=== PATIENT | male | born 1985 | race Caucasian/White ===

== ENCOUNTER 2016-04-12 21:39 | Emergency (ER) | payer SELFPAY ==
[~2016-04-12] VITALS: Ht 175.3 cm; Wt 96.4 kg
[~2016-04-12 21:39] MED LIST: VIST50CA PO; Z.0.NO CURRENT MEDS
[2016-04-12 21:40] VITALS: BP 142/92; PULSE 95; RESP 16; TEMP 99.6; O2SAT 97
--- NOTE | 2016-04-12 22:05 | PD ---
HPI Chief Complaint: Cold / Flu Symptoms Time Seen by Provider: 22:05 Travel History International Travel<30 days: No Contact w/Intl Traveler<30days: No Traveled to known affect area: No History of Present Illness HPI 30-year-old male with no significant medical history presents to the emergency department for cough, chest congestion, fever, and chills for the last 3 days. Patient states he's been taking [id number] antitussive with no relief of his symptoms. Cough is intermittently productive. States he has been unable to smoke tobacco cigarettes since it began. Denies any pain. No nausea, vomiting, no diarrhea. No other symptoms to report. PFSH Past Medical History Medical History: Denies Significant Hx Social History Alcohol Use: No Tobacco Use: Yes Substance Use: No Allergies-Medications (Allergen,Severity, Reaction): Coded Allergies: Benadryl (Verified Allergy, Severe, CAN'T REMEMBER, 04/01/12) Reglan (Verified Allergy, Severe, CAN'T REMEMBER, 04/01/12) Reported Meds & Prescriptions Reported Meds & Active Scripts Active Prednisone 50 Mg Tab 50 Mg PO DAILY 5 Days Proair Hfa 8.5 GM Inh (Albuterol Sulfate) 90 Mcg/Act Aer 2 Puff INH Q4HR PRN 108 mcg/actuation Zithromax Z-Jose (Azithromycin) 250 Mg Dspk 250 Mg PO DIRECTED 500 MG (2 tabs) day 1, then 1 tab days 2-5. Vistaril 50 MG CAP (Hydroxyzine Pamoate) 50 Mg Cap 50 Mg PO Q6HPRN Reported No Current Meds (Miscellaneous Medication) [facility] Review of Systems Except as stated in HPI: all other systems reviewed are Neg Physical Exam Narrative GENERAL: Well-nourished male patient, in no acute distress SKIN: Warm and dry. HEAD: Atraumatic. Normocephalic. EYES: Pupils equal and round. No scleral icterus. No injection or drainage. ENT: No nasal bleeding or discharge. Mucous membranes pink and moist. NECK: Trachea midline. No JVD. CARDIOVASCULAR: Elevated rate and rhythm. No murmur appreciated. RESPIRATORY: No accessory muscle use. Coarse throughout with inspiratory and expiratory wheezes in the right upper lobe GASTROINTESTINAL: Abdomen soft, non-tender, nondistended. Hepatic and splenic margins not palpable. MUSCULOSKELETAL: No obvious deformities. No clubbing. No cyanosis. No edema. NEUROLOGICAL: Awake and alert. No obvious cranial nerve deficits. Motor grossly within normal limits. Normal speech. PSYCHIATRIC: Appropriate mood and affect; insight and judgment normal. Data Data Last Documented VS Vital Signs Date Time Temp Pulse Resp B/P Pulse Ox O2 Delivery O2 Flow Rate FiO2 04/12/16 21:59 Room Air 04/12/16 21:40 99.6 95 16 142/92 97 Orders Influenzae A/B Antigen (04/12/16 22:11) Chest, Single Ap (04/12/16 ) Group A Rapid Strep Screen (04/12/16 22:11) Ibuprofen (Motrin) (04/12/16 22:15) Albuterol-Ipratropium Neb (Duoneb Neb) (04/12/16 22:15) Strep Culture (Group A) (04/12/16 22:20) MDM Medical Decision Making Medical Screen Exam Complete: Yes Emergency Medical Condition: Yes Medical Record Reviewed: Yes Differential Diagnosis Influenza versus pneumonia versus bronchitis versus viral illness Narrative Course 30-year-old male presents to the emergency department for evaluation. Patient appears without distress. He does have coarse breath sounds throughout with inspiratory and expiratory wheeze in the right upper lobe. DuoNeb was provided. X-ray imaging shows Last Impressions Chest X-Ray 04/12/16 0000 Signed Impressions: Service Date/Time: Tuesday, April 12, 2016 22:50 - CONCLUSION: 1. Subsegmental basilar and perihilar airspace disease most characteristic of a mild bronchopneumonia. Anthony Robertson MD Patient has low-grade temperature here. He is counseled on smoking cessation. He'll be started on azithromycin, short course of oral steroids, and provided a pro-air inhaler prescription. He agrees to return immediately with any acute worsening of symptoms. Diagnosis Primary Impression: Bronchopneumonia Referrals: Primary Care Physician Patient Instructions: Community Acquired Pneumonia (ED), General Instructions Additional Instructions: Humidified air may help to alleviate symptoms Tylenol or ibuprofen as directed on the package as needed for pain and/or fever Return immediately to the emergency department with any acute worsening of symptoms Med/Other Pt SpecificInfo: Prescription(s) given Scripts Prednisone 50 Mg Tab50 Mg PO DAILY 5 Days Ref 0 Prov:Michell Shukla 04/12/16 Albuterol 8.5 GM Inh (Proair Hfa 8.5 GM Inh)90 Mcg/Act Aer2 Puff INH Q4HR PRN ( SHORTNESS OF BREATH) #1 INHALER Ref 0 108 mcg/actuation Prov:Michell Shukla 04/12/16 Azithromycin (Zithromax Z-Jose)250 Mg [id number] Mg PO DIRECTED #1 DSPK Ref 0 500 MG (2 tabs) day 1, then 1 tab days 2-5. Prov:Michell Shukla 04/12/16 Disposition: 01 DISCHARGE HOME Condition: Stable Michell Shukla Apr 12, 2016 22:05
[2016-04-12] MEDS ORDERED: IBUPROFEN 800 MG TAB PO ONE (22:15)
[2016-04-12] MEDS ORDERED: RESP: ALBUTEROL 2.5 MG/IPRATROPIUM 0.5 MG NEB (SCH) NEB ONE (22:15)
--- NOTE | 2016-04-12 22:58 | RADRPT ---
EXAM DATE/TIME: 04/12/2016 22:50 [facility] COMPARISON: No previous studies available for comparison. INDICATIONS : Flu like symptoms and cough for four days. MEDICAL HISTORY : None. SURGICAL HISTORY : None. ENCOUNTER: Initial ACUITY: 4 - 6 days PAIN SCORE: 9/10 LOCATION: Bilateral upper chest FINDINGS: There is subsegmental basilar airspace disease most characteristic of a mild bronchopneumonia. No eff usion. No pneumothorax. Heart size normal. CONCLUSION: 1. Subsegmental basilar and perihilar airspace disease most characteristic of a mild bronchopneumonia . Anthony Robertson MD on April 12, 2016 at 22:56 Board Certified Radiologist. This report was verified electronically.
[2016-04-12] MEDS ORDERED: ZITHTAB PO (23:06)
[2016-04-12] MEDS ORDERED: ALBUAER3 INH (23:07)
[2016-04-12] MEDS ORDERED: PRED50 PO (23:07)
== END 2016-04-12 23:12 | disposition home or self-care (01) ==
LOC: NEPB 21:39
DX: J18.0 Bronchopneumonia, unspecified organism (principal); Z72.0 Tobacco use
CPT/HCPCS: 71010; 87081; 87804; 87880; 94664; 99283

== ENCOUNTER 2016-05-25 15:49 | Emergency (ER) | payer SELFPAY ==
[~2016-05-25] VITALS: Ht 172.7 cm; Wt 97.5 kg
[~2016-05-25 15:49] MED LIST changes: +ALBUAER3 INH; +PRED50 PO; +ZITHTAB PO
[2016-05-25 15:50] VITALS: BP 146/79; PULSE 129; PULSE 229; RESP 20; TEMP 98.6; O2SAT 96
[2016-05-25 16:09] VITALS: PULSE 111
[2016-05-25] MEDS ORDERED: SODIUM CHLORIDE 0.9% FLUSH 10 ML FLUSH IVF PRN (21:30)
--- NOTE | 2016-05-25 21:30 | PD ---
HPI Chief Complaint: Medical Clearance Time Seen by Provider: 21:30 Travel History International Travel<30 days: No Contact w/Intl Traveler<30days: No Traveled to known affect area: No History of Present Illness HPI 30-year-old male presents to the emergency department for evaluation of chest pain and medical clearance. The patient states that he has a history of substance abuse and has been on a "gibson" over the past 5 days. States that he went to [facility] today to check himself into detox and they told him that his heart rate was too high and that he would have to come here for medical clearance before he could enter their program. Patient states that since leaving there he began to develop right chest wall pain. States that the pain is sharp and intermittent aggravated with movement and inspiration. He denies any shortness of breath, difficulty breathing, lightheadedness, dizziness , nausea, vomiting, abdominal pain, cough or cold symptoms. Denies any history of heart disease or OR. Denies any family history of sudden cardiac . States that he last used drugs yesterday, has not used any today. States that he uses IV methamphetamines, Dilaudid and crack, he also smokes the crack and meth. No other complaints. He is requesting something to eat and drink. PFSH Past Medical History Medical History: Denies Significant Hx Past Surgical History Surgical History: No Previous Surgery Social History Alcohol Use: Yes (OCC) Tobacco Use: Yes (1/2PPD) Substance Use: Yes (METH 05/24/16) Allergies-Medications (Allergen,Severity, Reaction): Coded Allergies: Benadryl (Verified Allergy, Severe, CAN'T REMEMBER, 05/25/16) Reglan (Verified Allergy, Severe, CAN'T REMEMBER, 05/25/16) Reported Meds & Prescriptions Reported Meds & Active Scripts Active No Active Prescriptions or Reported Medications Review of Systems Except as stated in HPI: all other systems reviewed are Neg Physical Exam Narrative GENERAL: Well-nourished and well-developed pleasant male patient in no acute distress who is nontoxic appearing. SKIN: Warm and dry. HEAD: Normocephalic and atraumatic. EYES: No injection, drainage, or hyphema noted. PERRLA. EOMI. ENT: No nasal drainage noted. Oropharynx is clear. NECK: Supple and the trachea is midline. CARDIOVASCULAR: Regular rate and rhythm. RESPIRATORY: Breath sounds are equal bilaterally with no accessory muscle use, wheezing, rhonchi, or crackles. GASTROINTESTINAL: Abdomen is soft, non-tender, and nondistended. MUSCULOSKELETAL: No obvious deformities, swelling, cyanosis, or ecchymosis is present throughout the upper and lower extremities. Patient has full range of motion without any signs of neurovascular compromise. NEUROLOGICAL: Awake, alert, and oriented. Normal speech and gait. Cranial nerves are grossly intact. Data Data Last Documented VS Vital Signs Date Time Temp Pulse Resp B/P Pulse Ox O2 Delivery O2 Flow Rate FiO2 05/25/16 22:27 98.0 104 20 122/75 96 Room Air Orders Electrocardiogram (05/25/16 ) Ckmb (Isoenzyme) Profile (05/25/16 21:25) Complete Blood Count With Diff (05/25/16 21:25) Comprehensive Metabolic Panel (05/25/16 21:25) Magnesium (Mg) (05/25/16 21:25) Prothrombin Time / Inr (Pt) (05/25/16 21:25) Act Partial Throm Time (Ptt) (05/25/16 21:25) Troponin I (05/25/16 21:25) Chest, Single Ap (05/25/16 21:25) Ecg Monitoring (05/25/16 21:25) Bilateral Bp Monitoring (05/25/16 21:25) Iv Access Insert/Monitor (05/25/16 21:25) Oximetry (05/25/16 21:25) Oxygen Administration (05/25/16 21:25) Sodium Chloride 0.9% Flush (Ns Flush) (05/25/16 21:30) D-Dimer (05/25/16 21:30) Sodium Chlor 0.9% 1000 Ml Inj (Ns 1000 M (05/25/16 22:19) Lorazepam Inj (Ativan Inj) (05/25/16 23:00) Labs Laboratory Tests Test 05/25/16 22:20 White Blood Count 15.1 TH/MM3 Red Blood Count 5.71 MIL/MM3 Hemoglobin 16.5 GM/DL Hematocrit 46.4 % Mean Corpuscular Volume 81.2 FL Mean Corpuscular Hemoglobin 28.9 PG Mean Corpuscular Hemoglobin 35.6 % Concent Red Cell Distribution Width 14.8 % Platelet Count 219 TH/MM3 Mean Platelet Volume 8.2 FL Neutrophils (%) (Auto) 73.5 % Lymphocytes (%) (Auto) 17.3 % Monocytes (%) (Auto) 8.3 % Eosinophils (%) (Auto) 0.5 % Basophils (%) (Auto) 0.4 % Neutrophils # (Auto) 11.1 TH/MM3 Lymphocytes # (Auto) 2.6 TH/MM3 Monocytes # (Auto) 1.3 TH/MM3 Eosinophils # (Auto) 0.1 TH/MM3 Basophils # (Auto) 0.1 TH/MM3 CBC Comment DIFF FINAL Differential Comment Prothrombin Time 11.2 SEC Prothromb Time International 1.0 RATIO Ratio Activated Partial 30.0 SEC Thromboplast Time Sodium Level 142 MEQ/L Potassium Level 3.6 MEQ/L Chloride Level 105 MEQ/L Carbon Dioxide Level 28.7 MEQ/L Anion Gap 8 MEQ/L Blood Urea Nitrogen 14 MG/DL Creatinine 1.21 MG/DL Estimat Glomerular Filtration 71 ML/MIN Rate Random Glucose 88 MG/DL Calcium Level 9.1 MG/DL Magnesium Level 2.3 MG/DL Aspartate Amino Transf 8 U/L (AST/SGOT) Alanine Aminotransferase 17 U/L (ALT/SGPT) Albumin 4.2 GM/DL MDM Medical Decision Making Medical Screen Exam Complete: Yes Emergency Medical Condition: Yes Differential Diagnosis Chest wall pain versus pleuritic pain versus musculoskeletal pain versus ACS versus substance abuse Narrative Course 30-year-old male with history of substance abuse presents to the emergency department requesting medical clearance and complaining of chest pain. Patient is initially tachycardic with a heart rate of 129 bpm. His heart rate is now normalized to 100 bpm. EKG shows sinus tachycardia with no acute ST elevations or depressions. Physical examination essentially unremarkable. IV access is obtained, labs are drawn and sent. Chest x-ray is negative for any acute abnormalities. Patient signed out to Dr. Trent who will assume care of the patient and disposition. Scripts No Active Prescriptions or Reported Meds Jeana Ashton May 25, 2016 21:30
[2016-05-25 22:01] VITALS: RESP 20
--- NOTE | 2016-05-25 22:03 | RADRPT ---
EXAM DATE/TIME: 05/25/2016 21:42 [facility] COMPARISON: CHEST SINGLE AP, April 12, 2016, 22:50. INDICATIONS : Chest pain. MEDICAL HISTORY : None. SURGICAL HISTORY : None. ENCOUNTER: Initial ACUITY: 1 day PAIN SCORE: 10/10 LOCATION: middle chest. FINDINGS: The lungs are clear without infiltrate, nodule, or mass. There is no appreciable pleural effusion fo r technique. Heart and mediastinum are unremarkable. CONCLUSION: No acute cardiopulmonary disease. Clover Banuelos MD on May 25, 2016 at 22:01 Board Certified Radiologist. This report was verified electronically.
[2016-05-25] MEDS ORDERED: SODIUM CHLOR 0.9% 1000 ML INJ 1,000 ML IV SCH (22:19)
[2016-05-25 22:27] VITALS: BP 122/75; PULSE 104; RESP 20; TEMP 98; O2SAT 96
[2016-05-25 22:42] LABS: AUTOMATED NEUTROPHIL # 11.1 TH/MM3 (1.8-7.7); BASOPHIL # 0.1 TH/MM3 (0-0.2); BASOPHIL % 0.4 % (0.0-2.0); EOSINOPHIL # 0.1 TH/MM3 (0-0.4); EOSINOPHIL % 0.5 % (0.0-4.0); HEMATOCRIT 46.4 % (39.0-51.0); HEMO FLAGS DIFF FINAL; LYMPH % 17.3 % (9.0-44.0); LYMPHOCYTE # 2.6 TH/MM3 (1.0-4.8); MEAN CELL VOLUME 81.2 FL (80.0-100.0); MEAN CORPUSCULAR HEMOGLOBIN 28.9 PG (27.0-34.0); MEAN CORPUSCULAR HGB CONC 35.6 % (32.0-36.0); MONO % 8.3 % (0.0-8.0); NEUT % 73.5 % (16.0-70.0); PLATELET COUNT 219 TH/MM3 (150-450); RED BLOOD COUNT 5.71 MIL/MM3 (4.50-5.90); RED CELL DISTRIBUTION WIDTH 14.8 % (11.6-17.2); WHITE BLOOD COUNT 15.1 TH/MM3 (4.0-11.0)
[2016-05-25 22:51] LABS: PROTHROMBIN TIME - PATIENT 11.2 SEC (9.8-11.6)
[2016-05-25 22:59] LABS: ALT (GPT) 17 U/L (12-78); ANION GAP 8 MEQ/L (5-15); AST (GOT) 8 U/L (15-37); BICARBONATE 28.7 MEQ/L (21.0-32.0); BLOOD UREA NITROGEN 14 MG/DL (7-18); CHLORIDE 105 MEQ/L (98-107); GLOMERULAR FILTRATION RATE 71 ML/MIN (>89); MAGNESIUM 2.3 MG/DL (1.5-2.5); POTASSIUM 3.6 MEQ/L (3.5-5.1); SODIUM (NA) 142 MEQ/L (136-145)
[2016-05-25] MEDS ORDERED: LORazepam 2 MG/ML VIAL IV PUSH ONE (23:00)
[2016-05-25 23:02] LABS: ALKALINE PHOSPHATASE 67 U/L (45-117); CREATINE KINASE 177 U/L (39-308); TOTAL BILIRUBIN ADULT 1.5 MG/DL (0.2-1.0)
[2016-05-25 23:15] LABS: CKMB 1.7 NG/ML (0.5-3.6)
[2016-05-25] MEDS ORDERED: IOHEXOL 350 MG/ML 10 ML VIAL (for RAD DIAG) IV ONE (23:52)
--- NOTE | 2016-05-26 00:05 | RADRPT ---
EXAM DATE/TIME: 05/25/2016 23:51 [facility] COMPARISON: CHEST SINGLE AP, May 25, 2016, 21:42. INDICATIONS : Chest pain. IV CONTRAST: 72 cc Omnipaque 350 (iohexol) IV RADIATION DOSE: 233.38 CTDIvol (mGy) MEDICAL HISTORY : None SURGICAL HISTORY : None. ENCOUNTER: Initial ACUITY: 1 day PAIN SCALE: 6/10 LOCATION: Bilateral chest TECHNIQUE: Volumetric scanning of the chest was performed using a pulmonary embolism protocol MIP images were re constructed. Using automated exposure control and adjustment of the mA and/or kV according to patien t size, radiation dose was kept as low as reasonably achievable to obtain optimal diagnostic quality images. FINDINGS: PULMONARY ARTERIES: No filling defects are seen in the pulmonary arteries through the segmental level. LUNGS: There is no consolidation or pneumothorax . No concerning pulmonary nodule is visualized. PLEURAE: There is no pleural thickening or pleural effusion. MEDIASTINUM: There is good visualization of the great vessels of the middle mediastinum. No evidence of mediastin al or hilar adenopathy/mass. MUSCULOSKELETAL: Within normal limits for patient age. MISCELLANEOUS: The visualized upper abdominal organs demonstrate no acute abnormality. CONCLUSION: Normal examination. Gino Barajas MD on May 26, 2016 at 0:02 Board Certified Radiologist. This report was verified electronically.
--- NOTE | 2016-05-26 00:45 | PD ---
Data Data Last Documented VS Vital Signs Date Time Temp Pulse Resp B/P Pulse Ox O2 Delivery O2 Flow Rate FiO2 05/25/16 22:27 98.0 104 20 122/75 96 Room Air Orders Electrocardiogram (05/25/16 ) Ckmb (Isoenzyme) Profile (05/25/16 21:25) Complete Blood Count With Diff (05/25/16 21:25) Comprehensive Metabolic Panel (05/25/16 21:25) Magnesium (Mg) (05/25/16 21:25) Prothrombin Time / Inr (Pt) (05/25/16 21:25) Act Partial Throm Time (Ptt) (05/25/16 21:25) Troponin I (05/25/16 21:25) Chest, Single Ap (05/25/16 21:25) Ecg Monitoring (05/25/16 21:25) Bilateral Bp Monitoring (05/25/16 21:25) Iv Access Insert/Monitor (05/25/16 21:25) Oximetry (05/25/16 21:25) Oxygen Administration (05/25/16 21:25) Sodium Chloride 0.9% Flush (Ns Flush) (05/25/16 21:30) D-Dimer (05/25/16 21:30) Sodium Chlor 0.9% 1000 Ml Inj (Ns 1000 M (05/25/16 22:19) Lorazepam Inj (Ativan Inj) (05/25/16 23:00) Ct Pulmonary Angiogram (05/25/16 23:02) CKMB (05/25/16 22:20) CKMB% (05/25/16 22:20) Iohexol 350 Inj (Omnipaque 350 Inj) (05/25/16 23:52) Labs Laboratory Tests Test 05/25/16 22:20 White Blood Count 15.1 TH/MM3 Red Blood Count 5.71 MIL/MM3 Hemoglobin 16.5 GM/DL Hematocrit 46.4 % Mean Corpuscular Volume 81.2 FL Mean Corpuscular Hemoglobin 28.9 PG Mean Corpuscular Hemoglobin 35.6 % Concent Red Cell Distribution Width 14.8 % Platelet Count 219 TH/MM3 Mean Platelet Volume 8.2 FL Neutrophils (%) (Auto) 73.5 % Lymphocytes (%) (Auto) 17.3 % Monocytes (%) (Auto) 8.3 % Eosinophils (%) (Auto) 0.5 % Basophils (%) (Auto) 0.4 % Neutrophils # (Auto) 11.1 TH/MM3 Lymphocytes # (Auto) 2.6 TH/MM3 Monocytes # (Auto) 1.3 TH/MM3 Eosinophils # (Auto) 0.1 TH/MM3 Basophils # (Auto) 0.1 TH/MM3 CBC Comment DIFF FINAL Differential Comment Prothrombin Time 11.2 SEC Prothromb Time International 1.0 RATIO Ratio Activated Partial 30.0 SEC Thromboplast Time D-Dimer Quantitative (PE/DVT) 0.27 MG/L FEU Sodium Level 142 MEQ/L Potassium Level 3.6 MEQ/L Chloride Level 105 MEQ/L Carbon Dioxide Level 28.7 MEQ/L Anion Gap 8 MEQ/L Blood Urea Nitrogen 14 MG/DL Creatinine 1.21 MG/DL Estimat Glomerular Filtration 71 ML/MIN Rate Random Glucose 88 MG/DL Calcium Level 9.1 MG/DL Magnesium Level 2.3 MG/DL Total Bilirubin 1.5 MG/DL Aspartate Amino Transf 8 U/L (AST/SGOT) Alanine Aminotransferase 17 U/L (ALT/SGPT) Alkaline Phosphatase 67 U/L Total Creatine Kinase 177 U/L Creatine Kinase MB 1.7 NG/ML Troponin I LESS THAN 0.02 NG/ML Total Protein 7.1 GM/DL Albumin 4.2 GM/DL [facility] Medical Record Reviewed: Yes Supervised Visit with TIMI: Yes Narrative Course I, Dr. Trent, have reviewed the advance practice practitioner's documentation and am in agreement, met with the patient face to face, made the diagnosis, and the medical decision making was done by me. *My assessment and Findings: Work up today reveals the following: CBC & BMP Diagram 05/25/16 22:20 LFTs normal Tn < 0.02 EKG: Sinus, rate 111, FL interval 112, normal axis Last [address] Angiography 05/25/162301 Signed Impressions: Service Date/Time: Wednesday, May 25, 2016 23:51 - CONCLUSION: Normal examination. Gino Barajas MD Chest X-Ray 05/25/162124 Signed Impressions: Service Date/Time: Wednesday, May 25, 2016 21:42 - CONCLUSION: No acute cardiopulmonary disease. Clover Banuelos MD Patient has been resting comfortably since he received Ativan. He was encountered talking with his friend on the phone upon reexamination prior to discharge. We discussed potential etiologies for the patient's tachycardia. Obviously in the setting of IV drug abuse there is concern for endocarditis. He is afebrile. There is no evidence of septic embolic processes and the CT chest. In this scenario endocarditis is considered quite a bit less likely. The patient is medically clear for discharge. Diagnosis Primary Impression: Tachycardia Additional Impression: Polysubstance abuse Referrals: [facility] 1 day Additional Instruction: You have a choice when it comes to health care, and we are glad that you chose [facility]. Hopefully, we have met your expectations on today's visit. You are welcome to return to [facility] at any time, as we are committed to meeting the health care needs of our community. Med/Other Pt SpecificInfo: No Change to Meds Scripts No Active Prescriptions or Reported Meds Disposition: DISCHARGE HOME Condition: Stable Scottie Trent MD May 26, 2016 00:45
--- NOTE | 2016-05-26 10:37 | EKG ---
Date Performed: 05/25/2016 Time Performed: 16:22:17 PTAGE: 30 years EKG: SINUS TACHYCARDIA WITH SHORT MN INTERVAL ABNORMAL RHYTHM ECG PREVIOUS TRACING : 04/01/2012 13.02 DOCTOR: Wayne Palencia Interpretating Date/Time 05/26/2016 10:36:13
== END 2016-05-26 02:23 | disposition home or self-care (01) ==
LOC: NEPC 15:49
DX: Z02.89 Encounter for other administrative examinations (principal); R00.0 Tachycardia, unspecified; F19.10 Other psychoactive substance abuse, uncomplicated; F17.210 Nicotine dependence, cigarettes, uncomplicated
CPT/HCPCS: 71010; 71275; 80053; 82550; 82552; 83735; 84484; 85025; 85379; 85610; 85730; 93005; 96374; 99285; J2060; J7030; Q9967

== ENCOUNTER 2016-06-25 23:54 | Emergency (ER) | payer SELFPAY ==
[2016-06-26 00:30] VITALS: BP 113/61; PULSE 75; RESP 18; TEMP 97.7; O2SAT 97
[2016-06-26] MEDS ORDERED: SODIUM CHLORIDE 0.9% FLUSH 10 ML FLUSH IVF PRN (01:15)
[2016-06-26] MEDS ORDERED: SODIUM CHLORID 0.9% 500 ML INJ 500 ML IV ONE (01:15)
--- NOTE | 2016-06-26 01:19 | PD ---
HPI Chief Complaint: Cardiac Complaint Time Seen by Provider: 01:13 Travel History International Travel<30 days: No Contact w/Intl Traveler<30days: No Traveled to known affect area: No History of Present Illness HPI The patient is a 30-year-old male who presents to the emergency department from [facility] for chest pain. 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 The patient was at [facility] earlier today where he received Ativan, Benadryl, and clonidine. The patient developed left-sided chest pain which she described as dull, achy, nonradiating, and associated with a cough. Patient does have a history tobacco use, denies any shortness of breath, nausea, vomiting, or diaphoresis. The patient states that chest pain was dull, and is currently resolved. The patient denies any known history of coronary artery disease, hypertension, hyperlipidemia, diabetes, or significant family medical history for early CAD. He does have a history tobacco use. Symptoms are moderate, no known alleviating or exacerbating factors. PFSH Past Medical History Medical History: Denies Significant Hx Diminished Hearing: No Past Surgical History Surgical History: No Previous Surgery Social History Alcohol Use: Yes (OCC) Tobacco Use: Yes (2PPD) Substance Use: Yes (METH 05/24/16) Allergies-Medications (Allergen,Severity, Reaction): Coded Allergies: Benadryl (Verified Allergy, Severe, CAN'T REMEMBER, 05/25/16) Reglan (Verified Allergy, Severe, CAN'T REMEMBER, 05/25/16) Reported Meds & Prescriptions Reported Meds & Active Scripts Active No Active Prescriptions or Reported Medications Review of Systems Except as stated in HPI: all other systems reviewed are Neg Cardiovascular: Positive: Chest Pain or Discomfort, No: Diaphoresis Respiratory: Positive: Cough, No: Shortness of Breath Gastrointestinal: No: Nausea, Vomiting, Abdominal Pain Neurologic: No: Weakness, Dizziness Psychiatric: Positive: Substance Abuse Physical Exam Narrative GENERAL: Awake, alert, nontoxic-appearing 30-year-old male who appears his stated age and is in no acute respiratory distress. SKIN: Focused skin assessment warm/dry. HEAD: Atraumatic. Normocephalic. EYES: Pupils equal and round. Mild injection bilaterally. ENT: No nasal bleeding or discharge. Mucous membranes pink and moist. NECK: Trachea midline. No JVD. CARDIOVASCULAR: Regular rate and rhythm. No murmur appreciated. Palpation the chest wall does not reproduce symptoms. RESPIRATORY: No accessory muscle use. Clear to auscultation. Breath sounds equal bilaterally. GASTROINTESTINAL: Abdomen soft, non-tender, nondistended. No rebound tenderness. MUSCULOSKELETAL: No obvious deformities. No clubbing. No cyanosis. No edema. NEUROLOGICAL: Awake and alert. No obvious cranial nerve deficits. Motor grossly within normal limits. Normal speech. Nonfocal. PSYCHIATRIC: Appropriate mood and affect; insight and judgment normal. Data Data Last Documented VS Vital Signs Date Time Temp Pulse Resp B/P Pulse Ox O2 Delivery O2 Flow Rate FiO2 06/26/16 01:29 100 Room Air 06/26/16 01:29 74 16 06/26/16 00:30 97.7 113/61 Orders Electrocardiogram (06/26/16 01:13) Ckmb (Isoenzyme) Profile (06/26/16 01:13) Complete Blood Count With Diff (06/26/16 01:13) Comprehensive Metabolic Panel (06/26/16 01:13) Magnesium (Mg) (06/26/16 01:13) Troponin I (06/26/16 01:13) Lipase (06/26/16 01:13) Chest, Single Ap (06/26/16 01:13) Ecg Monitoring (06/26/16 01:13) Bilateral Bp Monitoring (06/26/16 01:13) Iv Access Insert/Monitor (06/26/16 01:13) Oximetry (06/26/16 01:13) Oxygen Administration (06/26/16 01:13) Sodium Chloride 0.9% Flush (Ns Flush) (06/26/16 01:15) Sodium Chlorid 0.9% 500 Ml Inj (Ns 500 M (06/26/16 01:15) CKMB (06/26/16 01:20) CKMB% (06/26/16 01:20) Labs Laboratory Tests Test 06/26/16 01:20 White Blood Count 6.0 TH/MM3 Red Blood Count 5.44 MIL/MM3 Hemoglobin 15.5 GM/DL Hematocrit 44.5 % Mean Corpuscular Volume 81.8 FL Mean Corpuscular Hemoglobin 28.4 PG Mean Corpuscular Hemoglobin 34.8 % Concent Red Cell Distribution Width 14.4 % Platelet Count 171 TH/MM3 Mean Platelet Volume 7.8 FL Neutrophils (%) (Auto) 70.8 % Lymphocytes (%) (Auto) 16.6 % Monocytes (%) (Auto) 11.1 % Eosinophils (%) (Auto) 0.6 % Basophils (%) (Auto) 0.9 % Neutrophils # (Auto) 4.3 TH/MM3 Lymphocytes # (Auto) 1.0 TH/MM3 Monocytes # (Auto) 0.7 TH/MM3 Eosinophils # (Auto) 0.0 TH/MM3 Basophils # (Auto) 0.1 TH/MM3 CBC Comment DIFF FINAL Differential Comment Sodium Level 138 MEQ/L Potassium Level 3.6 MEQ/L Chloride Level 101 MEQ/L Carbon Dioxide Level 31.0 MEQ/L Anion Gap 6 MEQ/L Blood Urea Nitrogen 13 MG/DL Creatinine 1.06 MG/DL Estimat Glomerular Filtration 83 ML/MIN Rate Random Glucose 90 MG/DL Calcium Level 8.7 MG/DL Magnesium Level 2.2 MG/DL Total Bilirubin 1.5 MG/DL Aspartate Amino Transf 16 U/L (AST/SGOT) Alanine Aminotransferase 19 U/L (ALT/SGPT) Alkaline Phosphatase 65 U/L Total Creatine Kinase 155 U/L Creatine Kinase MB 0.7 NG/ML Troponin I LESS THAN 0.02 NG/ML Total Protein 7.4 GM/DL Albumin 4.0 GM/DL Lipase 211 U/L MDM Medical Decision Making Medical Screen Exam Complete: Yes Emergency Medical Condition: Yes Medical Record Reviewed: Yes Interpretation(s) EKG reveals normal sinus rhythm with a rate of 71. Inverted T waves noted in lead 3. No evidence of pericarditis. No ischemic changes noted. Laboratory Tests Test 06/26/16 01:20 White Blood Count 6.0 TH/MM3 Red Blood Count 5.44 MIL/MM3 Hemoglobin 15.5 GM/DL Hematocrit 44.5 % Mean Corpuscular Volume 81.8 FL Mean Corpuscular Hemoglobin 28.4 PG Mean Corpuscular Hemoglobin 34.8 % Concent Red Cell Distribution Width 14.4 % Platelet Count 171 TH/MM3 Mean Platelet Volume 7.8 FL Neutrophils (%) (Auto) 70.8 % Lymphocytes (%) (Auto) 16.6 % Monocytes (%) (Auto) 11.1 % Eosinophils (%) (Auto) 0.6 % Basophils (%) (Auto) 0.9 % Neutrophils # (Auto) 4.3 TH/MM3 Lymphocytes # (Auto) 1.0 TH/MM3 Monocytes # (Auto) 0.7 TH/MM3 Eosinophils # (Auto) 0.0 TH/MM3 Basophils # (Auto) 0.1 TH/MM3 CBC Comment DIFF FINAL Differential Comment Sodium Level 138 MEQ/L Potassium Level 3.6 MEQ/L Chloride Level 101 MEQ/L Carbon Dioxide Level 31.0 MEQ/L Anion Gap 6 MEQ/L Blood Urea Nitrogen 13 MG/DL Creatinine 1.06 MG/DL Estimat Glomerular Filtration 83 ML/MIN Rate Random Glucose 90 MG/DL Calcium Level 8.7 MG/DL Magnesium Level 2.2 MG/DL Total Bilirubin 1.5 MG/DL Aspartate Amino Transf 16 U/L (AST/SGOT) Alanine Aminotransferase 19 U/L (ALT/SGPT) Alkaline Phosphatase 65 U/L Total Creatine Kinase 155 U/L Creatine Kinase MB 0.7 NG/ML Troponin I LESS THAN 0.02 NG/ML Total Protein 7.4 GM/DL Albumin 4.0 GM/DL Lipase 211 U/L Chest x-ray reveals normal examination. Differential Diagnosis Differential diagnosis includes pericarditis, myocarditis, acute coronary syndrome, bronchitis, pneumonia, musculoskeletal pain, withdrawal. Narrative Course IV was established, labs are drawn and sent, and the patient was placed on cardiac telemetry monitoring and continuous pulse oximetry monitoring. EKG was ordered and interpreted. Chest x-ray was obtained. The patient is currently chest pain-free and has no significant risk factors except for smoking, therefore, aspirin was withheld. The patient's initial troponin was negative. The patient's pain was several hours prior to arrival and dissipated prior to arrival. Patient has very atypical symptoms, he is stable for outpatient follow -up. Chest x-rays unremarkable. The patient will be sent back to [facility]. Diagnosis Primary Impression: Atypical chest pain Patient Instructions: General Instructions Additional Instructions: Transfer back to [facility]. Stop using drugs. Follow-up with your primary physician. Return if symptoms worsen or progress. Med/Other Pt SpecificInfo: No Change to Meds Scripts No Active Prescriptions or Reported Meds Disposition: DISCHARGE HOME Condition: Stable Noah Tabares MD Jun 26, 2016 01:19
[2016-06-26 01:29] VITALS: PULSE 74; RESP 16; O2SAT 100
[2016-06-26 01:37] LABS: AUTOMATED NEUTROPHIL # 4.3 TH/MM3 (1.8-7.7); BASOPHIL # 0.1 TH/MM3 (0-0.2); BASOPHIL % 0.9 % (0.0-2.0); EOSINOPHIL % 0.6 % (0.0-4.0); HEMATOCRIT 44.5 % (39.0-51.0); HEMO FLAGS DIFF FINAL; LYMPH % 16.6 % (9.0-44.0); MEAN CELL VOLUME 81.8 FL (80.0-100.0); MEAN CORPUSCULAR HEMOGLOBIN 28.4 PG (27.0-34.0); MEAN CORPUSCULAR HGB CONC 34.8 % (32.0-36.0); MONO % 11.1 % (0.0-8.0); NEUT % 70.8 % (16.0-70.0); PLATELET COUNT 171 TH/MM3 (150-450); RED BLOOD COUNT 5.44 MIL/MM3 (4.50-5.90); RED CELL DISTRIBUTION WIDTH 14.4 % (11.6-17.2)
[2016-06-26 01:58] LABS: ALT (GPT) 19 U/L (12-78); ANION GAP 6 MEQ/L (5-15); AST (GOT) 16 U/L (15-37); BLOOD UREA NITROGEN 13 MG/DL (7-18); CHLORIDE 101 MEQ/L (98-107); GLOMERULAR FILTRATION RATE 83 ML/MIN (>89); MAGNESIUM 2.2 MG/DL (1.5-2.5); POTASSIUM 3.6 MEQ/L (3.5-5.1); SODIUM (NA) 138 MEQ/L (136-145)
[2016-06-26 02:02] LABS: ALKALINE PHOSPHATASE 65 U/L (45-117); CREATINE KINASE 155 U/L (39-308); TOTAL BILIRUBIN ADULT 1.5 MG/DL (0.2-1.0)
[2016-06-26 02:14] LABS: CKMB 0.7 NG/ML (0.5-3.6)
--- NOTE | 2016-06-26 02:18 | RADRPT ---
EXAM DATE/TIME: 06/26/2016 01:23 [facility] COMPARISON: CHEST SINGLE AP, May 25, 2016, 21:42. INDICATIONS : Chest pain. MEDICAL HISTORY : Smoker. SURGICAL HISTORY : None. ENCOUNTER: Initial ACUITY: 1 day PAIN SCORE: 6/10 LOCATION: Left chest FINDINGS: A single view of the chest demonstrates the lungs to be symmetrically aerated without evidence of mas s, infiltrate or effusion. The cardiomediastinal contours are unremarkable. Osseous structures are intact. CONCLUSION: Normal examination. Ralph Barton Jr., MD on June 26, 2016 at 2:17 Board Certified Radiologist. This report was verified electronically.
--- NOTE | 2016-06-26 13:40 | EKG ---
Date Performed: 06/26/2016 Time Performed: 01:25:46 PTAGE: 30 years EKG: Sinus rhythm NORMAL ECG Compared to prior tracing no significant change PREVIOUS TRACING : 05/25/2016 16.22 DOCTOR: Nadir Ballard Interpretating Date/Time 06/26/2016 13:36:13
== END 2016-06-26 04:09 | disposition home or self-care (01) ==
LOC: NEPC 23:54
DX: R07.89 Other chest pain (principal); R05 Cough; F17.210 Nicotine dependence, cigarettes, uncomplicated
CPT/HCPCS: 71010; 80053; 82550; 82552; 83690; 83735; 84484; 85025; 93005; 96360; 99285; J7040

== ENCOUNTER 2016-07-04 17:43 | Emergency (ER) | payer SELFPAY ==
[~2016-07-04] VITALS: Ht 172.7 cm; Wt 90.0 kg
[2016-07-04 17:55] VITALS: BP 133/72; PULSE 104; RESP 20; TEMP 98; O2SAT 99
[2016-07-04] MEDS ORDERED: SODIUM CHLORIDE 0.9% FLUSH 10 ML FLUSH IVF PRN (18:15)
--- NOTE | 2016-07-04 18:17 | PD ---
HPI Chief Complaint: Chest Pain Time Seen by Provider: 18:15 Travel History International Travel<30 days: No Contact w/Intl Traveler<30days: No Traveled to known affect area: No History of Present Illness HPI 30-year-old male presents to the emergency department from [facility] for evaluation of chest pain patient states he snorted a Wellbutrin at [facility] he states that then he was given a clonidine and states he started with left-sided chest pain at that time. He states it was a 10/10 and now is improved to a 7/10. He has no radiation of the pain. Patient had a full chest pain workup done in the emergency department on June 25, 2016 which was negative. He also had a full chest pain workup on May 25, 2016 which was also negative. He has no chronic medical problems. He is at [facility] for drug abuse. He states that he was injecting IV drugs, but states he has not injected for 10 days since being a [facility]. No fevers or chills. He has no significant family history of sudden cardiac before the age of 40. Patient denies any recent surgery or travel. No leg edema. No hemoptysis. No history of DVT/PE. PFSH Past Medical History Diminished Hearing: No Social History Alcohol Use: Yes (OCC) Tobacco Use: Yes (1/2PPD) Substance Use: Yes (METH 05/24/16) Allergies-Medications (Allergen,Severity, Reaction): Coded Allergies: Benadryl (Verified Allergy, Severe, CAN'T REMEMBER, 05/25/16) Reglan (Verified Allergy, Severe, CAN'T REMEMBER, 05/25/16) Reported Meds & Prescriptions Reported Meds & Active Scripts Active No Active Prescriptions or Reported Medications Review of Systems Except as stated in HPI: all other systems reviewed are Neg Physical Exam Narrative GENERAL: Well-nourished, well-developed male patient, ambulatory. Afebrile. SKIN: Focused skin assessment warm/dry. HEAD: Normocephalic. Atraumatic. EYES: No scleral icterus. No injection or drainage. NECK: Supple, trachea midline. No JVD or lymphadenopathy. CARDIOVASCULAR: Regular rate and rhythm without murmurs, gallops, or rubs. RESPIRATORY: Breath sounds equal bilaterally. No accessory muscle use. Lungs sounds are clear to auscultation. GASTROINTESTINAL: Abdomen soft, non-tender, nondistended. MUSCULOSKELETAL: No cyanosis, or edema. BACK: Nontender without obvious deformity. No CVA tenderness. Data Data Last Documented VS Vital Signs Date Time Temp Pulse Resp B/P Pulse Ox O2 Delivery O2 Flow Rate FiO2 07/04/16 17:55 98.0 104 20 133/72 99 Orders Electrocardiogram (07/04/16 ) Electrocardiogram (07/04/16 18:15) Sodium Chloride 0.9% Flush (Ns Flush) (07/04/16 18:15) MDM Medical Decision Making Medical Screen Exam Complete: Yes Emergency Medical Condition: Yes Medical Record Reviewed: Yes Differential Diagnosis Polysubstance abuse versus atypical chest pain versus chest wall pain Narrative Course 30-year-old male presents to the emergency department for evaluation of chest pain that started after snorting a Wellbutrin and receiving clonidine. EKG shows sinus rhythm, heart rate 92, no acute ST changes. His chest pain is atypical. He had a normal chest pain workup done in the emergency department on June 25, 2016. He has no risk factors. Patient appears well on exam. I discussed the case with my attending physician, Dr. Hare, who agrees labs and imaging are not indicated at this time. The patient is stable to be released back to [facility]. Diagnosis Primary Impression: Atypical chest pain Referrals: Primary Care Physician call for appointment Patient Instructions: Chest Pain (ED), General Instructions Additional Instructions: Follow-up with your primary care physician. Return to the emergency department for any acute worsening of symptoms. Med/Other Pt SpecificInfo: No Change to Meds Scripts No Active Prescriptions or Reported Meds Disposition: 01 DISCHARGE HOME Condition: Stable Rochelle Dia Jul 04, 2016 18:17
[2016-07-04 18:23] VITALS: O2SAT 99
[2016-07-04] MEDS ORDERED: LORA-474 PO (18:48)
--- NOTE | 2016-07-05 22:59 | EKG ---
Date Performed: 07/04/2016 Time Performed: 18:03:00 PTAGE: 30 years EKG: Sinus rhythm NORMAL ECG NO PREVIOUS TRACING DOCTOR: Jhony Lazo Interpretating Date/Time 07/05/2016 22:58:33
== END 2016-07-04 19:09 | disposition home or self-care (01) ==
LOC: NEPC 17:43
DX: R07.89 Other chest pain (principal); F17.210 Nicotine dependence, cigarettes, uncomplicated
CPT/HCPCS: 93005

== ENCOUNTER 2016-08-23 19:57 | Emergency (ER) | payer SELFPAY ==
[~2016-08-23] VITALS: Ht 172.7 cm; Wt 90.0 kg
[~2016-08-23 19:57] MED LIST changes: -ALBUAER3 INH; +LORA-474 PO; -PRED50 PO; -VIST50CA PO; -Z.0.NO CURRENT MEDS; -ZITHTAB PO
[2016-08-23 20:08] VITALS: BP 140/72; PULSE 95; RESP 21; TEMP 98.9; O2SAT 100
[2016-08-23] MEDS ORDERED: ASPIRIN 81 MG CHEW TAB CHEW ONE (20:15)
[2016-08-23] MEDS ORDERED: SODIUM CHLORIDE 0.9% FLUSH 10 ML FLUSH IVF PRN (20:15)
[2016-08-23 20:21] VITALS: RESP 21; O2SAT 100
--- NOTE | 2016-08-23 20:24 | PD ---
HPI Chief Complaint: Cardiac Complaint Time Seen by Provider: 20:17 Travel History International Travel<30 days: No Contact w/Intl Traveler<30days: No Traveled to known affect area: No History of Present Illness HPI 31-year-old male presents to the emergency department for evaluation of chest tightness, bilateral arm paresthesias that started after he had a gout drink called C4. He states symptoms started shortly after drinking it. He does report history of anxiety. Patient reports history of IVDU, but states he has not used in 46 days after going to rehabilitation. Patient denies any fevers. Patient denies any abdominal pain. No nausea or vomiting. Patient is burping an exam room. Patient denies any family history of sudden cardiac for the age of 40. He denies any history of SC or cardiac issues. Patient states he is not currently on any medications. Patient states the pain is intermittent , waxing and waning. PFSH Past Medical History Medical History: Denies Significant Hx Diminished Hearing: No Immunizations Current: Yes Past Surgical History Surgical History: No Previous Surgery Social History Alcohol Use: No Tobacco Use: Yes (1/2PPD) Substance Use: No Allergies-Medications (Allergen,Severity, Reaction): Coded Allergies: Benadryl (Verified Allergy, Severe, CAN'T REMEMBER, 05/25/16) Reglan (Verified Allergy, Severe, CAN'T REMEMBER, 05/25/16) Reported Meds & Prescriptions Reported Meds & Active Scripts Active No Active Prescriptions or Reported Medications Review of Systems Except as stated in HPI: all other systems reviewed are Neg Physical Exam Narrative GENERAL: Well-nourished, well-developed male patient, afebrile. SKIN: Focused skin assessment warm/dry. HEAD: Normocephalic. Atraumatic. EYES: No scleral icterus. No injection or drainage. NECK: Supple, trachea midline. No JVD or lymphadenopathy. CARDIOVASCULAR: Regular rate and rhythm without murmurs, gallops, or rubs. Bilateral radial and pedal pulses 2+. RESPIRATORY: Breath sounds equal bilaterally. No accessory muscle use. Lungs sounds are clear to auscultation. GASTROINTESTINAL: Abdomen soft, non-tender, nondistended. MUSCULOSKELETAL: No cyanosis, or edema. Chest pain is reproducible with palpation. BACK: Nontender without obvious deformity. No CVA tenderness. Data Data Last Documented VS Vital Signs Date Time Temp Pulse Resp B/P Pulse Ox O2 Delivery O2 Flow Rate FiO2 08/23/16 20:21 21 100 Room Air 08/23/16 20:21 2 08/23/16 20:10 95 08/23/16 20:08 98.9 140/72 Orders Electrocardiogram (08/23/16 20:15) Basic Metabolic Panel (Bmp) (08/23/16 20:15) Ckmb (Isoenzyme) Profile (08/23/16 20:15) Complete Blood Count With Diff (08/23/16 20:15) Magnesium (Mg) (08/23/16 20:15) Troponin I (08/23/16 20:15) Chest, Single Ap (08/23/16 20:15) Ecg Monitoring (08/23/16 20:15) Bilateral Bp Monitoring (08/23/16 20:15) Iv Access Insert/Monitor (08/23/16 20:15) Oximetry (08/23/16 20:15) Oxygen Administration (08/23/16 20:15) Sodium Chloride 0.9% Flush (Ns Flush) (08/23/16 20:15) Aspirin Chew (Aspirin Chew) (08/23/16 20:15) CKMB (08/23/16 20:15) CKMB% (08/23/16 20:15) Potassium Chloride (Kcl) (08/23/16 21:45) Labs Laboratory Tests Test 08/23/16 20:15 White Blood Count 6.7 TH/MM3 Red Blood Count 5.66 MIL/MM3 Hemoglobin 16.1 GM/DL Hematocrit 45.4 % Mean Corpuscular Volume 80.2 FL Mean Corpuscular Hemoglobin 28.5 PG Mean Corpuscular Hemoglobin 35.5 % Concent Red Cell Distribution Width 14.0 % Platelet Count 225 TH/MM3 Mean Platelet Volume 8.2 FL Neutrophils (%) (Auto) 58.0 % Lymphocytes (%) (Auto) 27.5 % Monocytes (%) (Auto) 11.5 % Eosinophils (%) (Auto) 2.5 % Basophils (%) (Auto) 0.5 % Neutrophils # (Auto) 3.9 TH/MM3 Lymphocytes # (Auto) 1.8 TH/MM3 Monocytes # (Auto) 0.8 TH/MM3 Eosinophils # (Auto) 0.2 TH/MM3 Basophils # (Auto) 0.0 TH/MM3 CBC Comment DIFF FINAL Differential Comment Sodium Level 140 MEQ/L Potassium Level 3.2 MEQ/L Chloride Level 105 MEQ/L Carbon Dioxide Level 22.5 MEQ/L Anion Gap 13 MEQ/L Blood Urea Nitrogen 11 MG/DL Creatinine 0.98 MG/DL Estimat Glomerular Filtration 90 ML/MIN Rate Random Glucose 106 MG/DL Calcium Level 9.2 MG/DL Magnesium Level 1.9 MG/DL Total Creatine Kinase 242 U/L Creatine Kinase MB 2.6 NG/ML Troponin I LESS THAN 0.02 NG/ML MDM Medical Decision Making Medical Screen Exam Complete: Yes Emergency Medical Condition: Yes Medical Record Reviewed: Yes Interpretation(s) chest x-ray - CONCLUSION: No acute cardiopulmonary abnormality is identified. Differential Diagnosis Anxiety versus chest wall pain versus ACS Narrative Course 31-year-old male presents to the emergency department for evaluation of chest tightness/pain that started after drinking a workout drink called C4. EKG shows sinus rhythm, heart rate 97, no acute ST changes. CBC, BMP, CK, troponin , magnesium, chest x-ray are ordered and pending. CBC is unremarkable. BMP shows hypokalemia at 3.2, otherwise unremarkable. CK is 242. Troponin is less than 0.02. Magnesium is 1.9. Chest x-ray shows no acute cardiopulmonary abnormality. Upon reexamination, patient states all symptoms have resolved and he feels well. He would like to be discharged home. Patient is instructed to follow-up with primary care physician. He verbalizes agreement. He is instructed to quit using his pre-workout drinks. He verbalizes agreement to this. Patient is to return for any acute worsening of symptoms. Patient verbalizes agreement and understanding. Diagnosis Primary Impression: Atypical chest pain Additional Impression: Anxiety Referrals: Primary Care Physician call for appointment Patient Instructions: Chest Pain (ED), General Instructions Additional Instructions: Follow-up with your primary care physician. Return to the emergency department for any acute worsening of symptoms. Med/Other Pt SpecificInfo: No Change to Meds Scripts No Active Prescriptions or Reported Meds Disposition: 01 DISCHARGE HOME Condition: Stable Rochelle Dia [place] Aug 23, 2016 20:23
--- NOTE | 2016-08-23 20:33 | RADRPT ---
EXAM DATE/TIME: 08/23/2016 20:28 [facility] COMPARISON: CHEST SINGLE AP, June 26, 2016, 1:23. INDICATIONS : Chest pain. MEDICAL HISTORY : None. SURGICAL HISTORY : None. ENCOUNTER: Initial ACUITY: 1 day PAIN SCORE: 8/10 LOCATION: Bilateral chest FINDINGS: Portable AP view of the chest demonstrates a normal-sized cardiac silhouette. No effusion, consolidat ion, or pneumothorax is visualized. The bones and soft tissues demonstrate no acute abnormality. CONCLUSION: No acute cardiopulmonary abnormality is identified. Kana Miranda MD on August 23, 2016 at 20:31 Board Certified Radiologist. This report was verified electronically.
[2016-08-23 20:56] LABS: AUTOMATED NEUTROPHIL # 3.9 TH/MM3 (1.8-7.7); BASOPHIL % 0.5 % (0.0-2.0); EOSINOPHIL # 0.2 TH/MM3 (0-0.4); EOSINOPHIL % 2.5 % (0.0-4.0); HEMATOCRIT 45.4 % (39.0-51.0); HEMO FLAGS DIFF FINAL; LYMPH % 27.5 % (9.0-44.0); LYMPHOCYTE # 1.8 TH/MM3 (1.0-4.8); MEAN CELL VOLUME 80.2 FL (80.0-100.0); MEAN CORPUSCULAR HEMOGLOBIN 28.5 PG (27.0-34.0); MEAN CORPUSCULAR HGB CONC 35.5 % (32.0-36.0); MONO % 11.5 % (0.0-8.0); PLATELET COUNT 225 TH/MM3 (150-450); RED BLOOD COUNT 5.66 MIL/MM3 (4.50-5.90); WHITE BLOOD COUNT 6.7 TH/MM3 (4.0-11.0)
[2016-08-23 21:11] LABS: CREATINE KINASE 242 U/L (39-308)
[2016-08-23 21:21] LABS: ANION GAP 13 MEQ/L (5-15); BICARBONATE 22.5 MEQ/L (21.0-32.0); BLOOD UREA NITROGEN 11 MG/DL (7-18); CHLORIDE 105 MEQ/L (98-107); GLOMERULAR FILTRATION RATE 90 ML/MIN (>89); MAGNESIUM 1.9 MG/DL (1.5-2.5); POTASSIUM 3.2 MEQ/L (3.5-5.1); SODIUM (NA) 140 MEQ/L (136-145)
[2016-08-23 21:24] LABS: CKMB 2.6 NG/ML (0.5-3.6)
[2016-08-23] MEDS ORDERED: POTASSIUM CHLORIDE 20 MEQ CONTROLLED RELEASE TAB PO ONE (21:45)
--- NOTE | 2016-08-24 16:49 | EKG ---
Date Performed: 08/23/2016 Time Performed: 20:11:07 PTAGE: 31 years EKG: Sinus rhythm Since previous tracing, no significant change noted NORMAL ECG PREVIOUS TRACING : 07/04/2016 18.03 DOCTOR: Nivia Govea Interpretating Date/Time 08/24/2016 17:25:53
== END 2016-08-23 22:33 | disposition home or self-care (01) ==
LOC: NEPE 19:57
DX: R07.89 Other chest pain (principal); F41.9 Anxiety disorder, unspecified; R20.9 Unspecified disturbances of skin sensation; F17.210 Nicotine dependence, cigarettes, uncomplicated; E87.6 Hypokalemia
CPT/HCPCS: 71010; 80048; 82550; 82552; 83735; 84484; 85025; 93005; 99285

== ENCOUNTER 2017-08-10 01:33 | Emergency (ER) | payer SELFPAY ==
[~2017-08-10] VITALS: Ht 172.7 cm; Wt 90.0 kg
[2017-08-10 01:57] VITALS: BP 147/77; PULSE 84; RESP 18; TEMP 97.7; O2SAT 99
[2017-08-10] MEDS ORDERED: NITROGLYCERIN 2% OINT 1 GM PACKET TOP ONE (02:30)
[2017-08-10] MEDS ORDERED: ALUMINUM/MAGNESIUM/SIMETH 30 ML CUP PO ONE (02:30)
[2017-08-10] MEDS ORDERED: ASPIRIN 81 MG CHEW TAB PO ONE (02:30)
[2017-08-10] MEDS ORDERED: SODIUM CHLORID 0.9% 500 ML INJ 500 ML IV ONE (02:30)
[2017-08-10] MEDS ORDERED: SODIUM CHLORIDE 0.9% FLUSH 10 ML FLUSH IVF PRN (02:30)
[2017-08-10] MEDS ORDERED: LIDOCAINE VISCOUS 2% SOLN 15 ML UDC PO ONE (02:30)
--- NOTE | 2017-08-10 02:32 | PD ---
HPI Chief Complaint: Chest Pain Time Seen by Provider: 01:52 Travel History International Travel<30 days: No Contact w/Intl Traveler<30days: No Traveled to known affect area: No History of Present Illness HPI The patient is a 31-year-old male who presents to the emergency department for chest pain. The patient states he developed chest pain approximately 2-3 hours prior to arrival. The chest pain initially was left- sided, states the pain is resolved, however, he continues to have pressure on the affected side. He denies any shortness of breath, nausea, vomiting, or diaphoresis. However, he does note he has been "belching "a lot lately and occasionally has discomfort in the epigastric area. He denies any known history of a hiatal hernia. He denies any known history of coronary artery disease. He does have a history of tobacco use and a significant family medical history for heart disease with his mother and father in their 50s and 60s respectively from heart related problems. He denies any known history of hyperlipidemia, diabetes, or current drug use. 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 Patient states he was lying down earlier tonight when the pain started, he denies any recent exertional symptoms. There is no radiation of the pain. Symptoms are moderate. The patient denies any history of pulmonary embolism or DVT. He denies any recent hospitalizations or surgery. 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 PFSH Past Medical History Medical History: Denies Significant Hx Diminished Hearing: No Immunizations Current: Yes Tetanus Vaccination: Unknown Influenza Vaccination: No Past Surgical History Surgical History: No Previous Surgery Social History Alcohol Use: No Tobacco Use: Yes (1/2PPD) Substance Use: No Allergies-Medications (Allergen,Severity, Reaction): Coded Allergies: diphenhydramine (Unverified Allergy, Severe, CAN'T REMEMBER, 08/10/17) metoclopramide (Unverified Allergy, Severe, CAN'T REMEMBER, 08/10/17) Reported Meds & Prescriptions Reported Meds & Active Scripts Active No Active Prescriptions or Reported Medications Review of Systems Except as stated in HPI: all other systems reviewed are Neg General / Constitutional: No: Fever HENT: No: Lightheadedness Cardiovascular: Positive: Chest Pain or Discomfort Respiratory: No: Shortness of Breath Gastrointestinal: Positive: Other (Belching), No: Nausea, Vomiting, Abdominal Pain Musculoskeletal: No: Edema Physical Exam Narrative GENERAL: Awake, alert, slightly anxious 31-year-old male who appears his stated age and is in no acute respiratory distress. SKIN: Focused skin assessment warm/dry. HEAD: Atraumatic. Normocephalic. EYES: Pupils equal and round. No scleral icterus. No injection or drainage. ENT: No nasal bleeding or discharge. Mucous membranes pink and moist. NECK: Trachea midline. No JVD. CARDIOVASCULAR: Regular rate and rhythm. No murmur appreciated. Palpation of the left lateral chest wall produces pain, but does not reproduce the patient's pain. RESPIRATORY: No accessory muscle use. Clear to auscultation. Breath sounds equal bilaterally. GASTROINTESTINAL: Abdomen soft, non-tender, nondistended. No epigastric tenderness. MUSCULOSKELETAL: No obvious deformities. No clubbing. No cyanosis. No edema. NEUROLOGICAL: Awake and alert. No obvious cranial nerve deficits. Motor grossly within normal limits. Normal speech. PSYCHIATRIC: Appropriate mood and affect; insight and judgment normal. Data Data Last Documented VS Vital Signs Date Time Temp Pulse Resp B/P (MAP) Pulse Ox O2 Delivery O2 Flow Rate FiO2 08/10/17 06:19 81 16 124/76 (92) 100 Room Air 08/10/17 01:57 97.7 Orders Orders Ckmb (Isoenzyme) Profile (08/10/17 02:26) Complete Blood Count With Diff (08/10/17 02:26) Comprehensive Metabolic Panel (08/10/17 02:26) Magnesium (Mg) (08/10/17 02:26) Prothrombin Time / Inr (Pt) (08/10/17 02:26) Act Partial Throm Time (Ptt) (08/10/17 02:26) Troponin I (08/10/17 02:26) Lipase (08/10/17 02:26) Ecg Monitoring (08/10/17 02:26) Bilateral Bp Monitoring (08/10/17 02:26) Iv Access Insert/Monitor (08/10/17 02:26) Oximetry (08/10/17 02:26) Oxygen Administration (08/10/17 02:26) Aspirin Chew (Aspirin Chew) (08/10/17 02:30) Nitroglycerin 2% Oint (Nitroglycerin 2% (08/10/17 02:30) Sodium Chloride 0.9% Flush (Ns Flush) (08/10/17 02:30) Sodium Chlorid 0.9% 500 Ml Inj (Ns 500 M (08/10/17 02:30) Chest, Pa & Lat (08/10/17 02:26) Al-Mag Hy-Si 40-40-4 Mg/Ml Liq (Mag-Al P (08/10/17 02:30) Lidocaine 2% Viscous (Xylocaine 2% Visco (08/10/17 02:30) CKMB (08/10/17 02:35) CKMB% (08/10/17 02:35) Troponin I (08/10/17 05:30) Labs Laboratory Tests Test 08/10/17 02:35 08/10/17 05:30 White Blood Count 8.0 TH/MM3 Red Blood Count 5.49 MIL/MM3 Hemoglobin 16.2 GM/DL Hematocrit 46.7 % Mean Corpuscular Volume 85.1 FL Mean Corpuscular Hemoglobin 29.4 PG Mean Corpuscular Hemoglobin Concent 34.6 % Red Cell Distribution Width 13.1 % Platelet Count 217 TH/MM3 Mean Platelet Volume 8.0 FL Neutrophils (%) (Auto) 39.4 % Lymphocytes (%) (Auto) 48.5 % Monocytes (%) (Auto) 9.5 % Eosinophils (%) (Auto) 2.1 % Basophils (%) (Auto) 0.5 % Neutrophils # (Auto) 3.2 TH/MM3 Lymphocytes # (Auto) 3.9 TH/MM3 Monocytes # (Auto) 0.8 TH/MM3 Eosinophils # (Auto) 0.2 TH/MM3 Basophils # (Auto) 0.0 TH/MM3 CBC Comment DIFF FINAL Differential Comment Prothrombin Time 10.1 SEC Prothromb Time International Ratio 1.0 RATIO Activated Partial Thromboplast Time 26.0 SEC Blood Urea Nitrogen 17 MG/DL Creatinine 1.18 MG/DL Random Glucose 77 MG/DL Total Protein 7.2 GM/DL Albumin 4.0 GM/DL Calcium Level 8.7 MG/DL Magnesium Level 2.3 MG/DL Alkaline Phosphatase 58 U/L Aspartate Amino Transf (AST/SGOT) 17 U/L Alanine Aminotransferase (ALT/SGPT) 23 U/L Total Bilirubin 0.9 MG/DL Sodium Level 141 MEQ/L Potassium Level 3.6 MEQ/L Chloride Level 105 MEQ/L Carbon Dioxide Level 27.8 MEQ/L Anion Gap 8 MEQ/L Estimat Glomerular Filtration Rate 72 ML/MIN Total Creatine Kinase 205 U/L Creatine Kinase MB 1.8 NG/ML Troponin I LESS THAN 0.02 NG/ML LESS THAN 0.02 NG/ML Lipase 367 U/L MDM Medical Decision Making Medical Screen Exam Complete: Yes Emergency Medical Condition: Yes Medical Record Reviewed: Yes Interpretation(s) EKG reveals normal sinus rhythm with a rate 84. No ischemic changes or ectopy noted. Last Impressions Chest X-Ray 08/10/176 Signed Impressions: CONCLUSION: No acute intrathoracic disease. Stable examination. Laboratory Tests Test 08/10/17 02:35 08/10/17 05:30 White Blood Count 8.0 TH/MM3 Red Blood Count 5.49 MIL/MM3 Hemoglobin 16.2 GM/DL Hematocrit 46.7 % Mean Corpuscular Volume 85.1 FL Mean Corpuscular Hemoglobin 29.4 PG Mean Corpuscular Hemoglobin Concent 34.6 % Red Cell Distribution Width 13.1 % Platelet Count 217 TH/MM3 Mean Platelet Volume 8.0 FL Neutrophils (%) (Auto) 39.4 % Lymphocytes (%) (Auto) 48.5 % Monocytes (%) (Auto) 9.5 % Eosinophils (%) (Auto) 2.1 % Basophils (%) (Auto) 0.5 % Neutrophils # (Auto) 3.2 TH/MM3 Lymphocytes # (Auto) 3.9 TH/MM3 Monocytes # (Auto) 0.8 TH/MM3 Eosinophils # (Auto) 0.2 TH/MM3 Basophils # (Auto) 0.0 TH/MM3 CBC Comment DIFF FINAL Differential Comment Prothrombin Time 10.1 SEC Prothromb Time International Ratio 1.0 RATIO Activated Partial Thromboplast Time 26.0 SEC Blood Urea Nitrogen 17 MG/DL Creatinine 1.18 MG/DL Random Glucose 77 MG/DL Total Protein 7.2 GM/DL Albumin 4.0 GM/DL Calcium Level 8.7 MG/DL Magnesium Level 2.3 MG/DL Alkaline Phosphatase 58 U/L Aspartate Amino Transf (AST/SGOT) 17 U/L Alanine Aminotransferase (ALT/SGPT) 23 U/L Total Bilirubin 0.9 MG/DL Sodium Level 141 MEQ/L Potassium Level 3.6 MEQ/L Chloride Level 105 MEQ/L Carbon Dioxide Level 27.8 MEQ/L Anion Gap 8 MEQ/L Estimat Glomerular Filtration Rate 72 ML/MIN Total Creatine Kinase 205 U/L Creatine Kinase MB 1.8 NG/ML Troponin I LESS THAN 0.02 NG/ML LESS THAN 0.02 NG/ML Lipase 367 U/L Differential Diagnosis Differential diagnosis includes pericarditis, myocarditis, ACS, STEMI, GERD, esophageal spasm, hiatal hernia, pancreatitis, pleural effusion, pneumonia, pulmonary embolism, musculoskeletal pain. Narrative Course IV was established, labs are drawn and sent, and the patient was placed on cardiac telemetry monitoring and continuous pulse oximetry monitoring. EKG was ordered and interpreted. Chest x-ray was obtained. The patient was administered aspirin 162 mg orally with a GI cocktail. Chest x-ray was unremarkable. The patient's initial troponin was less than 0.02. The patient was reevaluated at 3:30 AM, his pain has significantly improved after GI cocktail. The patient may have GERD/esophagitis, however, does have risk factors with smoking and family history with atypical symptoms, therefore, second troponin was ordered for 5:30 AM. Diagnosis Primary Impression: Atypical chest pain Patient Instructions: General Instructions Additional Instructions: Zantac as directed twice a day. Follow-up with a primary physician. Work excuse for today. Return if symptoms worsen or progress. Med/Other Pt SpecificInfo: Prescription(s) given Scripts Ranitidine (Zantac 150 Maximum Strength) 150 Mg Tab 150 MG PO BID, #60 TAB Prov: Noah Tabares MD 08/10/17 Disposition: 01 DISCHARGE HOME Condition: Stable Noah Tabares MD Aug 10, 2017 02:32
[2017-08-10 02:50] LABS: AUTOMATED NEUTROPHIL # 3.2 TH/MM3 (1.8-7.7); BASOPHIL % 0.5 % (0.0-2.0); EOSINOPHIL # 0.2 TH/MM3 (0-0.4); EOSINOPHIL % 2.1 % (0.0-4.0); HEMATOCRIT 46.7 % (39.0-51.0); HEMOGLOBIN 16.2 GM/DL (13.0-17.0); LYMPH % 48.5 % (9.0-44.0); LYMPHOCYTE # 3.9 TH/MM3 (1.0-4.8); MEAN CELL VOLUME 85.1 FL (80.0-100.0); MEAN CORPUSCULAR HEMOGLOBIN 29.4 PG (27.0-34.0); MEAN CORPUSCULAR HGB CONC 34.6 % (32.0-36.0); MONO % 9.5 % (0.0-8.0); MONOCYTE # 0.8 TH/MM3 (0-0.9); NEUT % 39.4 % (16.0-70.0); PLATELET COUNT 217 TH/MM3 (150-450); RED BLOOD COUNT 5.49 MIL/MM3 (4.50-5.90); RED CELL DISTRIBUTION WIDTH 13.1 % (11.6-17.2)
--- NOTE | 2017-08-10 02:53 | RADRPT ---
EXAM DATE: 08/10/2017 2:48 AM EDT AGE/SEX: 31 years / Male INDICATIONS: Chest pain. Anterior chest wall trouble breathing. CLINICAL DATA: This is the patient's initial encounter. Patient reports that signs and symptoms have been present for 1 day and indicates a pain score of 3/10. MEDICAL/SURGICAL HISTORY: None. None. COMPARISON: [facility] [place] & [place], 04/01/2012. . FINDINGS: PA and lateral views of the chest demonstrate the lungs to be symmetrically aerated without evidence of mass, infiltrate or effusion. The cardiomediastinal contours are unremarkable. Osseous structures are intact. CONCLUSION: No acute intrathoracic disease. Stable examination. Electronically signed by: Raul Manzanares MD 08/10/2017 2:52 AM EDT
[2017-08-10 03:09] LABS: PROTHROMBIN TIME - PATIENT 10.1 SEC (9.8-11.6)
[2017-08-10 03:10] LABS: ALKALINE PHOSPHATASE 58 U/L (45-117); TOTAL BILIRUBIN ADULT 0.9 MG/DL (0.2-1.0); TOTAL PROTEIN 7.2 GM/DL (6.4-8.2); TROPONIN I LESS THAN 0.02 NG/ML (0.02-0.05)
[2017-08-10 03:26] LABS: ALT (GPT) 23 U/L (12-78); AST (GOT) 17 U/L (15-37); BICARBONATE 27.8 MEQ/L (21.0-32.0); BLOOD UREA NITROGEN 17 MG/DL (7-18); CALCIUM 8.7 MG/DL (8.5-10.1); CHLORIDE 105 MEQ/L (98-107); CREATININE 1.18 MG/DL (0.60-1.30); GLOMERULAR FILTRATION RATE 72 ML/MIN (>89); GLUCOSE,RANDOM 77 MG/DL (74-106); MAGNESIUM 2.3 MG/DL (1.5-2.5); SODIUM (NA) 141 MEQ/L (136-145)
[2017-08-10 06:19] VITALS: BP 124/76; PULSE 81; RESP 16; O2SAT 100
[2017-08-10] MEDS ORDERED: ZANTTAB PO (06:30)
--- NOTE | 2017-08-10 19:01 | EKG ---
Date Performed: 08/10/2017 Time Performed: 00:50:39 PTAGE: 31 years EKG: Sinus rhythm NORMAL ECG PREVIOUS TRACING : 08/23/2016 20.11 Since the previous tracing, no significant change noted DOCTOR: Pat Mendez Interpretating Date/Time 08/10/2017 19:00:02
== END 2017-08-10 06:53 | disposition home or self-care (01) ==
LOC: NEPE 01:33
DX: R07.89 Other chest pain (principal); F17.200 Nicotine dependence, unspecified, uncomplicated
CPT/HCPCS: 71046; 80053; 82550; 82552; 83690; 83735; 84484; 85025; 85610; 85730; 93005; 96360; 99285; J7040

== ENCOUNTER 2017-12-02 21:29 | Inpatient (IN) ==
[2017-12-02] MEDS ORDERED: Succinylcholine Inj 100 MG/5 ML Syringe IV.PUSH ONE (21:53)
[2017-12-02] MEDS ORDERED: Etomidate Inj 20 MG/10 ML Ampul IV.PUSH ONE (21:53)
--- NOTE | 2017-12-02 21:53 | ED ---
HPI General Chief Complaint: Overdose Stated Complaint: Possible OD Time Seen by Provider: 12/02/17 21:36 Source: patient and EMS Mode of arrival: EMS Limitations: no limitations History of Present Illness 32-year-old male complains of chest pain shortness of breath. Patient states that he has productive cough for the past 2 weeks. Patient was seen in emergency room 10 days ago and given prescription for Z-Jose. Patient states that he took a Z-Jose as directed. Patient states that he has persistent cough despite Z-Jose.-year-old male patient denies any fever chills. Patient states that he shot up either heroin or Dilaudid this afternoon. Patient was found unresponsive. EMS was called. Patient was given Narcan 0.4 mg IV. Patient woke up. Patient still complaining of severe shortness of breath. Patient states that he has fever this evening. Patient denies any headache. Patient denies any neck pain. Patient complains of heaviness anterior chest wall. Patient denies abdominal pain. Patient denies nausea vomiting diarrhea. Patient denies any focal weakness or numbness of the extremity. Patient was given nonrebreathing mask on the way to the ED. Complaint: shortness of breath, cough and chest pain Onset (ago): hour(s) Context: recent illness Severity: severe Consistency/Duration: constant Relieving factors: nothing Exacerbating factors: nothing Associated symptoms: chest pain Treatment prior to arrival: oxygen Related Data Previous Rx's Medication Instructions Recorded albuterol sulfate 1 inh INHALATION Q6H PRN #6.7 g 09/11/17 Allergies Allergy/AdvReac Type Severity Reaction Status Date / Time diphenhydramine Allergy Severe Anxiety Verified 11/22/17 21:48 metoclopramide Allergy Severe Anxiety Verified 11/22/17 21:48 Review of Systems ROS: all other systems reviewed are negative [facility] Medical History Medical History GERD (gastroesophageal reflux disease) (Acute) Surgical History Surgical History No history of previous surgery (Acute) Social History Social History Substance History: Past History Second Hand Smoke Exposure: Yes Smoking Status: Current every day smoker Tobacco Type: Cigarettes How Often Do You Have a Drink Containing Alcohol: Unable to Obtain Recent Travel in [facility] within the Last 8 Weeks: No Immunization History Tetanus Immunization: Unsure Exam Narrative Exam Narrative: GENERAL: Well-nourished, well-developed patient. SKIN: Focused skin assessment warm/dry. HEAD: Normocephalic. EYES: No scleral icterus. No injection or drainage. NECK: Supple, trachea midline. No JVD or lymphadenopathy. CARDIOVASCULAR: Tachycardia rate and rhythm without murmurs, gallops, or rubs. RESPIRATORY: Breath sounds equal bilaterally. No accessory muscle use. Diffuse rhonchi bibasilar. GASTROINTESTINAL: Abdomen soft, non-tender, nondistended. MUSCULOSKELETAL: No cyanosis, or edema. BACK: Nontender without obvious deformity. No CVA tenderness. Neurologic exam: Patient is anxious. Patient moves all extremity well. No obvious focal neurologic deficit. Procedures Intubation Time Out Performed: Yes Sedative: etomidate Mg Given: 20 Paralytic: succinylcholine Mg Given: 100 Laryngoscope: fiber optic video scope Assist Device Used: fiber optic device ET Tube Size: 7.5 ET Tube Uncuffed: Yes Tube Secured Depth (cm): 23 Tube Secured Location: lips Tube Placement Confirmation: visualized tube passing through cords, equal breath sounds bilaterally, no breath sounds over epigastrium and confirmation by capnometry Patient Tolerated Procedure: well Intubation Complications: none Course Initial Documented Vital Signs Temperature 100.3 F H 12/02/17 21:31 Pulse Rate 151 H 12/02/17 21:31 Respiratory Rate 26 H 12/02/17 21:31 Blood Pressure 158/74 H 12/02/17 21:31 Pulse Oximetry 98 12/02/17 21:31 Last Documented Vital Signs Temperature 100.5 F H 12/03/17 06:00 Pulse Rate 105 H 12/03/17 11:46 Respiratory Rate 15 12/03/17 11:46 Blood Pressure 102/73 12/03/17 06:00 Pulse Oximetry 95 12/03/17 07:27 Critical Care Time Critical Care Time: Yes Total Critical Care Time: 60 Attestation: Aggregate critical care time was 60 minutes. Time to perform other separately billable procedures was not included in the critical care time. My time did not include minutes spent treating any other patients simultaneously or on activities that did not directly contribute to the patient's treatment. The services I provided to this patient were to treat and/or prevent clinically significant deterioration that could result in: I provided critical care services requiring my management, as noted below: Chart data review, documentation time, medication orders and management, vital sign assessments/reviewing monitor data, ordering and reviewing lab tests, ordering and interpreting/reviewing x-rays and diagnostic studies, care of the patient and discussion of the patient with the admitting physicians. Medical Decision Making MDM Narrative Medical Screen Exam Complete: Yes Emergency Medical Condition: Yes Lab Data Lab results reviewed: Yes I reviewed the patient's lab results. Result diagrams: 12/02/17 21:40 12/02/17 21:40 Lab Results 12/02/17 12/02/17 12/02/17 Range/Units 21:40 21:40 21:40 WBC 14.5 H (4.0-11.0) th/mm3 RBC 5.79 (4.50-5.90) mil/mm3 Hgb 16.8 (13.0-17.0) gm/dL Hct 49.6 (39.0-51.0) % MCV 85.7 (80.0-100.0) fL MCH 29.0 (27.0-34.0) pg MCHC 33.9 (32.0-36.0) % RDW 13.3 (11.6-17.2) % Plt Count 302 (150-450) th/mm3 MPV 7.8 (7.0-11.0) fL Neut % (Auto) 71.2 H (16.0-70.0) % Lymph % (Auto) 17.9 (9.0-44.0) % [place] % (Auto) 8.9 H (0.0-8.0) % Eos % (Auto) 1.4 (0.0-4.0) % Baso % (Auto) 0.6 (0.0-2.0) % Neut # (Auto) 10.3 H (1.8-7.7) th/mm3 Lymph # (Auto) 2.6 (1.0-4.8) th/mm3 [place] # (Auto) 1.3 H (0.0-0.9) th/mm3 Eos # (Auto) 0.2 (0.0-0.4) th/mm3 Baso # (Auto) 0.1 (0.0-0.2) th/mm3 WBC Differential . Differential Comment Auto diff final PT 11.1 (9.8-11.6) sec INR 1.1 Ratio APTT 23.5 L (24.3-30.1) sec D-Dimer Quant (PE/DVT) 4.14 H (0.00-0.50) mg/L FEU Puncture Site Patient Temperature O2 Saturation (90-100) % ABG pH (7.380-7.420) ABG pCO2 (38-42) mmHg ABG pO2 (61-120) mmHg ABG HCO3 (22-26) mmol/L ABG O2 Content (12.0-20.0) Vol % ABG Base Excess (-2-2) mmol/L ABG Methemoglobin (0-2) % Nish Test Hemoglobin (12.0-16.0) G/DL Carboxyhemoglobin (0-4) % O2 Delivery Device Vent Setting Inspired O2 % Critical Value Sodium 141 (136-145) meq/L Potassium 3.4 L (3.5-5.1) meq/L Chloride 102 (98-107) meq/L Carbon Dioxide 27.9 (21.0-32.0) meq/L Anion Gap 11 (5-15) meq/L BUN 18 (7-18) mg/dL Creatinine 1.40 H (0.60-1.30) mg/dL Estimated GFR 59 L (>89) mL/min POC Glucose (68-110) mg/dl Random Glucose 217 H (74-106) mg/dL Lactic Acid (0.4-2.0) mmol/L Calcium 8.2 L (8.5-10.1) mg/dL Total Bilirubin 1.6 H (0.2-1.0) mg/dL AST 15 (15-37) U/L ALT 20 (12-78) U/L Alkaline Phosphatase 60 (45-117) U/L Total Creatine Kinase 190 (39-308) U/L CK-MB (CK-2) 1.4 (0.5-3.6) ng/mL Troponin I Less than 0.02 L (0.02-0.05) ng/mL Total Protein 7.0 (6.4-8.2) g/dL Albumin 3.7 (3.4-5.0) g/dL Urine Color (Yellw/Straw) Urine Clarity (Clear) Urine pH (5.0-8.5) Ur Specific [place] (1.002-1.035) Urine Protein (Neg-Trace) mg/dL Urine Glucose (UA) (Negative) mg/dL Urine Ketones (Negative) mg/dL Urine Occult Blood (Negative) Urine Nitrate (Negative) Urine Bilirubin (Negative) Urine Urobilinogen (Less than 2) mg/dL Ur Leukocyte Esterase (Negative) Urine RBC (0-3) /hpf Urine WBC (0-5) /hpf Calcium Oxalate Crystal (None) /hpf Hyaline Casts (0-3) /lpf Granular Casts (None) /lpf Urine Mucus (Occasional) /lpf Micro UA Comment Ur Microscopic Review Urine Culture Comments Nasal Screen MRSA (PCR) (Negative) Urine Opiates Screen (Neg) Ur Barbiturates Screen (Neg) Ur Amphetamines Screen (Neg) U Benzodiazepines Scrn (Neg) Urine Cocaine Screen (Neg) U Cannabinoids Screen (Neg) 12/02/17 12/02/17 12/02/17 Range/Units 21:40 22:45 22:50 WBC (4.0-11.0) th/mm3 RBC (4.50-5.90) mil/mm3 Hgb (13.0-17.0) gm/dL Hct (39.0-51.0) % MCV (80.0-100.0) fL MCH (27.0-34.0) pg MCHC (32.0-36.0) % RDW (11.6-17.2) % Plt Count (150-450) th/mm3 MPV (7.0-11.0) fL Neut % (Auto) (16.0-70.0) % Lymph % (Auto) (9.0-44.0) % [place] % (Auto) (0.0-8.0) % Eos % (Auto) (0.0-4.0) % Baso % (Auto) (0.0-2.0) % Neut # (Auto) (1.8-7.7) th/mm3 Lymph # (Auto) (1.0-4.8) th/mm3 [place] # (Auto) (0.0-0.9) th/mm3 Eos # (Auto) (0.0-0.4) th/mm3 Baso # (Auto) (0.0-0.2) th/mm3 WBC Differential Differential Comment PT (9.8-11.6) sec INR Ratio APTT (24.3-30.1) sec D-Dimer Quant (PE/DVT) (0.00-0.50) mg/L FEU Puncture Site Right radial Patient Temperature 98.6 O2 Saturation 96 (90-100) % ABG pH 7.33 L (7.380-7.420) ABG pCO2 46 H (38-42) mmHg ABG pO2 115 (61-120) mmHg ABG HCO3 24 (22-26) mmol/L ABG O2 Content 20.8 H (12.0-20.0) Vol % ABG Base Excess -1.4 (-2-2) mmol/L ABG Methemoglobin 0.7 (0-2) % Nish Test Present Hemoglobin 15.3 (12.0-16.0) G/DL Carboxyhemoglobin 1.5 (0-4) % O2 Delivery Device Ventilator Vent Setting Vac/16/600/peep 5 Inspired O2 100 % Critical Value No Sodium (136-145) meq/L Potassium (3.5-5.1) meq/L Chloride (98-107) meq/L Carbon Dioxide (21.0-32.0) meq/L Anion Gap (5-15) meq/L BUN (7-18) mg/dL Creatinine (0.60-1.30) mg/dL Estimated GFR (>89) mL/min POC Glucose (68-110) mg/dl Random Glucose (74-106) mg/dL Lactic Acid 1.6 (0.4-2.0) mmol/L Calcium (8.5-10.1) mg/dL Total Bilirubin (0.2-1.0) mg/dL AST (15-37) U/L ALT (12-78) U/L Alkaline Phosphatase (45-117) U/L Total Creatine Kinase (39-308) U/L CK-MB (CK-2) (0.5-3.6) ng/mL Troponin I (0.02-0.05) ng/mL Total Protein (6.4-8.2) g/dL Albumin (3.4-5.0) g/dL Urine Color (Yellw/Straw) Urine Clarity (Clear) Urine pH (5.0-8.5) Ur Specific [place] (1.002-1.035) Urine Protein (Neg-Trace) mg/dL Urine Glucose (UA) (Negative) mg/dL Urine Ketones (Negative) mg/dL Urine Occult Blood (Negative) Urine Nitrate (Negative) Urine Bilirubin (Negative) Urine Urobilinogen (Less than 2) mg/dL Ur Leukocyte Esterase (Negative) Urine RBC (0-3) /hpf Urine WBC (0-5) /hpf Calcium Oxalate Crystal (None) /hpf Hyaline Casts (0-3) /lpf Granular Casts (None) /lpf Urine Mucus (Occasional) /lpf Micro UA Comment Ur Microscopic Review Urine Culture Comments Nasal Screen MRSA (PCR) (Negative) Urine Opiates Screen Pos H (Neg) Ur Barbiturates Screen Neg (Neg) Ur Amphetamines Screen Neg (Neg) U Benzodiazepines Scrn Neg (Neg) Urine Cocaine Screen Neg (Neg) U Cannabinoids Screen Neg (Neg) 12/02/17 12/03/17 12/03/17 Range/Units 22:50 04:00 04:11 WBC (4.0-11.0) th/mm3 RBC (4.50-5.90) mil/mm3 Hgb (13.0-17.0) gm/dL Hct (39.0-51.0) % MCV (80.0-100.0) fL MCH (27.0-34.0) pg MCHC (32.0-36.0) % RDW (11.6-17.2) % Plt Count (150-450) th/mm3 MPV (7.0-11.0) fL Neut % (Auto) (16.0-70.0) % Lymph % (Auto) (9.0-44.0) % [place] % (Auto) (0.0-8.0) % Eos % (Auto) (0.0-4.0) % Baso % (Auto) (0.0-2.0) % Neut # (Auto) (1.8-7.7) th/mm3 Lymph # (Auto) (1.0-4.8) th/mm3 [place] # (Auto) (0.0-0.9) th/mm3 Eos # (Auto) (0.0-0.4) th/mm3 Baso # (Auto) (0.0-0.2) th/mm3 WBC Differential Differential Comment PT (9.8-11.6) sec INR Ratio APTT (24.3-30.1) sec D-Dimer Quant (PE/DVT) (0.00-0.50) mg/L FEU Puncture Site Patient Temperature O2 Saturation (90-100) % ABG pH (7.380-7.420) ABG pCO2 (38-42) mmHg ABG pO2 (61-120) mmHg ABG HCO3 (22-26) mmol/L ABG O2 Content (12.0-20.0) Vol % ABG Base Excess (-2-2) mmol/L ABG Methemoglobin (0-2) % Nish Test Hemoglobin (12.0-16.0) G/DL Carboxyhemoglobin (0-4) % O2 Delivery Device Vent Setting Inspired O2 % Critical Value Sodium (136-145) meq/L Potassium (3.5-5.1) meq/L Chloride (98-107) meq/L Carbon Dioxide (21.0-32.0) meq/L Anion Gap (5-15) meq/L BUN (7-18) mg/dL Creatinine (0.60-1.30) mg/dL Estimated GFR (>89) mL/min POC Glucose 100 (68-110) mg/dl Random Glucose (74-106) mg/dL Lactic Acid (0.4-2.0) mmol/L Calcium (8.5-10.1) mg/dL Total Bilirubin (0.2-1.0) mg/dL AST (15-37) U/L ALT (12-78) U/L Alkaline Phosphatase (45-117) U/L Total Creatine Kinase (39-308) U/L CK-MB (CK-2) (0.5-3.6) ng/mL Troponin I 0.09 H (0.02-0.05) ng/mL Total Protein (6.4-8.2) g/dL Albumin (3.4-5.0) g/dL Urine Color [place] (Yellw/Straw) Urine Clarity Hazy H (Clear) Urine pH 5.0 (5.0-8.5) Ur Specific [place] 1.029 (1.002-1.035) Urine Protein 30 H (Neg-Trace) mg/dL Urine Glucose (UA) Negative (Negative) mg/dL Urine Ketones Negative (Negative) mg/dL Urine Occult Blood Negative (Negative) Urine Nitrate Negative (Negative) Urine Bilirubin Negative (Negative) Urine Urobilinogen 2.0 H (Less than 2) mg/dL Ur Leukocyte Esterase Negative (Negative) Urine RBC 1 (0-3) /hpf Urine WBC 2 (0-5) /hpf Calcium Oxalate Crystal Rare H (None) /hpf Hyaline Casts 23 (0-3) /lpf Granular Casts 4 (None) /lpf Urine Mucus Moderate H (Occasional) /lpf Micro UA Comment Culture not ind Ur Microscopic Review Not Reportable Urine Culture Comments Culture not ind Nasal Screen MRSA (PCR) (Negative) Urine Opiates Screen (Neg) Ur Barbiturates Screen (Neg) Ur Amphetamines Screen (Neg) U Benzodiazepines Scrn (Neg) Urine Cocaine Screen (Neg) U Cannabinoids Screen (Neg) 12/03/17 12/03/17 12/03/17 Range/Units 05:00 09:52 12:56 WBC (4.0-11.0) th/mm3 RBC (4.50-5.90) mil/mm3 Hgb (13.0-17.0) gm/dL Hct (39.0-51.0) % MCV (80.0-100.0) fL MCH (27.0-34.0) pg MCHC (32.0-36.0) % RDW (11.6-17.2) % Plt Count (150-450) th/mm3 MPV (7.0-11.0) fL Neut % (Auto) (16.0-70.0) % Lymph % (Auto) (9.0-44.0) % [place] % (Auto) (0.0-8.0) % Eos % (Auto) (0.0-4.0) % Baso % (Auto) (0.0-2.0) % Neut # (Auto) (1.8-7.7) th/mm3 Lymph # (Auto) (1.0-4.8) th/mm3 [place] # (Auto) (0.0-0.9) th/mm3 Eos # (Auto) (0.0-0.4) th/mm3 Baso # (Auto) (0.0-0.2) th/mm3 WBC Differential Differential Comment PT (9.8-11.6) sec INR Ratio APTT (24.3-30.1) sec D-Dimer Quant (PE/DVT) (0.00-0.50) mg/L FEU Puncture Site Patient Temperature O2 Saturation (90-100) % ABG pH (7.380-7.420) ABG pCO2 (38-42) mmHg ABG pO2 (61-120) mmHg ABG HCO3 (22-26) mmol/L ABG O2 Content (12.0-20.0) Vol % ABG Base Excess (-2-2) mmol/L ABG Methemoglobin (0-2) % Nish Test Hemoglobin (12.0-16.0) G/DL Carboxyhemoglobin (0-4) % O2 Delivery Device Vent Setting Inspired O2 % Critical Value Sodium (136-145) meq/L Potassium (3.5-5.1) meq/L Chloride (98-107) meq/L Carbon Dioxide (21.0-32.0) meq/L Anion Gap (5-15) meq/L BUN (7-18) mg/dL Creatinine (0.60-1.30) mg/dL Estimated GFR (>89) mL/min POC Glucose 90 (68-110) mg/dl Random Glucose (74-106) mg/dL Lactic Acid (0.4-2.0) mmol/L Calcium (8.5-10.1) mg/dL Total Bilirubin (0.2-1.0) mg/dL AST (15-37) U/L ALT (12-78) U/L Alkaline Phosphatase (45-117) U/L Total Creatine Kinase (39-308) U/L CK-MB (CK-2) (0.5-3.6) ng/mL Troponin I 0.05 (0.02-0.05) ng/mL Total Protein (6.4-8.2) g/dL Albumin (3.4-5.0) g/dL Urine Color (Yellw/Straw) Urine Clarity (Clear) Urine pH (5.0-8.5) Ur Specific [place] (1.002-1.035) Urine Protein (Neg-Trace) mg/dL Urine Glucose (UA) (Negative) mg/dL Urine Ketones (Negative) mg/dL Urine Occult Blood (Negative) Urine Nitrate (Negative) Urine Bilirubin (Negative) Urine Urobilinogen (Less than 2) mg/dL Ur Leukocyte Esterase (Negative) Urine RBC (0-3) /hpf Urine WBC (0-5) /hpf Calcium Oxalate Crystal (None) /hpf Hyaline Casts (0-3) /lpf Granular Casts (None) /lpf Urine Mucus (Occasional) /lpf Micro UA Comment Ur Microscopic Review Urine Culture Comments Nasal Screen MRSA (PCR) Not detected (Negative) Urine Opiates Screen (Neg) Ur Barbiturates Screen (Neg) Ur Amphetamines Screen (Neg) U Benzodiazepines Scrn (Neg) Urine Cocaine Screen (Neg) U Cannabinoids Screen (Neg) Imaging Data Radiologist's impression: Chest X-Ray 12/02/17 21:41 CONCLUSION: Right basilar airspace consolidation most characteristic of pneumonia. Chest CTA 12/02/17 21:44 CONCLUSION: 1. No pulmonary embolus. 2. Dense areas of consolidation or atelectasis involving the posterior lower lobes. Aspiration could be considered. 3. More diffuse patchy areas of consolidation which may relate to underlying processes edema. Chest X-Ray 12/02/17 22:05 CONCLUSION: Airspace consolidation right lung base. Endotracheal tube and nasogastric tube in good position. Discharge Plan Discharge Disposition Patient Disposition: 30 Still Patient Discharge Details Diagnosis: Respiratory failure, Pneumonia, Substance abuse Physicians Team ED Provider: Bryan Dykes Primary Care Provider: Primary Care Ekaterina Anderson Attending Provider: Mary Ellen Griffin Status ED Status: Left Department Discharge Information Discharge Date/Time: 12/03/17 05:04
[2017-12-02 22:02] LABS: Baso # (Auto) 0.1 th/mm3 (0.0-0.2); Baso % (Auto) 0.6 % (0.0-2.0); Eos # (Auto) 0.2 th/mm3 (0.0-0.4); Eos % (Auto) 1.4 % (0.0-4.0); Hematocrit 49.6 % (39.0-51.0); Hemoglobin 16.8 gm/dL (13.0-17.0); Lymph # (Auto) 2.6 th/mm3 (1.0-4.8); Lymph % (Auto) 17.9 % (9.0-44.0); Mean Corpuscular HGB Conc 33.9 % (32.0-36.0); Mean Corpuscular Volume 85.7 fL (80.0-100.0); Mean Platelet Volume 7.8 fL (7.0-11.0); Mono # (Auto) 1.3 th/mm3 (0.0-0.9); Mono % (Auto) 8.9 % (0.0-8.0); Neut # (Auto) 10.3 th/mm3 (1.8-7.7); Neut % (Auto) 71.2 % (16.0-70.0); Platelet Count 302 th/mm3 (150-450); Red Blood Count 5.79 mil/mm3 (4.50-5.90); Red Cell Distribution Width 13.3 % (11.6-17.2); White Blood Count 14.5 th/mm3 (4.0-11.0)
[2017-12-02 22:17] LABS: Activated Partial Thrombo Time 23.5 sec (24.3-30.1); D-Dimer 4.14 mg/L FEU (0.00-0.50); INR 1.1 Ratio; Prothrombin Time 11.1 sec (9.8-11.6)
[2017-12-02 22:18] LABS: Alanine Aminotransferase 20 U/L (12-78); Albumin 3.7 g/dL (3.4-5.0); Anion Gap 11 meq/L (5-15); Aspartate Aminotransferase 15 U/L (15-37); Blood Urea Nitrogen 18 mg/dL (7-18); Calcium 8.2 mg/dL (8.5-10.1); Carbon Dioxide 27.9 meq/L (21.0-32.0); Chloride 102 meq/L (98-107); Glomerular Filtration Rate 59 mL/min (>89); Glucose,Random 217 mg/dL (74-106); Potassium 3.4 meq/L (3.5-5.1); Sodium 141 meq/L (136-145)
[2017-12-02] MEDS: Sod Chloride 0.9% Inj 1,000 ML IV.CONT SCH (22:18)
[2017-12-02] MEDS: Propofol 1000 mg/100 ml Inj 1,000 MG/100 ML BOTTLE IV.CONT PRN (22:18)
--- NOTE | 2017-12-02 22:18 | XR ---
EXAM DATE: 12/02/2017 9:41 PM EDT AGE/SEX: 32 years / Male INDICATIONS: Short of breath. CLINICAL DATA: This is the patient's initial encounter. Patient reports that signs and symptoms have been present for 1 day and indicates a pain score of 0/10. MEDICAL/SURGICAL HISTORY: None. None. COMPARISON: [facility] [place], CHEST 2V PA&LAT, 09/11/2017. . FINDINGS: Patchy consolidation right lung base most characteristic of bronchopneumonia. No effusion. Left lung clear. Heart size normal. CONCLUSION: Right basilar airspace consolidation most characteristic of pneumonia. Electronically signed by: Anthony Robertson MD 12/02/2017 10:17 PM EDT
[2017-12-02 22:22] LABS: Alkaline Phosphatase 60 U/L (45-117); Creatine Kinase 190 U/L (39-308)
[2017-12-02] MEDS ORDERED: Midazolam 50 MG/50 ML Inj 50 MG/50 ML BAG IV.CONT ONE (22:22)
[2017-12-02] MEDS ORDERED: fentaNYL 10 mcg/mL Premix Drip 2,500 MCG/250 ML BAG ONE (22:22)
[2017-12-02] MEDS: Midazolam 50 MG/50 ML Inj 50 MG/50 ML BAG IV.CONT PRN (22:26)
[2017-12-02] MEDS: fentaNYL 10 mcg/mL Premix Drip 2,500 MCG/250 ML BAG IV.SIG PRN (22:29)
[2017-12-02 22:34] LABS: Creatine Kinase MB 1.4 ng/mL (0.5-3.6)
--- NOTE | 2017-12-02 22:38 | XR ---
EXAM DATE: 12/02/2017 10:05 PM EDT AGE/SEX: 32 years / Male INDICATIONS: S/P intubation and OG tube. CLINICAL DATA: This is the patient's initial encounter. Patient reports that signs and symptoms have been present for 1 day and indicates a pain score of Nonresponsive. MEDICAL/SURGICAL HISTORY: None. None. COMPARISON: [facility], CHEST 1V SINGLE AP, 12/02/2017. . FINDINGS: Endotracheal tube in good position. NG enters stomach. Airspace consolidation right lung base. No eff usion or pneumothorax. CONCLUSION: Airspace consolidation right lung base. Endotracheal tube and nasogastric tube in good position. Electronically signed by: Anthony Robertson MD 12/02/2017 10:36 PM EDT
[2017-12-02 23:16] LABS: ABG Base Excess -1.4 mmol/L (-2-2); ABG PCO2 46 mmHg (38-42); ABG PO2 115 mmHg (61-120)
[2017-12-02 23:26] LABS: Amphetamine Screen,Urine Neg (Neg); Barbiturate Screen,Urine Neg (Neg); Cannabinoid Screen,Urine Neg (Neg); Cocaine Screen,Urine Neg (Neg)
[2017-12-02 23:27] LABS: Bilirubin,Urine Negative (Negative); Calcium Oxalate Crystals,Urine Rare /hpf; Clarity,Urine Hazy (Clear); Color,Urine Amber (Yellw/Straw); Glucose,Urine (UA) Negative (Negative); Hyaline Casts,Urine 23 /lpf (0-3); Leukocyte Esterase,Urine Negative (Negative); Mucus,Urine Moderate /lpf (Occasional); Nitrite,Urine Negative (Negative); Opiate Screen,Urine Pos (Neg); Specific Gravity,Urine 1.029 (1.002-1.035)
[2017-12-02] MEDS ORDERED: Vancomycin Inj 1 GM/200 ML PIGGYBACK IV.SIG ONE (23:35)
[2017-12-02] MEDS ORDERED: Azithromycin Inj 500 MG in Sodium Chlor 0.9% Inj 250 ML IV.SIG ONE (23:35)
--- NOTE | 2017-12-02 23:59 | CT ---
EXAM DATE: 12/02/2017 10:37 PM EDT AGE/SEX: 32 years / Male INDICATIONS: Unresponsive; possible overdose. Rule out pulmonary embolus. CLINICAL DATA: This is the patient's initial encounter. Patient reports that signs and symptoms have been present for 1 day and indicates a pain score of Nonresponsive. MEDICAL/SURGICAL HISTORY: Non-responsive. Non-responsive. RADIATION DOSE: 10.62 CTDI (mGy) COMPARISON: No prior exams available for comparison. TECHNIQUE: Volumetric scanning was performed using a multi-row detector CT scanner during bolus infu ramon of 75 ml Omnipaque 350 (iohexol) nonionic water-soluble contrast as a single exam dose. The frandy a was post processed with a variety of visualization algorithms including full volume maximum intensi ty projection and sliding thin slab reformation. Using automated exposure control and adjustment of t he mA and/or kV according to patient size, radiation dose was kept as low as reasonably achievable to obtain optimal diagnostic quality images. DICOM format image data is available electronically for r eview and comparison. FINDINGS: Pulmonary Arteries: No filling defects are seen in the pulmonary arteries out to the subsegmental ve ssels. The left and right pulmonary arteries are normal in diameter. Lung: There is a dense consolidation and/or atelectasis involving the posterior aspects of the lower lobes bilaterally. There is more patchy consolidation seen throughout the lungs being more prominent on the right. Effusion: None. Mediastinum: No evidence of mediastinal or hilar adenopathy. Other: The axilla is unremarkable. The NG tube tip is directed into the stomach. The ET tube is well placed. CONCLUSION: 1. No pulmonary embolus. 2. Dense areas of consolidation or atelectasis involving the posterior lower lobes. Aspiration could be considered. 3. More diffuse patchy areas of consolidation which may relate to underlying processes edema. Electronically signed by: Kana Baldwin MD 12/02/2017 11:58 PM EDT
[2017-12-03] MEDS ORDERED: Vancomycin Inj 1,000 MG in Sodium Chlor 0.9% Inj 250 ML IV.SIG ONE ×2 (00:15→04:00)
[2017-12-03] MEDS ORDERED: Magnesium Oxide 400 MG Tablet PO PRN (03:36)
[2017-12-03] MEDS ORDERED: Potassium Phosphate Inj 30 MMOL in Sodium Chlor 0.9% Inj 250 ML IV.SIG PRN (03:36)
[2017-12-03] MEDS ORDERED: Potassium Chlor 40 mEq Premix 40 MEQ/100 ML PIGGYBACK IV.SIG PRN ×2 (03:36)
[2017-12-03] MEDS ORDERED: Sodium Phosphate Inj 30 MMOL in Sodium Chlor 0.9% Inj 250 ML IV.SIG PRN (03:36)
[2017-12-03] MEDS ORDERED: Magnesium Sulfate Inj 2 GM in Sodium Chlor 0.9% Inj 96 ML IV.SIG PRN (03:36)
[2017-12-03] MEDS ORDERED: Magnesium Sulfate Inj 4 GM in Sodium Chlor 0.9% Inj 92 ML IV.SIG PRN (03:36)
[2017-12-03] MEDS ORDERED: Potassium Phosphate 500 MG Soluble Tablet PO PRN ×2 (03:36)
[2017-12-03] MEDS ORDERED: Potassium Chlor 20 mEq Premix 20 MEQ/100 ML PIGGYBACK IV.SIG PRN (03:36)
[2017-12-03] MEDS ORDERED: Vancomycin Consult Pharmacy OTHER PRN (03:39)
[2017-12-03] MEDS ORDERED: Sodium Chlor 0.9% Inj 500 ML IV.SIG ONE (03:57)
[2017-12-03] MEDS ORDERED: Dextrose 50% in Water 50 ML Vial IV.PUSH PRN (03:57)
[2017-12-03] MEDS ORDERED: Bisacodyl 10 MG Supp RECTAL PRN (03:58)
[2017-12-03] MEDS ORDERED: Chlorhexidine Gluconate 2% 1 Pack (2 Cloths) TOPICAL PRN (04:00)
--- NOTE | 2017-12-03 04:10 | P.HPCC ---
History of Present Illness Service: Critical care medicine Primary Care Physician: No Primary Care Physician Chief Complaint: SOB History of Present Illness: 32-year-old male with past medical history of heroin and Dilaudid abuse. . At some point this evening he injected Dilaudid or heroin. He was found unresponsive. [facility] was called and he was administered Narcan. He then became responsive and was brought into the emergency department. He indicated that he has had a 2-week history of cough and congestion and has been on azithromycin for the last 10 days. He had ongoing productive cough and shortness of breath. He was placed on nonrebreather. His sats were than 89-90 % on nonrebreather and he ultimately required intubation for hypoxemia. CT chest was obtained which demonstrated dense bilateral posterior consolidations. There is also component of pulmonary edema. Scan is negative for pulmonary embolism. He has received vancomycin, cefepime, azithromycin in the emergency department. Unable to obtain further history from patient because he is intubated. - Diagnosis (1) Respiratory failure (2) Pneumonia (3) ANTHONY (acute kidney injury) (4) Polysubstance abuse (5) Acute hyperglycemia (6) IV drug abuse (7) Hypokalemia Inpatient Certification: I certify that the inpatient services were ordered in accordance with Medicare regulations governing the order. This includes certification that hospital inpatient services are reasonable and necessary and in the case of services not specified as inpatient-only under 42 CFR 419.22(n), that they are appropriately provided as inpatient services in accordance to with the 2-midnight benchmark under 43 CFR 412.3(e) Estimated Total Length of Stay (Days): 6 Plans for Post Hospital Care: Not yet determined Review of Systems unobtainable due to endotracheal tube PMFSH - History History Provided By: Patient, Director Of Social Work / EMT - Medical History Medical History: Medical History (Last Reviewed 12/03/17 @ 04:15 by Mary Ellen Griffin MD) GERD (gastroesophageal reflux disease) (Acute) - Surgical History Surgical History: Surgical History (Last Reviewed 12/03/17 @ 04:15 by Mary Ellen Griffin MD) No history of previous surgery (Acute) - Social History I have reviewed the patient's Social History: Yes - Tobacco History Second Hand Smoke Exposure: No Tobacco Use In Past 30 Days: Yes Smoking Status: Current every day smoker Tobacco Type: Cigarettes - Alcohol History How Often Do You Have a Drink Containing Alcohol: Monthly or less - Substance Use History Substance History: Past History - Travel History Recent Travel in the [place] Within the Last 8 Weeks: No - Immunization History Tetanus Immunization: Unsure Medications and Allergies Active Medications: Active Medications Acetaminophen (Tylenol) 650 mg PO Q6H PRN PRN Reason: PAIN 1-10 AND/OR FEVER >101F Al Hydroxide/Mg Hydroxide (Milk Of Magnesia Liq) 30 ml PO Q12H PRN PRN Reason: Mild Constipation Albuterol (Albuterol Neb (Lynnette)) 2.5 mg NEB Q2HR NEB PRN PRN Reason: SHORTNESS OF BREATH/WHEEZING Albuterol (Duoneb Neb (Prn)) 1 ampul NEB Q4HR NEB [place] Bisacodyl (Dulcolax Supp) 10 mg RECTAL DAILY PRN PRN Reason: SEVERE CONSITIPATION Chlorhexidine Gluconate (Peridex 0.12% Oral Kit) 15 ml OROPHARYNG BID@0800, 2000 [facility] Chlorhexidine Gluconate (Chlorhexidine 2% Cloth) 3 pack TOPICAL DAILY@0400 [place] Stop: 12/08/17 03:59 Chlorhexidine Gluconate (Chlorhexidine 2% Cloth) 3 pack TOPICAL DAILY@0400 PRN PRN Reason: Extra cloth needed Stop: 12/08/17 03:59 Dextrose (D50w Vial) 50 ml IV.PUSH UNSCH PRN PRN Reason: PER HYPOGLYCEMIA PROTOCOL Enoxaparin Sodium (Lovenox Inj) 40 mg SQ Q24H [place] Glucagon (Glucagon Inj) 1 mg OTHER PRN PRN PRN Reason: for Hypoglycemia Protocol Sodium Chloride (Ns Inj) 1,000 mls @ 125 mls/hr IV.CONT .Q8H [facility] Last Admin: 12/02/17 22:18 Dose: 125 mls/hr Fentanyl (Fentanyl 10 Mcg/Ml Premix Drip) 2,500 mcg in 250 mls @ 5 mls/hr IV.SIG TITRATE PRN; Protocol PRN Reason: Per Protocol Last Titration: 12/03/17 03:57 Dose: 200 mcg/hr, 20 mls/hr Midazolam HCl (Versed Inj) 50 mg in 50 mls @ 2 mls/hr IV.CONT TITRATE PRN; Protocol PRN Reason: Per Protocol Last Titration: 12/03/17 01:29 Dose: 8 mg/hr, 8 mls/hr Propofol (Diprivan 1000 Mg/100 Ml Inj) 1,000 mg in 100 mls @ 3.402 mls/hr IV.CONT TITRATE PRN; Protocol PRN Reason: Per Protocol Last Titration: 12/02/17 22:25 Dose: 0 mcg/kg/min, 0 mls/hr Magnesium Sulfate 4 gm/ Sodium (Chloride) 100 mls @ 50 mls/hr IV.SIG UNSCH PRN PRN Reason: For Magnesium 0.9 - 1.1 mg/dL Magnesium Sulfate 2 gm/ Sodium (Chloride) 100 mls @ 50 mls/hr IV.SIG UNSCH PRN PRN Reason: For Magnesium 1.2 - 1.6 mg/dL Potassium Chloride (Kcl 40 Meq Premix Inj) 40 meq in 100 mls @ 25 mls/hr IV.SIG Q2H PRN PRN Reason: For Potassium 2.8 - 3.2 mEq/L Potassium Chloride (Kcl 20 Meq Premix Inj) 20 meq in 100 mls @ 50 mls/hr IV.SIG Q2H PRN PRN Reason: For Potassium 3.3 - 3.5 mEq/L Potassium Chloride (Kcl 40 Meq Premix Inj) 40 meq in 100 mls @ 25 mls/hr IV.SIG UNSCH PRN PRN Reason: For Potassium 3.3 - 3.5 mEq/L Potassium Chloride (Kcl 20 Meq Premix Inj) 20 meq in 100 mls @ 50 mls/hr IV.SIG Q2H PRN PRN Reason: For Potassium 2.8 - 3.2 mEq/L Sodium Phosphate 30 mmol/ (Sodium Chloride) 260 mls @ 42 mls/hr IV.SIG UNSCH PRN PRN Reason: For Phosphorus < 2.5 mg/dL Potassium Phosphate 30 mmol/ (Sodium Chloride) 260 mls @ 42 mls/hr IV.SIG UNSCH PRN PRN Reason: SEE LABEL COMMENTS Azithromycin 500 mg/ Sodium (Chloride) 250 mls @ 250 mls/hr IV.SIG Q24H [place] Vancomycin HCl 1,000 mg/ (Sodium Chloride) 250 mls @ 250 mls/hr IV.SIG ONCE ONE Stop: 12/03/17 04:59 Piperacillin/Tazobactam/Dextrose (Zosyn 3.375 Gm Premix) 50 mls @ 100 mls/hr IV.SIG Q6H [place] Insulin Aspart (Novolog Insulin Correctional Sugar Inj) 0 unit SQ Q4HR [place]; Protocol Lactulose (Lactulose Liq) 30 ml PO DAILY PRN PRN Reason: SEVERE CONSITIPATION Magnesium Oxide (Mag-Ox) 800 mg PO UNSCH PRN PRN Reason: For Magnesium 1.2 - 1.6 mg/dL Miscellaneous Medication () 1 each OROPHARYNG 0000,0400,1200,1600 [place] Pantoprazole Sodium (Protonix Inj) 40 mg IV.PUSH DAILY [facility] Pharmacy Profile Note (Vancomycin Consult Pharmacy) 1 each OTHER UNSCH PRN PRN Reason: Pharmacy to dose Potassium Bicarb/Potassium Chloride (K-Lyte Cl Eff) 50 meq PO UNSCH PRN PRN Reason: For Potassium 3.3 - 3.5 mEq/L Potassium Phosphate (K-Phos Original) 2,000 mg PO Q4H PRN PRN Reason: Phosphorus Less Than 2.5 mg/dL Potassium Phosphate (K-Phos Original) 2,000 mg PO UNSCH PRN PRN Reason: SEE LABEL COMMENTS Senna/Docusate Sodium (Marva-Colace) 1 tab PO BID [place] Sennosides (Senokot) 17.2 mg PO Q12H PRN PRN Reason: Moderate Constipation Sodium Chloride (Ns Flush) 2 ml IV.FLUSH BID [place] Sodium Chloride (Ns Flush) 2 ml IV.FLUSH PRN PRN PRN Reason: FLUSH AFTER USING IV ACCESS Allergies Allergy/AdvReac Type Severity Reaction Status Date / Time diphenhydramine Allergy Severe Anxiety Verified 12/16/17 13:55 metoclopramide Allergy Severe Anxiety Verified 12/16/17 13:55 Home Medications Medication Instructions Recorded Confirmed Type No Known Home Medications 12/16/17 12/16/17 History Results - Labs CBC & Chem 7: 12/12/17 04:43 12/14/17 04:32 Labs: Short CBC 12/02/17 Range/Units 21:40 WBC 14.5 H (4.0-11.0) th/mm3 Hgb 16.8 (13.0-17.0) gm/dL Hct 49.6 (39.0-51.0) % Plt Count 302 (150-450) th/mm3 BMP 12/02/17 21:40 Sodium 141 Potassium 3.4 L Chloride 102 Carbon Dioxide 27.9 BUN 18 Creatinine 1.40 H Calcium 8.2 L Cardiac Enzymes 12/02/17 Range/Units 21:40 Total Creatine Kinase 190 (39-308) U/L CK-MB (CK-2) 1.4 (0.5-3.6) ng/mL Troponin I Less than 0.02 L (0.02-0.05) ng/mL Liver Function 12/02/17 Range/Units 21:40 Total Bilirubin 1.6 H (0.2-1.0) mg/dL AST 15 (15-37) U/L ALT 20 (12-78) U/L Alkaline Phosphatase 60 (45-117) U/L Albumin 3.7 (3.4-5.0) g/dL Urine 12/02/17 Range/Units 22:50 Urine Color [facility] (Yellw/Straw) Urine Clarity Hazy H (Clear) Urine pH 5.0 (5.0-8.5) Ur Specific [place] 1.029 (1.002-1.035) Urine Protein 30 H (Neg-Trace) mg/dL Urine Glucose (UA) Negative (Negative) mg/dL - Imaging Impressions Chest X-Ray 12/02/17 21:41 CONCLUSION: Right basilar airspace consolidation most characteristic of pneumonia. Chest CTA 12/02/17 21:44 CONCLUSION: 1. No pulmonary embolus. 2. Dense areas of consolidation or atelectasis involving the posterior lower lobes. Aspiration could be considered. 3. More diffuse patchy areas of consolidation which may relate to underlying processes edema. Chest X-Ray 12/02/17 22:05 CONCLUSION: Airspace consolidation right lung base. Endotracheal tube and nasogastric tube in good position. Exam Vital signs: Vital Signs 12/02/17 21:31 12/02/17 22:08 12/02/17 22:12 Temperature 100.3 F H Pulse Rate 151 H 150 H Respiratory Rate 26 H 26 H 16 Blood Pressure 158/74 H 166/90 H Pulse Oximetry 98 91 L 97 12/02/17 22:15 12/02/17 22:19 12/02/17 22:30 Temperature Pulse Rate 113 H 105 H Respiratory Rate 16 16 Blood Pressure 92/53 L 108/61 Pulse Oximetry 96 91 L 96 12/02/17 22:48 12/02/17 23:13 12/02/17 23:15 Temperature Pulse Rate 106 H 118 H Respiratory Rate 16 16 Blood Pressure 105/56 L 168/82 H Pulse Oximetry 100 95 98 12/02/17 23:33 12/03/17 00:38 12/03/17 01:29 Temperature Pulse Rate 120 H 122 H 122 H Respiratory Rate 16 16 16 Blood Pressure 134/60 122/66 94/54 L Pulse Oximetry 97 99 100 12/03/17 02:08 12/03/17 02:21 12/03/17 03:10 Temperature Pulse Rate 122 H Respiratory Rate 16 Blood Pressure 98/54 L Pulse Oximetry 97 96 91 L 12/03/17 03:27 Temperature Pulse Rate 128 H Respiratory Rate 16 Blood Pressure 102/51 L Pulse Oximetry 97 Intake & Output 12/02/17 12/02/17 12/03/17 06:59 18:59 06:59 Intake Total 600 / 600 Output Total 400 / 400 Balance 200 / 200 Weight 100 kg Intake: IV 600 / 600 Azithromycin Inj 500 MG In NS 250 / 250 Inj 250 ML @ 250 mls/hr IV.SIG ONCE ONE Rx#:[id number] Maxipime Inj 1,000 MG In NS Inj 100 / 100 100 ML @ 200 mls/hr IV.SIG ONCE ONE Rx#:[id number] Vancomycin Inj 1,000 MG In NS 250 / 250 Inj 250 ML @ 250 mls/hr IV.SIG ONCE ONE Rx#:[id number] Output: Urine Amount (Catheter) 400 / 400 Indwelling Urethral Catheter 400 / 400 Narrative: GENERAL: Well-nourished, well-developed patient who is orotracheally intubated and sedated. SKIN: Warm and dry. HEAD: Atraumatic. Normocephalic. EYES: Pupils equal and round, 2 mm and reactive bilaterally.. No scleral icterus. There is conjunctival injection. ENT: No nasal bleeding or discharge. Mucous membranes pink and moist. NECK: Trachea midline. No JVD. CARDIOVASCULAR: Tachycardic, regular, sinus tach on monitor. No murmurs rubs or gallops. RESPIRATORY: Orotracheally intubated, spontaneous respiratory rate 17.. Rhonchorous breath sounds bilaterally with bilateral wheeze. No rales. GASTROINTESTINAL: Abdomen soft, non-tender, nondistended. Bowel sounds present. MUSCULOSKELETAL: Extremities without clubbing, cyanosis, or edema. No obvious deformities. NEUROLOGICAL: Sedated for ventilator synchrony with severe pneumonia. Positive facial grimace with deep noxious stimuli. Moves all extremities. No apparent focal deficit. Does not follow commands. Septic Shock Reassessment Septic shock perfusion: reassessment completed Caprini VTE Risk Assessment Caprini VTE Risk Assessment: Moderate/High Risk (score >= 2) Caprini Risk Assessment Model: Point Value = 1 Point Value = 2 Point Value = 3 Point Value = 5 Age 41-60 Minor surgery BMI > 25 kg/m2 Swollen legs Varicose veins or History of unexplained or recurrent spontaneous Oral contraceptives or hormone replacement Sepsis (< 1 month) Serious lung disease, including pneumonia (< 1 month) Abnormal pulmonary function Acute myocardial infarction Congestive heart failure (< 1 month) History of inflammatory bowel disease Medical patient at bed rest Age 61-74 Arthroscopic surgery Major open surgery (> 45 min) Laparoscopic surgery (> 45 min) Malignancy Confined to bed (> 72 hours) Immobilizing plaster cast Central venous access Age >= 75 History of VTE Family history of VTE Factor V Leiden Prothrombin [id number] Lupus anticoagulant Anticardiolipin antibodies Elevated serum homocysteine Heparin-induced thrombocytopenia Other congenital or acquired thrombophilia Stroke (< 1 month) Elective arthroplasty Hip, pelvis, or leg fracture Acute spinal cord injury (< 1 month) Prophylaxis Regimen: Total Risk Factor Score Risk Level Prophylaxis Regimen 0-1 Low Early ambulation 2 Moderate Order ONE of the following: *Sequential Compression Device (SCD) *Heparin 5000 units SQ BID 3-4 Higher Order ONE of the following medications: *Heparin 5000 units SQ TID *Enoxaparin/Lovenox 40 mg SQ daily (WT < 150 kg, CrCl > 30 mL/min) *Enoxaparin/Lovenox 30 mg SQ daily (WT < 150 kg, CrCl > 10-29 mL/min) *Enoxaparin/Lovenox 30 mg SQ BID (WT < 150 kg, CrCl > 30 mL/min) AND/OR *Sequential Compression Device (SCD) 5 or more Highest Order ONE of the following medications: *Heparin 5000 units SQ TID (Preferred with Epidurals) *Enoxaparin/Lovenox 40 mg SQ daily (WT < 150 kg, CrCl > 30 mL/min) *Enoxaparin/Lovenox 30 mg SQ daily (WT < 150 kg, CrCl > 10-29 mL/min) *Enoxaparin/Lovenox 30 mg SQ BID (WT < 150 kg, CrCl > 30 mL/min) AND *Sequential Compression Device (SCD) Assessment and Plan - Problem List (1) Respiratory failure Code(s): J96.90 - Respiratory failure, unspecified, unspecified whether with hypoxia or hypercapnia Status: Acute (2) Pneumonia Code(s): J18.9 - Pneumonia, unspecified organism Status: Acute (3) ANTHONY (acute kidney injury) Code(s): N17.9 - Acute kidney failure, unspecified Status: Acute (4) Polysubstance abuse Code(s): F19.10 - Other psychoactive substance abuse, uncomplicated Status: Acute (5) Acute hyperglycemia Code(s): R73.9 - Hyperglycemia, unspecified Status: Acute (6) IV drug abuse Code(s): F19.10 - Other psychoactive substance abuse, uncomplicated Status: Chronic (7) Hypokalemia Code(s): E87.6 - Hypokalemia Status: Acute - Assessment and Plan Plan: NEURO: IV drug use (opioid) Was responsive following Narcan Currently on fentanyl and Versed for sedation. Would prefer to use propofol over Versed if blood pressure will tolerate. Target RASS -2/maintenance of ventilator synchrony. RESP: Acute hypoxemic respiratory failure CT pulmonary angiogram negative for PE. There is bilateral lower lobe consolidation. There is pulmonary edema which may be secondary to opioid overdose. ACV TV 575/rate 16/PEEP 8/FiO2 100%. Wean FiO2 as tolerated. Ventilator bundle DuoNeb every 4 hours Albuterol every 2 hours as needed CV: Monitor hemodynamics Initial troponin is negative. Will trend. Obtain 2D echo in view of pulmonary edema though suspect this is noncardiogenic. GI: OG tube to low intermittent wall suction. Initiate tube feeds when stabilized. FEN/RENAL: Acute kidney injury Acute hypokalemia Duong was inserted in the ED. Monitor intake and output. Monitor electrolytes. Replace electrolytes as indicated per ICU electrolyte replacement protocol. ID: Leukocytosis Acute community-acquired pneumonia. This may be related to aspiration. However he has been having respiratory symptoms for a couple of weeks now despite azithromycin so do consider the possibility of post viral pneumonia. He has been screened for influenza which is negative. Will cover with Zosyn 3.375 g IV every 6 hours, vancomycin, Levaquin. Obtain urine Legionella and pneumococcal antigens. Follow-up UA and culture. Follow-up blood culture. HEME: No acute hematologic issues. ENDO: Acute hyperglycemia Monitor bedside glucose every 4 hours and administer low-dose insulin sliding scale as indicated. PROPH: SCDs/Lovenox 40 mg subcu daily for DVT prophylaxis. Protonix 40 mg IV daily for stress ulcer prophylaxis. ACCESS: Peripheral IV providing adequate access at this time. Will place central venous line if needed. Full code Patient is critically ill with opioid overdose resulting in aspiration pneumonia and severe hypoxemic respiratory failure. She had he is at risk for further deterioration, worsening hypoxemia, shock. Discussed with Dr. Dykes. Critical care time 60 minutes exclusive of separately billable procedures. (1) Respiratory failure Qualifiers: Chronicity: acute Respiratory failure complication: hypoxia and hypercapnia Qualified Code(s): J96.01 - Acute respiratory failure with hypoxia; J96.02 - Acute respiratory failure with hypercapnia (2) Pneumonia Qualifiers: Pneumonia type: due to unspecified organism Laterality: right Lung location : lower lobe of lung Qualified Code(s): J18.1 - Lobar pneumonia, unspecified organism
[2017-12-03] MEDS: Enoxaparin Inj 40 MG/0.4 ML Syringe SQ SCH (04:15)
[2017-12-03] MEDS: Insulin NovoLOG Aspart Correctional Sugar Inj SQ SCH ×6 (04:16→23:56)
[2017-12-03] MEDS ORDERED: Midazolam Inj 5 MG/ML 1 ML Vial ONE (04:44)
[2017-12-03] MEDS: Chlorhexidine Gluconate 2% 1 Pack (2 Cloths) TOPICAL SCH (05:53)
[2017-12-03] MEDS: Oral Hygiene Kit OROPHARYNG SCH ×4 (06:24→23:59)
[2017-12-03] MEDS: Sod Chloride 0.9% Inj 1,000 ML IV.CONT SCH ×3 (06:33→22:15)
[2017-12-03] MEDS: Levofloxacin 500 mg Premix Inj 500 MG/100 ML PIGGYBACK IV.SIG SCH (06:33)
[2017-12-03] MEDS: Midazolam 50 MG/50 ML Inj 50 MG/50 ML BAG IV.CONT PRN ×3 (06:34→20:43)
[2017-12-03] MEDS: Piperacil/Tazo 3.375 GM Premix 50 ML IV.SIG SCH ×4 (06:34→23:58)
[2017-12-03] MEDS: Acetaminophen 325 MG Tablet PO PRN (07:46)
[2017-12-03] MEDS: Propofol 1000 mg/100 ml Inj 1,000 MG/100 ML BOTTLE IV.CONT PRN ×2 (07:46→14:48)
--- NOTE | 2017-12-03 09:37 | ECG ---
Date Performed: 12/02/2017 Time Performed: 21:36:54 PTAGE: 32 years EKG: PROBABLE SINUS TACHYCARDIA WITH SHORT AL INTERVAL ABNORMAL RHYTHM ECG Compared to prior leon ctrocardiogram, rate has increased . PREVIOUS TRACING : 11/22/2017 21.22 DOCTOR: Jose Antonio Graff Interpretating Date/Time 12/03/2017 09:37:11
[2017-12-03] MEDS: Senna/Docusate Sodium 8.6/50 MG Tablet PO SCH ×2 (10:45→20:33)
[2017-12-03] MEDS: Chlorhexidine 0.12% Oral Kit 15 ML UDC OROPHARYNG SCH ×2 (10:45→20:33)
[2017-12-03] MEDS: Pantoprazole Inj 40 MG Vial IV.PUSH SCH (10:45)
[2017-12-03] MEDS: fentaNYL 10 mcg/mL Premix Drip 2,500 MCG/250 ML BAG IV.SIG PRN ×2 (10:46→20:43)
[2017-12-03] MEDS: Potassium Chloride 25 MEQ Effervescent Tablet PO PRN (13:03)
[2017-12-03] MEDS: Vancomycin Inj 1,500 MG in Sodium Chlor 0.9% Inj 500 ML IV.SIG SCH (16:20)
[2017-12-04] MEDS ORDERED: Azithromycin Inj 500 MG in Sodium Chlor 0.9% Inj 250 ML IV.SIG SCH (00:05)
[2017-12-04] MEDS: Midazolam 50 MG/50 ML Inj 50 MG/50 ML BAG IV.CONT PRN ×4 (01:49→18:17)
[2017-12-04] MEDS: Chlorhexidine Gluconate 2% 1 Pack (2 Cloths) TOPICAL SCH (03:49)
[2017-12-04] MEDS: Insulin NovoLOG Aspart Correctional Sugar Inj SQ SCH ×5 (03:49→20:57)
[2017-12-04] MEDS: Enoxaparin Inj 40 MG/0.4 ML Syringe SQ SCH (03:49)
[2017-12-04] MEDS: Vancomycin Inj 1,500 MG in Sodium Chlor 0.9% Inj 500 ML IV.SIG SCH ×2 (03:50→16:14)
[2017-12-04] MEDS: Oral Hygiene Kit OROPHARYNG SCH ×3 (03:50→15:44)
--- NOTE | 2017-12-04 04:00 | XR ---
EXAM DATE: 12/04/2017 4:01 AM EDT AGE/SEX: 32 years / Male INDICATIONS: Shortness of breath, possible pulmonary disease. CLINICAL DATA: This is the patient's subsequent encounter. Patient reports that signs and symptoms h ave been present for 2 days and indicates a pain score of Nonresponsive. MEDICAL/SURGICAL HISTORY: None. None. COMPARISON: C, CHEST 1V SINGLE AP, 12/02/2017. . FINDINGS: The ET tube and NG tube are well placed. The heart size is normal. There areas of increased density s een in the lower lungs and perihilar regions. CONCLUSION: Perihilar and lower lobe areas of consolidation or atelectasis which appear to progress since the caren or exam. Electronically signed by: Kana Baldwin MD 12/04/2017 3:58 AM EDT
[2017-12-04] MEDS: Levofloxacin 500 mg Premix Inj 500 MG/100 ML PIGGYBACK IV.SIG SCH (04:35)
[2017-12-04 04:45] LABS: Baso % (Auto) 0.2 % (0.0-2.0); Eos # (Auto) 0.3 th/mm3 (0.0-0.4); Eos % (Auto) 1.7 % (0.0-4.0); Hematocrit 38.3 % (39.0-51.0); Lymph # (Auto) 2.8 th/mm3 (1.0-4.8); Mean Corpuscular HGB Conc 34.1 % (32.0-36.0); Mean Corpuscular Hemoglobin 29.5 pg (27.0-34.0); Mean Corpuscular Volume 86.6 fL (80.0-100.0); Mean Platelet Volume 8.2 fL (7.0-11.0); Mono # (Auto) 1.2 th/mm3 (0.0-0.9); Mono % (Auto) 7.8 % (0.0-8.0); Neut # (Auto) 11.4 th/mm3 (1.8-7.7); Neut % (Auto) 72.3 % (16.0-70.0); Platelet Count 176 th/mm3 (150-450); Red Blood Count 4.42 mil/mm3 (4.50-5.90); Red Cell Distribution Width 13.7 % (11.6-17.2); White Blood Count 15.7 th/mm3 (4.0-11.0)
[2017-12-04 05:13] LABS: Alanine Aminotransferase 16 U/L (12-78); Albumin 2.3 g/dL (3.4-5.0); Alkaline Phosphatase 45 U/L (45-117); Anion Gap 11 meq/L (5-15); Aspartate Aminotransferase 60 U/L (15-37); Blood Urea Nitrogen 13 mg/dL (7-18); Calcium 7.7 mg/dL (8.5-10.1); Carbon Dioxide 22.9 meq/L (21.0-32.0); Chloride 109 meq/L (98-107); Glomerular Filtration Rate 82 mL/min (>89); Glucose,Random 79 mg/dL (74-106); Potassium 4.2 meq/L (3.5-5.1); Sodium 143 meq/L (136-145); Total Protein 5.5 g/dL (6.4-8.2)
[2017-12-04] MEDS: Piperacil/Tazo 3.375 GM Premix 50 ML IV.SIG SCH ×4 (05:29→23:53)
[2017-12-04] MEDS: Sod Chloride 0.9% Inj 1,000 ML IV.CONT SCH ×2 (05:29→13:21)
[2017-12-04] MEDS: fentaNYL 10 mcg/mL Premix Drip 2,500 MCG/250 ML BAG IV.SIG PRN ×2 (06:38→17:02)
[2017-12-04] MEDS: Chlorhexidine 0.12% Oral Kit 15 ML UDC OROPHARYNG SCH ×2 (08:40→21:02)
[2017-12-04] MEDS: Senna/Docusate Sodium 8.6/50 MG Tablet PO SCH ×2 (08:40→21:01)
[2017-12-04] MEDS: Pantoprazole Inj 40 MG Vial IV.PUSH SCH (08:41)
--- NOTE | 2017-12-04 12:48 | P.PNCC ---
Subjective Subjective Remarks/Hospital Course: 32-year-old male complains of chest pain shortness of breath. Patient states that he has productive cough for the past 2 weeks. Patient was seen in emergency room 10 days ago and given prescription for Z-Jose. Patient states that he took a Z-Jose as directed. Patient states that he has persistent cough despite Z-Jose. denies any fever chills. Patient states that he shot up either heroin or Dilaudid this afternoon. Patient was found unresponsive. EMS was called. Patient was given Narcan 0.4 mg IV. Patient woke up. Patient still complaining of severe shortness of breath. Patient states that he has fever this evening. Patient denies any headache. Patient denies any neck pain. Patient complains of heaviness anterior chest wall. Patient denies abdominal pain. Patient denies nausea vomiting diarrhea. Patient denies any focal weakness or numbness of the extremity. Patient was given nonrebreathing mask on the way to the ED. 12/04: Remains intubated, heavily sedated for severe pneumonia and sepsis. Chest x-ray shows worsening infiltrates, WBC count 17 K. GPC in blood culture currently receiving antibiotics including vancomycin. 2D echo is pending at this time Objective Vital Signs / I&O: Vital Signs 12/03/17 13:00 12/03/17 14:00 12/03/17 15:00 Temperature Pulse Rate 107 H 105 H 103 H Respiratory Rate 15 15 14 Blood Pressure 94/59 L 92/55 L 89/53 L Pulse Oximetry 91 L 92 L 94 L 12/03/17 15:13 12/03/17 16:00 12/03/17 17:00 Temperature 99.7 F H Pulse Rate 107 H 106 H Respiratory Rate 15 15 Blood Pressure 89/55 L 91/57 L Pulse Oximetry 94 L 91 L 94 L 12/03/17 18:00 12/03/17 19:00 12/03/17 20:00 Temperature 100.8 F H Pulse Rate 107 H 108 H 108 H Respiratory Rate 14 14 14 Blood Pressure 88/52 L 94/57 L 95/60 L Pulse Oximetry 94 L 97 97 12/03/17 20:25 12/03/17 20:26 12/03/17 21:00 Temperature Pulse Rate 109 H 115 H Respiratory Rate 14 14 16 Blood Pressure 103/65 Pulse Oximetry 100 97 12/03/17 22:00 12/03/17 23:00 12/03/17 23:22 Temperature Pulse Rate 109 H 109 H 112 H Respiratory Rate 16 16 16 Blood Pressure 96/56 L 95/58 L Pulse Oximetry 99 100 12/03/17 23:23 12/04/17 00:00 12/04/17 01:00 Temperature 99.9 F H Pulse Rate 111 H 106 H Respiratory Rate 17 19 17 Blood Pressure 97/60 L 97/60 L Pulse Oximetry 99 96 100 12/04/17 02:00 12/04/17 03:00 12/04/17 04:00 Temperature 99.7 F H Pulse Rate 105 H 123 H 111 H Respiratory Rate 16 21 14 Blood Pressure 96/57 L 117/67 106/59 L Pulse Oximetry 99 96 98 12/04/17 04:03 12/04/17 05:00 12/04/17 06:00 Temperature Pulse Rate 110 H 101 H 116 H Respiratory Rate 14 15 28 H Blood Pressure 98/56 L 102/70 Pulse Oximetry 98 100 100 12/04/17 07:00 12/04/17 07:53 12/04/17 08:00 Temperature 101.8 F H Pulse Rate 97 H 104 H 101 H Respiratory Rate 15 18 17 Blood Pressure 100/59 L 102/58 L Pulse Oximetry 100 98 12/04/17 09:00 12/04/17 10:00 12/04/17 11:00 Temperature Pulse Rate 98 H 91 H 87 Respiratory Rate 16 15 15 Blood Pressure 98/54 L 93/50 L 93/52 L Pulse Oximetry 95 97 98 12/04/17 11:06 12/04/17 11:15 12/04/17 11:30 Temperature Pulse Rate 105 H 88 Respiratory Rate 14 20 15 Blood Pressure 97/57 L 85/50 L Pulse Oximetry 98 98 96 12/04/17 11:45 12/04/17 12:00 Temperature 98.8 F Pulse Rate 89 86 Respiratory Rate 21 16 Blood Pressure 90/50 L 85/52 L Pulse Oximetry 98 96 Intake & Output 12/03/17 12/04/17 12/04/17 18:59 06:59 18:59 Intake Total 2315 / 2315 3315 / 3315 50 / 50 Output Total 1800 / 1800 Balance 2315 / 2315 1515 / 1515 50 / 50 Weight 100.2 kg Intake: IV 2315 / 2315 3315 / 3315 50 / 50 Versed Inj 50 mg In 50 ml @ 2 100 / 100 100 / 100 50 / 50 MG/HR 2 mls/hr IV.CONT TITRATE PRN Rx#:[id number] Diprivan 1000 mg/100 ml Inj 1, 200 / 200 000 mg In 100 ml @ 5 MCG/KG/MIN 3.402 mls/hr IV.CONT TITRATE PRN Rx#:[id number] NS Inj 1,000 ML @ 125 mls/hr IV 1000 / 1000 2000 / 1999 .CONT .Q8H ALEXANDER Rx#:[id number] Levaquin 500 mg Premix Inj 500 100 / 100 100 / 100 mg In 100 ml @ 100 mls/hr IV. SIG Q24H ALEXANDER Rx#:[id number] Zosyn 3.375 GM Premix 50 ML @ 150 / 150 100 / 100 100 mls/hr IV.SIG Q6H ALEXANDER Rx#: [id number] Vancomycin Inj 1,500 MG In NS 515 / 515 515 / 515 Inj 500 ML @ 250 mls/hr IV.SIG Q12H ALEXANDER Rx#:[id number] fentaNYL 10 mcg/mL Premix Drip 250 / 250 500 / 500 2,500 mcg In 250 ml @ 50 MCG/HR 5 mls/hr IV.SIG TITRATE PRN Rx #:[id number] Oral 0 / 0 Oral Supplement 0 / 0 Tube Feeding 0 / 0 Tube Irrigant 0 / 0 Water Bolus Amount 0 / 0 Output: Urine Amount (Catheter) 1400 / 1400 Straight 1400 / 1400 Gastric Drainage 400 / 400 Oral Orogastric Tube 400 / 400 Other: # Bowel Movements 0 Result Diagrams: 12/04/17 03:40 12/04/17 03:40 Imaging: GENERAL: Well-nourished, well-developed patient who is orotracheally intubated and sedated. SKIN: Warm and dry. HEAD: Atraumatic. Normocephalic. EYES: Pupils equal and round, 2 mm and reactive bilaterally. No scleral icterus. There is conjunctival injection. ENT: No nasal bleeding or discharge. Mucous membranes pink and moist. NECK: Trachea midline. No JVD. CARDIOVASCULAR: Tachycardic, regular, sinus tach on monitor. No murmurs rubs or gallops. RESPIRATORY: Orotracheally intubated, Rhonchorous breath sounds bilaterally with bilateral wheeze. No rales. GASTROINTESTINAL: Abdomen soft, non-tender, nondistended. Bowel sounds present. MUSCULOSKELETAL: Extremities without clubbing, cyanosis, or edema. No obvious deformities. NEUROLOGICAL: Sedated for ventilator synchrony with severe pneumonia. Moves all extremities. No apparent focal deficit. Does not follow commands. Objective Remarks: GENERAL: Well-nourished, well-developed patient who is orotracheally intubated and sedated. SKIN: Warm and dry. HEAD: Atraumatic. Normocephalic. EYES: Pupils equal and round, 2 mm and reactive bilaterally.. No scleral icterus. There is conjunctival injection. ENT: No nasal bleeding or discharge. Mucous membranes pink and moist. NECK: Trachea midline. No JVD. CARDIOVASCULAR: Tachycardic, regular, sinus tach on monitor. No murmurs rubs or gallops. RESPIRATORY: Orotracheally intubated, spontaneous respiratory rate 17.. Rhonchorous breath sounds bilaterally with bilateral wheeze. No rales. GASTROINTESTINAL: Abdomen soft, non-tender, nondistended. Bowel sounds present. MUSCULOSKELETAL: Extremities without clubbing, cyanosis, or edema. No obvious deformities. NEUROLOGICAL: Sedated for ventilator synchrony with severe pneumonia. Positive facial grimace with deep noxious stimuli. Moves all extremities. No apparent focal deficit. Does not follow commands. Assessment and Plan - Assessment and Plan Plan: NEURO: IV drug use (opioid) Currently on propofol, fentanyl and Versed for sedation. Target RASS -2/maintenance of ventilator synchrony. Was responsive following Narcan prior to intubation according to the notes RESP: Acute hypoxemic respiratory failure Bilateral pneumonia CT pulmonary angiogram negative for PE. There is bilateral lower lobe consolidation. There is pulmonary edema which may be secondary to opioid overdose. ACV TV 575/rate 16/PEEP 8/FiO2 40%. Wean FiO2 as tolerated. Ventilator bundle DuoNeb every 4 hours Albuterol every 2 hours as needed Patient continues to have severe pneumonia not clinically stable for CPAP Check CT of the chest to rule out septic emboli CV: Monitor hemodynamics Initial troponin is negative. Will trend. Obtain 2D echo in view of pulmonary edema though suspect this is noncardiogenic. Rule out infective endocarditis GI: OG tube to low intermittent wall suction. Initiate tube feeds when stabilized. FEN/RENAL: Acute kidney injury Acute hypokalemia Duong was inserted in the ED. Monitor intake and output. Monitor electrolytes. Replace electrolytes as indicated per ICU electrolyte replacement protocol. ID: Leukocytosis Acute community-acquired pneumonia. Severe sepsis this may be related to aspiration. However he has been having respiratory symptoms for a couple of weeks now despite azithromycin so do consider the possibility of post viral pneumonia. He has been screened for influenza which is negative. Continue with Zosyn 4.5 g IV every 6 hours, vancomycin, Levaquin. Obtain urine Legionella and pneumococcal antigens. Follow-up UA and culture. Follow-up blood culture. HEME: No acute hematologic issues. ENDO: Acute hyperglycemia Monitor bedside glucose every 4 hours and administer low-dose insulin sliding scale as indicated. PROPH: SCDs/Lovenox 40 mg subcu daily for DVT prophylaxis. Protonix 40 mg IV daily for stress ulcer prophylaxis. ACCESS: Peripheral IV providing adequate access at this time. Will place central venous line if needed. Full code Patient is critically ill with opioid overdose resulting in pneumonia and severe hypoxemic respiratory failure. She had he is at risk for further deterioration, worsening hypoxemia, shock. Critical care time 40 minutes exclusive of separately billable procedures.
[2017-12-04] MEDS: Propofol 1000 mg/100 ml Inj 1,000 MG/100 ML BOTTLE IV.CONT PRN ×2 (13:20→22:34)
--- NOTE | 2017-12-04 17:10 | ECHRPT ---
Indication: SHORTNESS OF BREATH CONCLUSIONS The left ventricular systolic function is normal with an estimated ejection fraction in the range of 60-65%. Normal left ventricular size. Wall thickness is normal. No regional wall motion abnormalities are present. There is trace tricuspid valve regurgitation. The estimated pulmonary arterial pressure is 25.1 mmHg. BP: / HR: Rhythm: Atrial fibrillation MEASUREMENTS (Male / Female) Normal Values Technical Quality:Good 2D ECHO LV Diastolic Diameter PLAX 4.6 cm 4.2 - 5.9 / 3.9 - 5.3 cm LV Systolic Diameter PLAX 3.4 cm IVS Diastolic Thickness 1.0 cm 0.6 - 1.0 / 0.6 - 0.9 cm LVPW Diastolic Thickness 1.0 cm 0.6 - 1.0 / 0.6 - 0.9 cm LV Relative Wall Thickness 0.4 RV Internal Dim ED PLAX 2.8 cm LVOT Diameter 1.8 cm LA Systolic Diameter LX 3.4 cm 3.0 - 4.0 / 2.7 - 3.8 cm M-MODE Aortic Root Diameter MM 2.0 cm LA Systolic Diameter MM 2.8 cm LA Ao Ratio MM 1.4 AV Cusp Separation MM 2.0 cm DOPPLER MV Area PHT 4.6 cm Mitral E Point Velocity 71.1 cm/s Mitral A Point Velocity 61.2 cm/s Mitral E to A Ratio 1.2 LV E' Lateral Velocity 10.0 cm/s Mitral E to LV E' Lateral Ratio 7.1 LV E' Septal Velocity 7.8 cm/s Mitral E to LV E' Septal Ratio 9.1 TR Peak Velocity 194.0 cm/s TR Peak Gradient 15.1 mmHg Right Atrial Pressure 10.0 mmHg Pulmonary Artery Systolic Pressu 25.1 mmHg Right Ventricular Systolic Press 25.1 mmHg PV Peak Velocity 88.2 cm/s PV Peak Gradient 3.1 mmHg FINDINGS LEFT VENTRICLE The left ventricular systolic function is normal with an estimated ejection fraction in the range of 60-65%. Normal left ventricular size. Wall thickness is normal. No regional wall motion abnormalities are present. RIGHT VENTRICLE Normal right ventricular size and systolic function. LEFT ATRIUM The left atrial size is normal. RIGHT ATRIUM The right atrial size is normal. ATRIAL SEPTUM Normal atrial septal thickness without atrial level shunting by limited color doppler interrogation. AORTA The aortic root and proximal ascending aorta are normal in size on limited imaging. MITRAL VALVE Structurally normal mitral valve. No mitral valve stenosis or regurgitation. AORTIC VALVE Trileaflet aortic valve. No aortic valve stenosis or regurgitation. TRICUSPID VALVE Structurally normal tricuspid valve. There is trace tricuspid valve regurgitation. The estimated pulmonary arterial pressure is 25.1 mmHg. PULMONARY VALVE No pulmonary valve regurgitation or stenosis. VESSELS The inferior vena cava is normal in size. PERICARDIUM No pericardial effusion. Mikel Mendiola MD (Electronically Signed) Final Date:04 December 2017 17:09
--- NOTE | 2017-12-04 19:30 | US ---
EXAM DATE: 12/04/2017 12:00 AM EDT AGE/SEX: 32 years / Male INDICATIONS: Evaluate common bile duct. CLINICAL DATA: This is the patient's initial encounter. Patient reports that signs and symptoms have been present for 1 day and indicates a pain score of Nonresponsive. MEDICAL/SURGICAL HISTORY: . GERD. IV drug use. Sepsis. Pneumonia. None. COMPARISON: . MEASUREMENTS: Liver:__ 19.9 cm. Common Bile Duct:__ 2mm. FINDINGS: Liver: Increased echotexture without focal lesion or ductal dilation. Portal Vein: Hepatopedal flow seen in portal vein. Common Duct: No intraluminal mass or stone visualized. Gallbladder: Demonstrates no wall thickening or pericholecystic fluid. No stones visualized. Pancreas: The visualized portions are within normal limits Right Kidney: Normal echotexture and cortical thickness. No mass or hydronephrosis. Other: None. CONCLUSION: 1. The common bile duct is within normal limits. 2. The liver is prominent in size with mild hepatic steatosis. Electronically signed by: Garrison De Paz MD 12/04/2017 7:29 PM EDT
--- NOTE | 2017-12-04 20:26 | CT ---
EXAM DATE: 12/04/2017 7:54 PM EDT AGE/SEX: 32 years / Male INDICATIONS: Respiratory failure; rule out septic emboli. Follow-up dense consolidation seen on CT a ngiogram. CLINICAL DATA: This is the patient's subsequent encounter. Patient reports that signs and symptoms h ave been present for 2 days and indicates a pain score of Nonresponsive. MEDICAL/SURGICAL HISTORY: Gastroesophageal reflux disease. Substance abuse, bronchitis, pneumonia None. RADIATION DOSE: 18.71 CTDI (mGy) COMPARISON: [facility], [facility]A PULMONARY W CONTRAST W 3D, 12/02/2017. . TECHNIQUE: Multiple contiguous axial images were obtained through the chest without contrast. Image s were obtained in suspended respiration using multiple row detector helical technique. Using automa yaneth exposure control and adjustment of the mA and/or kV according to patient size, radiation dose was kept as low as reasonably achievable to obtain optimal diagnostic quality images. DICOM format imag e data is available electronically for review and comparison. FINDINGS: Lungs: The lungs are symmetrically aerated. There are large areas of dense consolidation again noted in both lower lobes with air bronchograms. There is more patchy infiltrate in the posterior upper lo bes which appears mildly improved. There are multiple small scattered areas of consolidation in the u pper lobes and right middle lobe which are new. Several of these are nodular in appearance. Mediastinum: There is good visualization of the great vessels of the middle mediastinum. No evidenc e of mediastinal or hilar adenopathy/mass. The endotracheal tube and nasogastric tube remain in place . Mild cardiomegaly is again noted. Pleurae: No evidence of focal thickening or pleural effusion. Axillae: Unremarkable. Bony Structures: Unremarkable. Miscellaneous: The examination was extended to include the upper abdomen, and both adrenal glands ar e normal in size and configuration. CONCLUSION: 1. Dense consolidation remains in both lower lobes with air bronchograms. There is mild consolidatio n in the posterior upper lobes which appears mildly improved. 2. Multiple new small nodular areas of consolidative opacity in both lungs which are nonspecific. 3. Mild cardiomegaly. Electronically signed by: Garrison De Paz MD 12/04/2017 8:25 PM EDT
[2017-12-05] MEDS: Insulin NovoLOG Aspart Correctional Sugar Inj SQ SCH ×6 (00:36→20:49)
[2017-12-05] MEDS: Oral Hygiene Kit OROPHARYNG SCH ×4 (00:37→16:51)
[2017-12-05] MEDS: Sod Chloride 0.9% Inj 1,000 ML IV.CONT SCH ×2 (02:13→10:15)
[2017-12-05] MEDS: fentaNYL 10 mcg/mL Premix Drip 2,500 MCG/250 ML BAG IV.SIG PRN ×3 (03:03→22:54)
[2017-12-05] MEDS ORDERED: Pharmacy Ordered Lab Info OTHER ONE (03:45)
[2017-12-05] MEDS: Enoxaparin Inj 40 MG/0.4 ML Syringe SQ SCH (04:15)
[2017-12-05] MEDS: Vancomycin Inj 1,500 MG in Sodium Chlor 0.9% Inj 500 ML IV.SIG SCH ×2 (04:19→16:52)
[2017-12-05] MEDS: Chlorhexidine Gluconate 2% 1 Pack (2 Cloths) TOPICAL SCH (04:24)
--- NOTE | 2017-12-05 04:25 | XR ---
EXAM DATE: 12/05/2017 6:00 AM EDT AGE/SEX: 32 years / Male INDICATIONS: Shortness of breath, possible pulmonary disease. CLINICAL DATA: This is the patient's subsequent encounter. Patient reports that signs and symptoms h ave been present for 3 days and indicates a pain score of Nonresponsive. MEDICAL/SURGICAL HISTORY: Gastroesophageal reflux disease. Sepsis. None. COMPARISON: C, CHEST 1V SINGLE AP, 12/04/2017. . FINDINGS: Stable ETT and NGT. Lungs are hypoaerated with perihilar and mid to lower lung zone airspace disease, slightly progressed from prior exam. Cardiomegaly saw contours are within normal limits. Bony thorax is intact. CONCLUSION: 1. Stable ETT and NGT. 2. Worsening patchy perihilar and mid to lower lung zone bilateral airspace disease. Electronically signed by: Flavio Taylor MD 12/05/2017 4:24 AM EDT
[2017-12-05 04:57] LABS: Hematocrit 36.8 % (39.0-51.0); Hemoglobin 12.8 gm/dL (13.0-17.0); Mean Corpuscular Hemoglobin 29.8 pg (27.0-34.0); Mean Corpuscular Volume 85.3 fL (80.0-100.0); Platelet Count 151 th/mm3 (150-450); Red Blood Count 4.31 mil/mm3 (4.50-5.90); Red Cell Distribution Width 13.7 % (11.6-17.2); White Blood Count 8.5 th/mm3 (4.0-11.0)
[2017-12-05 05:18] LABS: Alanine Aminotransferase 22 U/L (12-78); Albumin 2.4 g/dL (3.4-5.0); Anion Gap 9 meq/L (5-15); Aspartate Aminotransferase 94 U/L (15-37); Blood Urea Nitrogen 11 mg/dL (7-18); Calcium 8.3 mg/dL (8.5-10.1); Chloride 111 meq/L (98-107); Glomerular Filtration Rate 89 mL/min (>89); Glucose,Random 80 mg/dL (74-106); Magnesium 2.1 mg/dL (1.5-2.5); Potassium 3.5 meq/L (3.5-5.1); Sodium 145 meq/L (136-145)
[2017-12-05] MEDS: Levofloxacin 500 mg Premix Inj 500 MG/100 ML PIGGYBACK IV.SIG SCH (05:25)
[2017-12-05 05:32] LABS: Alkaline Phosphatase 49 U/L (45-117); Total Protein 5.6 g/dL (6.4-8.2)
[2017-12-05] MEDS: Potassium Chloride 25 MEQ Effervescent Tablet PO PRN (05:48)
[2017-12-05] MEDS: Piperacil/Tazo 3.375 GM Premix 50 ML IV.SIG SCH ×3 (06:37→20:27)
--- NOTE | 2017-12-05 07:19 | P.PNCC ---
Subjective Subjective Remarks/Hospital Course: 32-year-old male complains of chest pain shortness of breath. Patient states that he has productive cough for the past 2 weeks. Patient was seen in emergency room 10 days ago and given prescription for Z-Jose. Patient states that he took a Z-Jose as directed. Patient states that he has persistent cough despite Z-Jose. denies any fever chills. Patient states that he shot up either heroin or Dilaudid this afternoon. Patient was found unresponsive. EMS was called. Patient was given Narcan 0.4 mg IV. Patient woke up. Patient still complaining of severe shortness of breath. Patient states that he has fever this evening. Patient denies any headache. Patient denies any neck pain. Patient complains of heaviness anterior chest wall. Patient denies abdominal pain. Patient denies nausea vomiting diarrhea. Patient denies any focal weakness or numbness of the extremity. Patient was given nonrebreathing mask on the way to the ED. 12/04: Remains intubated, heavily sedated for severe pneumonia and sepsis. Chest x-ray shows worsening infiltrates, WBC count 17 K. GPC in blood culture currently receiving antibiotics including vancomycin. 2D echo is pending at this time 12/05: Patient remains intubated heavily sedated for ventilator synchrony. WBC count is improved, however severe bilateral infiltrates persist on chest x-ray and CT of the chest. Sputum culture remains negative to date. I will proceed with bronchoscopy/BAL Objective Vital Signs / I&O: Vital Signs 12/04/17 07:53 12/04/17 08:00 12/04/17 09:00 Temperature 101.8 F H Pulse Rate 104 H 101 H 98 H Respiratory Rate 18 17 16 Blood Pressure 102/58 L 98/54 L Pulse Oximetry 98 95 12/04/17 10:00 12/04/17 11:00 12/04/17 11:06 Temperature Pulse Rate 91 H 87 Respiratory Rate 15 15 14 Blood Pressure 93/50 L 93/52 L Pulse Oximetry 97 98 98 12/04/17 11:15 12/04/17 11:30 12/04/17 11:45 Temperature Pulse Rate 105 H 88 89 Respiratory Rate 20 15 21 Blood Pressure 97/57 L 85/50 L 90/50 L Pulse Oximetry 98 96 98 12/04/17 12:00 12/04/17 12:15 12/04/17 12:30 Temperature 98.8 F Pulse Rate 86 82 84 Respiratory Rate 16 15 15 Blood Pressure 85/52 L 79/48 L 86/52 L Pulse Oximetry 96 94 L 93 L 12/04/17 12:45 12/04/17 13:00 12/04/17 13:15 Temperature Pulse Rate 83 89 84 Respiratory Rate 16 16 16 Blood Pressure 88/54 L 95/55 L 93/54 L Pulse Oximetry 94 L 94 L 94 L 12/04/17 13:30 12/04/17 13:45 12/04/17 14:00 Temperature Pulse Rate 83 80 80 Respiratory Rate 17 18 20 Blood Pressure 86/54 L 90/52 L 90/52 L Pulse Oximetry 95 96 96 12/04/17 14:15 12/04/17 14:30 12/04/17 14:41 Temperature Pulse Rate 83 84 83 Respiratory Rate 20 20 16 Blood Pressure 96/55 L 93/53 L Pulse Oximetry 96 96 12/04/17 14:45 12/04/17 14:58 12/04/17 15:00 Temperature Pulse Rate 81 83 Respiratory Rate 17 16 17 Blood Pressure 95/55 L 93/53 L Pulse Oximetry 97 97 97 12/04/17 15:15 12/04/17 15:30 12/04/17 15:45 Temperature Pulse Rate 84 86 84 Respiratory Rate 17 18 17 Blood Pressure 90/52 L 100/56 L 93/55 L Pulse Oximetry 97 98 99 12/04/17 16:00 12/04/17 16:15 12/04/17 16:30 Temperature 98.7 F Pulse Rate 84 82 82 Respiratory Rate 17 17 17 Blood Pressure 91/51 L 92/54 L 93/52 L Pulse Oximetry 100 94 L 93 L 12/04/17 16:45 12/04/17 17:00 12/04/17 17:15 Temperature Pulse Rate 82 81 81 Respiratory Rate 17 17 16 Blood Pressure 89/55 L 90/52 L 90/55 L Pulse Oximetry 94 L 93 L 93 L 12/04/17 17:30 12/04/17 17:45 12/04/17 18:00 Temperature Pulse Rate 81 81 81 Respiratory Rate 16 16 17 Blood Pressure 90/52 L 88/53 L 88/53 L Pulse Oximetry 93 L 93 L 92 L 12/04/17 18:30 12/04/17 19:00 12/04/17 19:30 Temperature Pulse Rate 82 81 81 Respiratory Rate 17 16 17 Blood Pressure 87/53 L 90/50 L 91/52 L Pulse Oximetry 92 L 93 L 99 12/04/17 20:00 12/04/17 20:04 12/04/17 20:15 Temperature 99.4 F Pulse Rate 82 92 H 92 H Respiratory Rate 17 12 16 Blood Pressure 92/52 L 95/55 L Pulse Oximetry 100 100 100 12/04/17 20:27 12/04/17 20:30 12/04/17 20:45 Temperature Pulse Rate 100 H 98 H 89 Respiratory Rate 17 15 15 Blood Pressure 103/58 L 102/59 L 97/56 L Pulse Oximetry 96 95 95 12/04/17 20:52 12/04/17 21:00 12/04/17 21:15 Temperature Pulse Rate 87 88 88 Respiratory Rate 16 16 15 Blood Pressure 96/54 L 93/53 L Pulse Oximetry 96 96 96 12/04/17 21:30 12/04/17 21:45 12/04/17 22:00 Temperature 99.0 F Pulse Rate 86 84 85 Respiratory Rate 16 15 14 Blood Pressure 94/52 L 93/54 L 92/53 L Pulse Oximetry 97 97 98 12/04/17 22:15 12/04/17 22:30 12/04/17 22:45 Temperature Pulse Rate 84 85 84 Respiratory Rate 14 14 14 Blood Pressure 96/55 L 93/53 L 95/54 L Pulse Oximetry 99 99 99 12/04/17 23:00 12/04/17 23:15 12/04/17 23:30 Temperature Pulse Rate 82 84 83 Respiratory Rate 14 14 14 Blood Pressure 98/55 L 94/52 L 95/52 L Pulse Oximetry 99 99 99 12/04/17 23:44 12/04/17 23:45 12/05/17 00:00 Temperature 99.1 F Pulse Rate 83 84 86 Respiratory Rate 14 14 15 Blood Pressure 94/53 L 95/53 L Pulse Oximetry 99 99 12/05/17 00:15 12/05/17 00:30 12/05/17 00:45 Temperature Pulse Rate 87 87 86 Respiratory Rate 17 16 15 Blood Pressure 103/58 L 101/55 L 99/58 L Pulse Oximetry 98 97 97 12/05/17 01:00 12/05/17 01:15 12/05/17 01:30 Temperature 98.8 F Pulse Rate 86 86 85 Respiratory Rate 15 15 14 Blood Pressure 96/54 L 94/55 L 91/54 L Pulse Oximetry 98 98 99 12/05/17 01:45 12/05/17 02:00 12/05/17 02:15 Temperature Pulse Rate 83 84 83 Respiratory Rate 14 14 14 Blood Pressure 90/54 L 91/52 L 91/50 L Pulse Oximetry 98 99 98 12/05/17 02:30 12/05/17 02:45 12/05/17 03:00 Temperature Pulse Rate 82 82 82 Respiratory Rate 14 14 14 Blood Pressure 90/51 L 88/54 L 89/55 L Pulse Oximetry 99 99 99 12/05/17 03:15 12/05/17 03:30 12/05/17 03:39 Temperature Pulse Rate 81 88 85 Respiratory Rate 14 15 14 Blood Pressure 88/50 L 93/53 L Pulse Oximetry 99 97 12/05/17 03:45 12/05/17 04:00 12/05/17 04:01 Temperature 99.0 F Pulse Rate 96 H 101 H 99 H Respiratory Rate 15 16 17 Blood Pressure 89/53 L 99/62 L Pulse Oximetry 98 98 99 12/05/17 04:10 12/05/17 04:16 12/05/17 04:18 Temperature Pulse Rate 100 H Respiratory Rate 17 18 17 Blood Pressure 103/55 L Pulse Oximetry 98 98 12/05/17 05:00 12/05/17 05:37 12/05/17 05:38 Temperature Pulse Rate 91 H 86 86 Respiratory Rate 16 14 17 Blood Pressure 94/52 L 88/51 L Pulse Oximetry 94 L 99 98 12/05/17 05:45 12/05/17 06:00 12/05/17 06:15 Temperature 99.0 F Pulse Rate 84 84 82 Respiratory Rate 17 16 16 Blood Pressure 92/55 L 95/52 L 95/53 L Pulse Oximetry 99 99 99 12/05/17 06:30 Temperature Pulse Rate 81 Respiratory Rate 16 Blood Pressure 95/54 L Pulse Oximetry 100 Intake & Output 12/04/17 12/05/17 12/05/17 18:59 06:59 18:59 Intake Total 1510 / 1510 2430 / 2430 Output Total 650 / 650 950 / 950 Balance 860 / 860 1480 / 1480 Weight 105 kg Intake: IV 1450 / 1450 2330 / 2330 Versed Inj 50 mg In 50 ml @ 2 100 / 100 MG/HR 2 mls/hr IV.CONT TITRATE PRN Rx#:[id number] Diprivan 1000 mg/100 ml Inj 1, 50 / 50 100 / 100 000 mg In 100 ml @ 5 MCG/KG/MIN 3.402 mls/hr IV.CONT TITRATE PRN Rx#:[id number] NS Inj 1,000 ML @ 125 mls/hr IV 1000 / 1000 1000 / 1000 .CONT .Q8H ALEXANDER Rx#:[id number] Levaquin 500 mg Premix Inj 500 100 / 100 mg In 100 ml @ 100 mls/hr IV. SIG Q24H ALEXANDER Rx#:[id number] Zosyn 3.375 GM Premix 50 ML @ 50 / 50 100 / 100 100 mls/hr IV.SIG Q6H ALEXANDER Rx#: [id number] Vancomycin Inj 1,500 MG In NS 1030 / 1030 Inj 500 ML @ 250 mls/hr IV.SIG Q12H ALEXANDER Rx#:[id number] fentaNYL 10 mcg/mL Premix Drip 250 / 250 0 / 0 2,500 mcg In 250 ml @ 50 MCG/HR 5 mls/hr IV.SIG TITRATE PRN Rx #:[id number] Water Bolus Amount 60 / 60 100 / 100 Output: Urine Amount (Catheter) 650 / 650 700 / 700 Straight 650 / 650 700 / 700 Gastric Drainage 250 / 250 Oral Orogastric Tube 250 / 250 Result Diagrams: 12/05/17 04:22 12/05/17 04:22 Objective Remarks: GENERAL: Well-nourished, well-developed patient who is orotracheally intubated and sedated. SKIN: Warm and dry. HEAD: Atraumatic. Normocephalic. EYES: Pupils equal and round, 2 mm and reactive bilaterally.. No scleral icterus. There is conjunctival injection. ENT: No nasal bleeding or discharge. Mucous membranes pink and moist. NECK: Trachea midline. No JVD. CARDIOVASCULAR: Tachycardic, regular, sinus tach on monitor. No murmurs rubs or gallops. RESPIRATORY: Orotracheally intubated, Rhonchorous breath sounds bilaterally with bilateral wheeze. Few rales. GASTROINTESTINAL: Abdomen soft, non-tender, nondistended. Bowel sounds present. MUSCULOSKELETAL: Extremities without clubbing, cyanosis, or edema. No obvious deformities. NEUROLOGICAL: Sedated for ventilator synchrony with severe pneumonia. Positive facial grimace with deep noxious stimuli. Moves all extremities. No apparent focal deficit. Does not follow commands. Assessment and Plan - Assessment and Plan Plan: NEURO: IV drug use (opioid) Currently on propofol, fentanyl and Versed for sedation. DC Versed Target RASS -2/maintenance of ventilator synchrony. Was responsive following Narcan prior to intubation according to the notes Start daily sedation location after bronchoscopy RESP: Acute hypoxemic respiratory failure Bilateral pneumonia ARDS/noncardiogenic pulmonary edema CT pulmonary angiogram negative for PE. There is bilateral lower lobe consolidation. There is pulmonary edema which may be secondary to opioid overdose. Repeat CT of the chest 12/04 shows predominantly consolidative changes indicating pneumonia ACV TV 575/rate 16/PEEP 8/FiO2 40%. Wean FiO2 as tolerated. Ventilator bundle, DuoNeb every 4 hours, Albuterol every 2 hours as needed Patient continues to have severe pneumonia not clinically stable for CPAP Sputum culture remains negative, check bronchoscopy and BAL CV: Monitor hemodynamics Initial troponin is negative. Obtain 2D echo in view of pulmonary edema though suspect this is noncardiogenic- EF 60-65% No evidence of endocarditis Diuresis to dry weight with Lasix 20 mg IV every 12 GI: OG tube to low intermittent wall suction. Initiate tube feeds with Jevity, bowel regimen FEN/RENAL: Acute kidney injury Acute hypokalemia Duong was inserted in the ED. Monitor intake and output. Monitor electrolytes. Replace electrolytes as indicated per ICU electrolyte replacement protocol. ID: Acute community-acquired pneumonia, bilateral. Severe sepsis Leukocytosis Most likely aspiration pneumonia, however he has been having respiratory symptoms for a couple of weeks now despite azithromycin so do consider the possibility of post viral pneumonia. He has been screened for influenza which is negative. Bronchoscopy with BAL today Continue with Zosyn 4.5 g IV every 6 hours, vancomycin, Levaquin. Negative urine Legionella and pneumococcal antigens. Follow-up UA and culture. Follow-up blood culture-GPC is coag negative staph which is probably contaminant. HEME: No acute hematologic issues. ENDO: Acute hyperglycemia Now hypoglycemic Monitor bedside glucose every 4 hours and administer low-dose insulin sliding scale as indicated. Start tube feeds with Jevity today PROPH: SCDs/Lovenox 40 mg subcu daily for DVT prophylaxis. Protonix 40 mg IV daily for stress ulcer prophylaxis. ACCESS: Peripheral IV providing adequate access at this time. Will place central venous line if needed. Full code Patient is critically ill with opioid overdose resulting in pneumonia and severe hypoxemic respiratory failure. He is at risk for further deterioration, worsening hypoxemia, shock. Critical care time 35 minutes exclusive of separately billable procedures. Code Status: Full
[2017-12-05] MEDS: Propofol 1000 mg/100 ml Inj 1,000 MG/100 ML BOTTLE IV.CONT PRN ×3 (08:11→20:55)
[2017-12-05] MEDS: Pantoprazole Inj 40 MG Vial IV.PUSH SCH (08:12)
[2017-12-05] MEDS: Senna/Docusate Sodium 8.6/50 MG Tablet PO SCH ×2 (08:13→20:56)
--- NOTE | 2017-12-05 11:20 | P.DIET ---
Nutritional Evaluation Type of nutrition evaluation: initial Nutrition consult regarding: Tube Feeding Objective - Diagnosis Respiratory Failure, Pneumonia, Substance Abuse - Objective Body Mass Index: 32.3 % IBW: 134 (IBW - 172#) Body Weight Used for Calculations: Upper end of IBW (86 kg) Energy Needs - Lower Range (kCal/kg): 25 Energy Needs - Upper Range (kCal/kg): 30 Lower Limit kCal/kg (kCals): 2,150 Upper Limit kCal/kg (kCals): 2,580 Lower Limit Protein Factor (Grams per Kg): 1.0 Upper Limit Protein Factor (Grams per Kg): 1.5 Lower Protein Needs (Protein): 86 Upper Protein Needs (Protein): 129 Dietitian Reviewed in Medical Record: Curent medications, Labs, Medical history , Tube feeding Diet Order: NPO Assessment Assessment: Pt is at high nutrition risk 2' to dx and the need for TFing. He is currently intubated and sedated and has a TF order for Jevity 1.5 goal rate of 50 mls/hr. To meet needs with Jevity 1.5, recommend goal rate of 65 mls/hr to provide 2340 kcals, 99.5 gms protein and 1186 mls of free water. Some additional kcals will be provided by propofol (1.1 kcal/ml). Recommendations: Jevity 1.5 @ 65 mls/hr goal Dietitian to Monitor: Lab values, Intake & Output, Tube feeding tolerance, Weight change, Medical course
--- NOTE | 2017-12-05 14:30 | P.PCN ---
Date of procedure: 12/05/17 Pre-op diagnosis: Bilateral pneumonia/ARDS Post-op diagnosis: same Procedure: Procedure: Diagnostic and therapeutic flexible bronchoscopy Narrative: Timeout performed, patient suitably identified. Patient already intubated in the orotracheal route and on mechanical ventilation. Usual ICU monitoring devices are in place. Currently on continuous propofol and fentanyl infusions, 50 mg rocuronium administered intravenously. Through the ventilator circuit with an elbow placed for sealed sidehole access the bronchoscope was delivered into the main trachea. The trachea and major stem bronchi were clean and without irritation. Left side was inspected first, the segmental and subsegmental bronchi in the left lower and left upper lobes contained thick yellow secretions which were lavaged and suctioned out. BAL performed and specimen collected from the left lower lobe. Mild inflammation in left lower and upper airway. Bronchoscope was then introduced into the right side right upper lobe was occluded with thick yellow secretions which were suctioned out. There was moderate secretions in the segmental and subsegmental bronchi. This was removed with multiple saline lavages and BAL specimen was collected. The left lower lobe and middle lobe also contained moderate secretions in the subsegmental bronchi which were lavaged and suctioned out. Oxygen saturation was maintained at greater than 96% throughout the procedure. Anesthesia: GETA Surgeon: Johana Roger Estimated blood loss (mL): 0 Pathology: none sent Condition: critical Disposition: ICU
[2017-12-05] MEDS: Chlorhexidine 0.12% Oral Kit 15 ML UDC OROPHARYNG SCH ×2 (14:51→20:56)
[2017-12-05] MEDS: Beneprotein Powder Packet G-TUBE SCH ×2 (14:51→20:56)
--- NOTE | 2017-12-05 16:19 | ECG ---
Date Performed: 12/04/2017 Time Performed: 11:46:36 PTAGE: 32 years EKG: Sinus rhythm Inferior T wave changes are nonspecific Borderline ECG PREVIOUS TRACING :12/02/2017 @21.36 Since the previous tracing, no significant change noted DOCTOR: Asya Hines Interpretating Date/Time 12/05/2017 16:18:20
--- NOTE | 2017-12-05 16:28 | XR ---
EXAM DATE: 12/05/2017 3:54 PM EDT AGE/SEX: 32 years / Male INDICATIONS: S/p bronchoscopy CLINICAL DATA: This is the patient's initial encounter. Patient reports that signs and symptoms have been present for 1 day and indicates a pain score of Nonresponsive. MEDICAL/SURGICAL HISTORY: None. None. COMPARISON: [facility] [place], CHEST 1V SINGLE AP, 12/05/2017. . FINDINGS: A single AP view of the chest demonstrates no interval change. Bilateral pulmonary infiltrates are ag ain noted. Low lung volumes. No effusion. Heart is normal in size. Tip of endotracheal tube 4 cm from the lissette. Nasogastric tube coiled in the stomach with the tip in the fundus. No pneumothorax or pn eumomediastinum observed. CONCLUSION: Unchanged bilateral pulmonary infiltrates. Electronically signed by: Ralph Barton MD 12/05/2017 4:27 PM EDT
[2017-12-05 20:26] LABS: Bacteria,Urine Few /hpf; Bilirubin,Urine Negative (Negative); Clarity,Urine Hazy (Clear); Color,Urine Yellow (Yellw/Straw); Glucose,Urine (UA) Negative (Negative); Leukocyte Esterase,Urine Negative (Negative); Mucus,Urine Few /lpf (Occasional); Nitrite,Urine Negative (Negative); Specific Gravity,Urine 1.008 (1.002-1.035)
[2017-12-06] MEDS: Piperacil/Tazo 3.375 GM Premix 50 ML IV.SIG SCH ×4 (00:01→17:04)
[2017-12-06] MEDS: Insulin NovoLOG Aspart Correctional Sugar Inj SQ SCH ×6 (00:01→20:28)
[2017-12-06] MEDS: Oral Hygiene Kit OROPHARYNG SCH ×4 (00:01→17:04)
[2017-12-06] MEDS: Chlorhexidine Gluconate 2% 1 Pack (2 Cloths) TOPICAL SCH (04:09)
[2017-12-06] MEDS: Vancomycin Inj 1,500 MG in Sodium Chlor 0.9% Inj 500 ML IV.SIG SCH ×2 (04:09→16:03)
[2017-12-06] MEDS: Enoxaparin Inj 40 MG/0.4 ML Syringe SQ SCH (04:09)
--- NOTE | 2017-12-06 04:58 | XR ---
EXAM DATE: 12/06/2017 6:00 AM EDT AGE/SEX: 32 years / Male INDICATIONS: Short of breath. CLINICAL DATA: This is the patient's subsequent encounter. Patient reports that signs and symptoms h ave been present for 2 days and indicates a pain score of 0/10. MEDICAL/SURGICAL HISTORY: Non-responsive. Non-responsive. COMPARISON: [facility], CHEST 1V SINGLE AP, 12/05/2017. . FINDINGS: Stable ETT and NGT. Persistent patchy bilateral airspace disease most prominently in the right lower lung zone. Cardiomediastinal contours are stable. Remainder of exam is unchanged. CONCLUSION: 1. Stable ETT and NGT. 2. Stable patchy bilateral airspace disease most prominent in the right lower lung zone. Electronically signed by: Flavio Taylor MD 12/06/2017 4:57 AM EDT
[2017-12-06] MEDS: Levofloxacin 500 mg Premix Inj 500 MG/100 ML PIGGYBACK IV.SIG SCH (05:06)
[2017-12-06] MEDS: Propofol 1000 mg/100 ml Inj 1,000 MG/100 ML BOTTLE IV.CONT PRN ×2 (06:14→22:34)
[2017-12-06 06:19] LABS: Albumin 2.3 g/dL (3.4-5.0); Anion Gap 11 meq/L (5-15); Blood Urea Nitrogen 12 mg/dL (7-18); Calcium 8.7 mg/dL (8.5-10.1); Carbon Dioxide 24.5 meq/L (21.0-32.0); Chloride 110 meq/L (98-107); Glomerular Filtration Rate 55 mL/min (>89); Glucose,Random 91 mg/dL (74-106); Potassium 3.3 meq/L (3.5-5.1); Sodium 145 meq/L (136-145)
[2017-12-06 06:20] LABS: Alanine Aminotransferase 26 U/L (12-78); Aspartate Aminotransferase 94 U/L (15-37)
[2017-12-06 06:22] LABS: Alkaline Phosphatase 55 U/L (45-117); Total Protein 6.2 g/dL (6.4-8.2)
[2017-12-06 06:50] LABS: Hematocrit 36.7 % (39.0-51.0); Hemoglobin 12.9 gm/dL (13.0-17.0); Mean Corpuscular HGB Conc 35.1 % (32.0-36.0); Mean Corpuscular Hemoglobin 29.6 pg (27.0-34.0); Mean Corpuscular Volume 84.5 fL (80.0-100.0); Mean Platelet Volume 8.1 fL (7.0-11.0); Platelet Count 181 th/mm3 (150-450); Red Blood Count 4.35 mil/mm3 (4.50-5.90); Red Cell Distribution Width 13.6 % (11.6-17.2); White Blood Count 6.4 th/mm3 (4.0-11.0)
[2017-12-06] MEDS: Chlorhexidine 0.12% Oral Kit 15 ML UDC OROPHARYNG SCH ×2 (08:00→20:28)
[2017-12-06] MEDS: Pantoprazole Inj 40 MG Vial IV.PUSH SCH (08:01)
[2017-12-06] MEDS: Senna/Docusate Sodium 8.6/50 MG Tablet PO SCH ×2 (08:02→20:29)
[2017-12-06] MEDS: Potassium Chlor 20 mEq Premix 20 MEQ/100 ML PIGGYBACK IV.SIG PRN ×2 (08:08→11:00)
[2017-12-06] MEDS: fentaNYL 10 mcg/mL Premix Drip 2,500 MCG/250 ML BAG IV.SIG PRN ×2 (08:56→17:03)
[2017-12-06] MEDS: Beneprotein Powder Packet G-TUBE SCH ×3 (09:00→17:04)
--- NOTE | 2017-12-06 09:50 | P.PNCC ---
Subjective Subjective Remarks/Hospital Course: 32-year-old male complains of chest pain shortness of breath. Patient states that he has productive cough for the past 2 weeks. Patient was seen in emergency room 10 days ago and given prescription for Z-Jose. Patient states that he took a Z-Jose as directed. Patient states that he has persistent cough despite Z-Jose. denies any fever chills. Patient states that he shot up either heroin or Dilaudid this afternoon. Patient was found unresponsive. EMS was called. Patient was given Narcan 0.4 mg IV. Patient woke up. Patient still complaining of severe shortness of breath. Patient states that he has fever this evening. Patient denies any headache. Patient denies any neck pain. Patient complains of heaviness anterior chest wall. Patient denies abdominal pain. Patient denies nausea vomiting diarrhea. Patient denies any focal weakness or numbness of the extremity. Patient was given nonrebreathing mask on the way to the ED. 12/04: Remains intubated, heavily sedated for severe pneumonia and sepsis. Chest x-ray shows worsening infiltrates, WBC count 17 K. GPC in blood culture currently receiving antibiotics including vancomycin. 2D echo is pending at this time 12/05: Patient remains intubated heavily sedated for ventilator synchrony. WBC count is improved, however severe bilateral infiltrates persist on chest x-ray and CT of the chest. Sputum culture remains negative to date. I will proceed with bronchoscopy/BAL 12/06: Remains intubated sedated for vent synchrony, IV Lasix started yesterday with 7.7 L output in 24 hours. Chest x-ray with improving bilateral infiltrates on my review. Patient had bronchoscopy with BAL sent yesterday. Objective Vital Signs / I&O: Vital Signs 12/05/17 10:00 12/05/17 12:00 12/05/17 12:03 Temperature 98.4 F Pulse Rate 83 88 94 H Respiratory Rate 20 15 Blood Pressure 107/63 Pulse Oximetry 100 12/05/17 14:00 12/05/17 14:55 12/05/17 15:55 Temperature Pulse Rate 69 93 H Respiratory Rate 16 20 Blood Pressure Pulse Oximetry 96 12/05/17 16:00 12/05/17 18:00 12/05/17 18:35 Temperature 98 F Pulse Rate 96 H 72 74 Respiratory Rate 20 20 Blood Pressure 109/63 115/74 Pulse Oximetry 100 100 12/05/17 18:40 12/05/17 18:45 12/05/17 18:50 Temperature Pulse Rate 74 74 73 Respiratory Rate 20 20 20 Blood Pressure 114/75 114/76 114/76 Pulse Oximetry 100 100 100 12/05/17 18:55 12/05/17 19:00 12/05/17 19:05 Temperature 98.4 F Pulse Rate 73 73 73 Respiratory Rate 20 20 20 Blood Pressure 113/76 115/77 114/77 Pulse Oximetry 100 100 100 12/05/17 19:10 12/05/17 19:15 12/05/17 19:20 Temperature Pulse Rate 73 73 73 Respiratory Rate 20 20 20 Blood Pressure 113/78 112/76 111/77 Pulse Oximetry 100 100 100 12/05/17 19:25 12/05/17 19:30 12/05/17 19:35 Temperature Pulse Rate 73 73 73 Respiratory Rate 20 20 20 Blood Pressure 113/77 114/77 114/77 Pulse Oximetry 100 100 100 12/05/17 19:40 12/05/17 19:45 12/05/17 19:50 Temperature Pulse Rate 73 73 73 Respiratory Rate 20 20 20 Blood Pressure 115/78 114/77 115/77 Pulse Oximetry 100 100 100 12/05/17 19:55 12/05/17 20:00 12/05/17 20:05 Temperature Pulse Rate 73 73 72 Respiratory Rate 20 20 20 Blood Pressure 114/77 114/76 113/77 Pulse Oximetry 100 100 100 12/05/17 20:10 12/05/17 20:15 12/05/17 20:20 Temperature Pulse Rate 73 73 73 Respiratory Rate 20 20 20 Blood Pressure 114/75 114/77 114/78 Pulse Oximetry 100 100 100 12/05/17 20:25 12/05/17 20:30 12/05/17 20:35 Temperature Pulse Rate 73 73 74 Respiratory Rate 20 20 20 Blood Pressure 114/77 113/77 112/77 Pulse Oximetry 100 100 99 12/05/17 20:40 12/05/17 22:00 12/05/17 22:05 Temperature Pulse Rate 82 80 80 Respiratory Rate 20 20 20 Blood Pressure 112/66 111/65 Pulse Oximetry 98 97 96 12/05/17 22:10 12/05/17 22:15 10/01/18 22:20 Temperature Pulse Rate 80 80 79 Respiratory Rate 20 20 20 Blood Pressure 109/66 110/68 108/66 Pulse Oximetry 96 96 97 12/05/17 22:25 12/05/17 22:30 12/05/17 22:35 Temperature Pulse Rate 79 79 78 Respiratory Rate 20 20 20 Blood Pressure 106/66 107/66 109/68 Pulse Oximetry 96 97 96 12/05/17 22:40 12/05/17 22:45 12/05/17 22:50 Temperature Pulse Rate 78 78 77 Respiratory Rate 20 20 20 Blood Pressure 107/67 107/67 107/69 Pulse Oximetry 96 96 97 12/05/17 22:55 12/05/17 23:00 12/05/17 23:05 Temperature Pulse Rate 77 76 76 Respiratory Rate 20 20 20 Blood Pressure 109/70 110/69 110/70 Pulse Oximetry 97 98 98 12/05/17 23:10 12/05/17 23:15 12/05/17 23:20 Temperature Pulse Rate 75 75 75 Respiratory Rate 20 20 20 Blood Pressure 109/71 109/72 109/72 Pulse Oximetry 98 98 98 12/05/17 23:25 12/05/17 23:30 12/05/17 23:35 Temperature Pulse Rate 75 75 75 Respiratory Rate 20 20 20 Blood Pressure 110/71 109/71 107/70 Pulse Oximetry 98 98 98 12/05/17 23:40 12/05/17 23:45 12/05/17 23:50 Temperature Pulse Rate 75 75 74 Respiratory Rate 20 20 20 Blood Pressure 108/70 109/70 109/70 Pulse Oximetry 98 98 98 12/05/17 23:55 12/06/17 00:00 12/06/17 00:25 Temperature 98.8 F Pulse Rate 74 75 74 Respiratory Rate 20 20 20 Blood Pressure 107/72 109/73 Pulse Oximetry 99 99 12/06/17 00:26 12/06/17 02:35 12/06/17 02:40 Temperature Pulse Rate 92 H 87 Respiratory Rate 20 20 20 Blood Pressure 110/69 108/68 Pulse Oximetry 98 98 98 12/06/17 02:45 12/06/17 02:50 12/06/17 02:55 Temperature Pulse Rate 82 82 93 H Respiratory Rate 20 20 20 Blood Pressure 105/66 106/66 118/69 Pulse Oximetry 99 99 99 12/06/17 03:00 12/06/17 03:05 12/06/17 03:10 Temperature Pulse Rate 97 H 85 84 Respiratory Rate 20 20 20 Blood Pressure 120/75 107/62 104/58 L Pulse Oximetry 98 99 99 12/06/17 03:15 12/06/17 03:20 12/06/17 03:25 Temperature Pulse Rate 84 85 106 H Respiratory Rate 20 20 22 Blood Pressure 103/58 L 101/56 L 121/72 Pulse Oximetry 99 99 97 12/06/17 03:30 12/06/17 03:35 12/06/17 03:40 Temperature Pulse Rate 96 H 91 H 100 H Respiratory Rate 20 20 20 Blood Pressure 114/62 118/63 122/63 Pulse Oximetry 99 98 97 12/06/17 03:45 12/06/17 03:50 12/06/17 03:55 Temperature Pulse Rate 90 87 87 Respiratory Rate 20 20 20 Blood Pressure 108/57 L 105/60 101/57 L Pulse Oximetry 97 97 98 12/06/17 04:00 12/06/17 04:05 12/06/17 04:10 Temperature 99.3 F Pulse Rate 83 84 83 Respiratory Rate 20 20 20 Blood Pressure 99/57 L 97/55 L 101/57 L Pulse Oximetry 97 97 97 12/06/17 04:15 12/06/17 04:20 12/06/17 04:25 Temperature Pulse Rate 84 84 80 Respiratory Rate 20 20 20 Blood Pressure 106/62 102/60 103/60 Pulse Oximetry 99 98 98 12/06/17 04:30 12/06/17 04:35 12/06/17 04:40 Temperature Pulse Rate 82 80 79 Respiratory Rate 20 20 20 Blood Pressure 100/58 L 99/57 L 104/61 Pulse Oximetry 97 96 97 12/06/17 04:45 12/06/17 04:50 12/06/17 04:55 Temperature Pulse Rate 80 79 79 Respiratory Rate 20 20 20 Blood Pressure 106/63 104/65 103/62 Pulse Oximetry 98 99 98 12/06/17 04:57 12/06/17 05:00 12/06/17 05:05 Temperature Pulse Rate 79 79 79 Respiratory Rate 20 20 20 Blood Pressure 105/64 108/67 Pulse Oximetry 99 99 100 12/06/17 05:10 12/06/17 05:15 12/06/17 05:20 Temperature Pulse Rate 80 81 83 Respiratory Rate 20 20 20 Blood Pressure 105/58 L 103/57 L 102/55 L Pulse Oximetry 100 99 98 12/06/17 05:25 12/06/17 05:30 12/06/17 05:35 Temperature Pulse Rate 85 83 80 Respiratory Rate 20 20 20 Blood Pressure 104/59 L 106/58 L 111/61 Pulse Oximetry 98 99 100 12/06/17 05:40 12/06/17 05:45 12/06/17 05:50 Temperature Pulse Rate 80 80 79 Respiratory Rate 20 20 20 Blood Pressure 111/62 110/62 113/65 Pulse Oximetry 100 100 100 12/06/17 05:55 12/06/17 06:00 12/06/17 06:05 Temperature Pulse Rate 97 H 91 H 86 Respiratory Rate 20 20 20 Blood Pressure 123/67 112/65 108/62 Pulse Oximetry 99 99 100 12/06/17 08:16 12/06/17 08:47 Temperature Pulse Rate 86 Respiratory Rate 20 20 Blood Pressure Pulse Oximetry 97 Intake & Output 12/05/17 12/06/17 12/06/17 18:59 06:59 18:59 Intake Total 2240 / 2240 2604 / 2604 250 / 250 Output Total 3700 / 3700 4000 / 4000 Balance -1460 / -1460 -1396 / -1396 250 / 250 Weight 101.5 kg Intake: IV 2090 / 2090 2215 / 2215 250 / 250 Versed Inj 50 mg In 50 ml @ 2 25 / 25 MG/HR 2 mls/hr IV.CONT TITRATE PRN Rx#:[id number] Diprivan 1000 mg/100 ml Inj 1, 200 / 200 200 / 200 000 mg In 100 ml @ 5 MCG/KG/MIN 3.402 mls/hr IV.CONT TITRATE PRN Rx#:[id number] NS Inj 1,000 ML @ 125 mls/hr IV 1000 / 1000 .CONT .Q8H [facility] Rx#:[id number] Levaquin 500 mg Premix Inj 500 100 / 100 mg In 100 ml @ 100 mls/hr IV. SIG Q24H [facility] Rx#:[id number] Zosyn 3.375 GM Premix 50 ML @ 100 / 100 150 / 150 100 mls/hr IV.SIG Q6H [facility] Rx#: [id number] Vancomycin Inj 1,500 MG In NS 515 / 515 515 / 515 Inj 500 ML @ 250 mls/hr IV.SIG Q12H [facility] Rx#:[id number] fentaNYL 10 mcg/mL Premix Drip 250 / 250 250 / 250 250 / 250 2,500 mcg In 250 ml @ 50 MCG/HR 5 mls/hr IV.SIG TITRATE PRN Rx #:[id number] Tube Feeding 109 / 109 Water Bolus Amount 150 / 150 280 / 280 Output: Urine Amount (Catheter) 3700 / 3700 4000 / 4000 Indwelling Urethral Catheter 3700 / 3700 4000 / 4000 Result Diagrams: 12/06/17 05:59 12/06/17 03:52 Objective Remarks: GENERAL: Well-nourished, well-developed patient who is orotracheally intubated and sedated. SKIN: Warm and dry. HEAD: Atraumatic. Normocephalic. EYES: Pupils equal and round, 2 mm and reactive bilaterally. No scleral icterus. There is conjunctival injection. ENT: No nasal bleeding or discharge. Mucous membranes pink and moist. NECK: Trachea midline. No JVD. CARDIOVASCULAR: Tachycardic, regular, sinus tach on monitor. No murmurs rubs or gallops. RESPIRATORY: Orotracheally intubated, Rhonchorous breath sounds bilaterally with bilateral wheeze. Few rales. GASTROINTESTINAL: Abdomen soft, non-tender, nondistended. Bowel sounds present. MUSCULOSKELETAL: Extremities without clubbing, cyanosis, or edema. No obvious deformities. NEUROLOGICAL: Sedated for ventilator synchrony with severe pneumonia. Positive facial grimace with deep noxious stimuli. Moves all extremities. No apparent focal deficit. Does not follow commands. Assessment and Plan - Assessment and Plan Plan: NEURO: IV drug use (opioid) Currently on propofol, fentanyl for sedation. Start Precedex to facilitate ventilator weaning Target RASS -2/maintenance of ventilator synchrony. Was responsive following Narcan prior to intubation according to the notes Start daily sedation vacation RESP: Acute hypoxemic respiratory failure Bilateral pneumonia ARDS CT pulmonary angiogram negative for PE. There is bilateral lower lobe consolidation. There is pulmonary edema which may be secondary to opioid overdose. Repeat CT of the chest 12/04 shows predominantly consolidative changes indicating pneumonia ACV TV 575/rate 16/PEEP 8/FiO2 40%. Wean FiO2 as tolerated. Start spontaneous breathing trials Ventilator bundle, DuoNeb every 4 hours, Albuterol every 2 hours as needed Sputum culture remains negative, status post bronchoscopy and BAL yesterday 12/05 CV: Monitor hemodynamics Initial troponin is negative. Obtain 2D echo in view of pulmonary edema though suspect this is noncardiogenic- EF 60-65% No evidence of endocarditis Diuresis to dry weight with Lasix 20 mg IV every 12, because of creatinine elevation decrease Lasix to daily with IV albumin GI: OG tube with Jevity, bowel regimen FEN/RENAL: Acute kidney injury Acute hypokalemia Duong was inserted in the ED. Monitor intake and output. Monitor electrolytes. Replace electrolytes as indicated per ICU electrolyte replacement protocol. IV Lasix with IV albumin as above Creatinine has increased to 1.4 with aggressive diuresis, Lasix dose reduced ID: Acute community-acquired pneumonia, bilateral. Severe sepsis Leukocytosis Most likely aspiration pneumonia, however he has been having respiratory symptoms for a couple of weeks now despite azithromycin so do consider the possibility of post viral pneumonia. He has been screened for influenza which is negative. Bronchoscopy with BAL today Continue with Zosyn 4.5 g IV every 6 hours, vancomycin, Levaquin. DC vanc in 24 hrs if BAL negative Negative urine Legionella and pneumococcal antigens. Follow-up UA and culture. Follow-up blood culture-Coag negative staph which is probably contaminant. HEME: No acute hematologic issues. ENDO: Acute hyperglycemia Now hypoglycemic Monitor bedside glucose every 4 hours and administer low-dose insulin sliding scale as indicated. Tube feeds with Jevity today PROPH: SCDs/Lovenox 40 mg subcu daily for DVT prophylaxis. Protonix 40 mg IV daily for stress ulcer prophylaxis. ACCESS: Peripheral IV providing adequate access at this time. Central venous line if needed. Full code Patient is critically ill with opioid overdose resulting in pneumonia and severe hypoxemic respiratory failure. He is at risk for further deterioration, worsening hypoxemia, shock. Critical care time 35 minutes exclusive of separately billable procedures. Code Status: Full
[2017-12-06] MEDS ORDERED: Dexmedetomidine Inj 200 MCG in Sodium Chlor 0.9% Inj 48 ML IV.CONT PRN (10:02)
[2017-12-06] MEDS: Albumin Human 25% Inj 100 ML IV.SIG SCH ×2 (11:00→22:33)
[2017-12-06] MEDS: Dexmedetomidine Inj 1,000 MCG in Sodium Chlor 0.9% Inj 240 ML IV.CONT PRN (14:23)
[2017-12-06] MEDS: Midazolam 50 MG/50 ML Inj 50 MG/50 ML BAG IV.CONT PRN (19:23)
[2017-12-07] MEDS: Piperacil/Tazo 3.375 GM Premix 50 ML IV.SIG SCH ×5 (00:30→23:53)
[2017-12-07] MEDS: Oral Hygiene Kit OROPHARYNG SCH ×5 (00:36→23:54)
[2017-12-07] MEDS: Insulin NovoLOG Aspart Correctional Sugar Inj SQ SCH ×7 (00:36→23:54)
[2017-12-07] MEDS: fentaNYL 10 mcg/mL Premix Drip 2,500 MCG/250 ML BAG IV.SIG PRN ×3 (03:03→22:45)
[2017-12-07] MEDS: Midazolam 50 MG/50 ML Inj 50 MG/50 ML BAG IV.CONT PRN (03:03)
[2017-12-07] MEDS: Propofol 1000 mg/100 ml Inj 1,000 MG/100 ML BOTTLE IV.CONT PRN ×3 (03:28→22:45)
--- NOTE | 2017-12-07 03:29 | XR ---
EXAM DATE: 12/07/2017 6:00 AM EDT AGE/SEX: 32 years / Male INDICATIONS: Short of breath. CLINICAL DATA: This is the patient's subsequent encounter. Patient reports that signs and symptoms h ave been present for 1 week and indicates a pain score of 0/10. MEDICAL/SURGICAL HISTORY: Non-responsive. Non-responsive. COMPARISON: [facility], CHEST 1V SINGLE AP, 12/06/2017. . FINDINGS: Stable ETT and NGT. Persistent bilateral patchy airspace disease. Cardiomediastinal contours are with in normal limits. Bony thorax is intact. CONCLUSION: 1. No significant interval change. 2. Stable ETT and NGT. 3. Stable patchy bilateral airspace disease. Electronically signed by: Flavio Taylor MD 12/07/2017 3:28 AM EDT
[2017-12-07] MEDS ORDERED: Pharmacy Ordered Lab Info OTHER ONE (03:45)
[2017-12-07] MEDS: Chlorhexidine Gluconate 2% 1 Pack (2 Cloths) TOPICAL SCH (05:29)
[2017-12-07] MEDS: Enoxaparin Inj 40 MG/0.4 ML Syringe SQ SCH (05:30)
[2017-12-07] MEDS: Levofloxacin 500 mg Premix Inj 500 MG/100 ML PIGGYBACK IV.SIG SCH (05:30)
[2017-12-07 07:35] LABS: Hematocrit 34.4 % (39.0-51.0); Hemoglobin 11.8 gm/dL (13.0-17.0); Mean Corpuscular HGB Conc 34.4 % (32.0-36.0); Mean Corpuscular Hemoglobin 29.6 pg (27.0-34.0); Mean Corpuscular Volume 85.9 fL (80.0-100.0); Mean Platelet Volume 7.6 fL (7.0-11.0); Platelet Count 205 th/mm3 (150-450); Red Blood Count 4.01 mil/mm3 (4.50-5.90); Red Cell Distribution Width 13.4 % (11.6-17.2); White Blood Count 4.7 th/mm3 (4.0-11.0)
[2017-12-07 07:42] LABS: Albumin 2.7 g/dL (3.4-5.0); Anion Gap 11 meq/L (5-15); Aspartate Aminotransferase 66 U/L (15-37); Blood Urea Nitrogen 15 mg/dL (7-18); Calcium 8.3 mg/dL (8.5-10.1); Carbon Dioxide 23.8 meq/L (21.0-32.0); Chloride 113 meq/L (98-107); Glomerular Filtration Rate 51 mL/min (>89); Glucose,Random 83 mg/dL (74-106); Magnesium 1.9 mg/dL (1.5-2.5); Potassium 3.4 meq/L (3.5-5.1); Sodium 148 meq/L (136-145)
[2017-12-07 07:43] LABS: Alanine Aminotransferase 23 U/L (12-78)
[2017-12-07 07:45] LABS: Alkaline Phosphatase 43 U/L (45-117); Total Protein 6.6 g/dL (6.4-8.2)
[2017-12-07] MEDS: Chlorhexidine 0.12% Oral Kit 15 ML UDC OROPHARYNG SCH ×2 (07:54→20:55)
[2017-12-07] MEDS: Senna/Docusate Sodium 8.6/50 MG Tablet PO SCH ×2 (08:01→20:55)
[2017-12-07] MEDS: Beneprotein Powder Packet G-TUBE SCH ×3 (08:01→17:05)
[2017-12-07] MEDS: Pantoprazole Inj 40 MG Vial IV.PUSH SCH (08:01)
--- NOTE | 2017-12-07 11:50 | P.PNCC ---
Subjective Subjective Remarks/Hospital Course: 32-year-old male complains of chest pain shortness of breath. Patient states that he has productive cough for the past 2 weeks. Patient was seen in emergency room 10 days ago and given prescription for Z-Jose. Patient states that he took a Z-Jose as directed. Patient states that he has persistent cough despite Z-Jose. denies any fever chills. Patient states that he shot up either heroin or Dilaudid this afternoon. Patient was found unresponsive. EMS was called. Patient was given Narcan 0.4 mg IV. Patient woke up. Patient still complaining of severe shortness of breath. Patient states that he has fever this evening. Patient denies any headache. Patient denies any neck pain. Patient complains of heaviness anterior chest wall. Patient denies abdominal pain. Patient denies nausea vomiting diarrhea. Patient denies any focal weakness or numbness of the extremity. Patient was given nonrebreathing mask on the way to the ED. 12/04: Remains intubated, heavily sedated for severe pneumonia and sepsis. Chest x-ray shows worsening infiltrates, WBC count 17 K. GPC in blood culture currently receiving antibiotics including vancomycin. 2D echo is pending at this time 12/05: Patient remains intubated heavily sedated for ventilator synchrony. WBC count is improved, however severe bilateral infiltrates persist on chest x-ray and CT of the chest. Sputum culture remains negative to date. I will proceed with bronchoscopy/BAL 12/06: Remains intubated sedated for vent synchrony, IV Lasix started yesterday with 7.7 L output in 24 hours. Chest x-ray with improving bilateral infiltrates on my review. Patient had bronchoscopy with BAL sent yesterday. 12/07: Patient remains intubated sedated with Versed and fentanyl. Tolerated CPAP trial yesterday but mental status did not permit extubation. Chest x-ray with persistent but slightly improved bilateral infiltrates. Creatinine increased to 1.6, I will discontinue IV Lasix. [facility] cultures remain negative Objective Vital Signs / I&O: Vital Signs 12/06/17 12:00 12/06/17 12:08 12/06/17 12:25 Temperature 99 F Pulse Rate 97 H Respiratory Rate 28 H 20 Blood Pressure 156/88 H Pulse Oximetry 93 L 90 L 12/06/17 13:44 12/06/17 14:00 12/06/17 15:00 Temperature Pulse Rate 112 H 100 H Respiratory Rate 10 L 18 Blood Pressure Pulse Oximetry 93 L 12/06/17 16:00 12/06/17 17:40 12/06/17 18:00 Temperature 98.9 F Pulse Rate 104 H 97 H Respiratory Rate 30 H 21 Blood Pressure 111/54 L Pulse Oximetry 93 L 12/06/17 19:53 12/06/17 20:00 12/06/17 22:00 Temperature 98.8 F Pulse Rate 92 H 86 Respiratory Rate 20 20 Blood Pressure 117/62 Pulse Oximetry 95 95 12/06/17 23:30 12/06/17 23:31 12/07/17 00:00 Temperature 98.5 F Pulse Rate 83 84 Respiratory Rate 20 20 20 Blood Pressure 125/76 Pulse Oximetry 97 96 12/07/17 02:00 12/07/17 03:45 12/07/17 04:00 Temperature 98.9 F Pulse Rate 83 72 91 H Respiratory Rate 20 20 Blood Pressure 130/84 Pulse Oximetry 97 97 12/07/17 06:00 12/07/17 07:28 12/07/17 11:39 Temperature Pulse Rate 79 Respiratory Rate 20 17 Blood Pressure Pulse Oximetry 96 95 Intake & Output 12/06/17 12/07/17 12/07/17 18:59 06:59 18:59 Intake Total 1674 / 1674 897 / 897 200 / 200 Output Total 3000 / 3000 1300 / 1300 Balance -1326 / -1326 -403 / -403 200 / 200 Weight 101.5 kg Intake: IV 1465 / 1465 700 / 700 200 / 200 Precedex Inj 200 MCG In NS Inj 50 / 50 48 ML @ 0.2 MCG/KG/HR 5.07 mls/ hr IV.CONT TITRATE PRN Rx#: [id number] Versed Inj 50 mg In 50 ml @ 2 50 / 50 MG/HR 2 mls/hr IV.CONT TITRATE PRN Rx#:[id number] Diprivan 1000 mg/100 ml Inj 1, 200 / 200 100 / 100 000 mg In 100 ml @ 5 MCG/KG/MIN 3.402 mls/hr IV.CONT TITRATE PRN Rx#:[id number] Flexbumin 25% Inj 100 ML @ 60 100 / 100 100 / 100 mls/hr IV.SIG Q12H [facility] Rx#: [id number] Levaquin 500 mg Premix Inj 500 100 / 100 mg In 100 ml @ 100 mls/hr IV. SIG Q24H [facility] Rx#:[id number] Zosyn 3.375 GM Premix 50 ML @ 100 / 100 100 / 100 100 mls/hr IV.SIG Q6H [facility] Rx#: [id number] KCl 20 mEq Premix Inj 20 meq In 200 / 200 100 ml @ 50 mls/hr IV.SIG Q2H [facility] Rx#:[id number] Vancomycin Inj 1,500 MG In NS 515 / 515 Inj 500 ML @ 250 mls/hr IV.SIG Q12H [facility] Rx#:[id number] fentaNYL 10 mcg/mL Premix Drip 500 / 500 250 / 250 2,500 mcg In 250 ml @ 50 MCG/HR 5 mls/hr IV.SIG TITRATE PRN Rx #:[id number] Tube Feeding 59 / 59 97 / 97 Water Bolus Amount 150 / 150 100 / 100 Output: Urine Amount (Catheter) 3000 / 3000 1300 / 1300 Indwelling Urethral Catheter 1300 / 1300 Straight 3000 / 3000 Result Diagrams: 12/07/17 04:47 12/07/17 04:47 Objective Remarks: GENERAL: Well-nourished, well-developed patient who is orotracheally intubated and sedated. SKIN: Warm and dry. HEAD: Atraumatic. Normocephalic. EYES: Pupils equal and round, 2 mm and reactive bilaterally. No scleral icterus. There is conjunctival injection. ENT: No nasal bleeding or discharge. Mucous membranes pink and moist. NECK: Trachea midline. No JVD. CARDIOVASCULAR: Regular, sinus tach on monitor. No murmurs rubs or gallops. RESPIRATORY: Orotracheally intubated, Rhonchorous breath sounds bilaterally with bilateral wheeze. Few rales. GASTROINTESTINAL: Abdomen soft, non-tender, nondistended. Bowel sounds present. MUSCULOSKELETAL: Extremities without clubbing, cyanosis, or edema. No obvious deformities. NEUROLOGICAL: Sedated for ventilator synchrony, Moves all extremities. No apparent focal deficit. Does not follow commands. Assessment and Plan - Assessment and Plan Plan: NEURO: IV drug use (opioid) Currently on versed, fentanyl for sedation. Precedex to facilitate ventilator weaning Target RASS -2/maintenance of ventilator synchrony. Was responsive following Narcan prior to intubation according to the notes Daily sedation vacation RESP: Acute hypoxemic respiratory failure Bilateral pneumonia ARDS CT pulmonary angiogram negative for PE. There is bilateral lower lobe consolidation. There is pulmonary edema which may be secondary to opioid overdose. Repeat CT of the chest 12/04 shows predominantly consolidative changes indicating pneumonia ACV TV 575/rate 16/PEEP 8/FiO2 40%. Wean FiO2 as tolerated. spontaneous breathing trials Ventilator bundle, DuoNeb every 4 hours, Albuterol every 2 hours as needed Sputum culture remains negative, status post bronchoscopy and BAL 12/05/2017 Mental status and agitation not permitting extubation at this time CV: Monitor hemodynamics. Initial troponin is negative. 2D echo-EF 60-65% No evidence of endocarditis Diuresis to dry weight with Lasix 20 mg IV. Will stop Lasix now due to bump in creatinine to 1.6 GI: OG tube with Jevity, bowel regimen FEN/RENAL: Acute kidney injury Acute hypokalemia Duong was inserted in the ED. Monitor intake and output. Monitor electrolytes. Replace electrolytes as indicated per ICU electrolyte replacement protocol. IV Lasix with IV albumin as above-both will be discontinued today as a creatinine increased to 1.6 ID: Acute community-acquired pneumonia, bilateral. Severe sepsis Leukocytosis Most likely aspiration pneumonia, however he has been having respiratory symptoms for a couple of weeks now despite azithromycin so possible post viral pneumonia. He has been screened for influenza which is negative. Bronchoscopy with BAL 12/05-cultures remain negative today Continue with Zosyn 4.5 g IV every 6 hours, vancomycin, Levaquin. DC vanc today Negative urine Legionella and pneumococcal antigens. Follow-up UA and culture. Follow-up blood culture-Coag negative staph which is probably contaminant. HEME: No acute hematologic issues. ENDO: Acute hyperglycemia Now hypoglycemic Monitor bedside glucose every 4 hours and administer low-dose insulin sliding scale as indicated. Tube feeds with Jevity today PROPH: SCDs/Lovenox 40 mg subcu daily for DVT prophylaxis. Protonix 40 mg IV daily for stress ulcer prophylaxis. ACCESS: Peripheral IV providing adequate access at this time. Central venous line if needed. Full code Patient is critically ill with opioid overdose resulting in pneumonia and severe hypoxemic respiratory failure. He is at risk for further deterioration, worsening hypoxemia, shock. Level 3
[2017-12-07] MEDS: Albumin Human 25% Inj 100 ML IV.SIG SCH (12:17)
[2017-12-07] MEDS: Dexmedetomidine Inj 1,000 MCG in Sodium Chlor 0.9% Inj 240 ML IV.CONT PRN ×2 (14:53→21:36)
[2017-12-07] MEDS ORDERED: Vancomycin Inj 1,500 MG in Sodium Chlor 0.9% Inj 500 ML IV.SIG SCH (15:00)
[2017-12-08] MEDS: Insulin NovoLOG Aspart Correctional Sugar Inj SQ SCH ×6 (04:27→23:45)
[2017-12-08] MEDS: Levofloxacin 500 mg Premix Inj 500 MG/100 ML PIGGYBACK IV.SIG SCH (04:27)
[2017-12-08] MEDS: Oral Hygiene Kit OROPHARYNG SCH ×4 (04:27→23:46)
[2017-12-08] MEDS: Enoxaparin Inj 40 MG/0.4 ML Syringe SQ SCH (04:27)
[2017-12-08] MEDS: Dexmedetomidine Inj 1,000 MCG in Sodium Chlor 0.9% Inj 240 ML IV.CONT PRN ×4 (04:41→23:46)
[2017-12-08] MEDS: Piperacil/Tazo 3.375 GM Premix 50 ML IV.SIG SCH ×4 (05:09→23:46)
[2017-12-08] MEDS: Propofol 1000 mg/100 ml Inj 1,000 MG/100 ML BOTTLE IV.CONT PRN ×5 (06:41→23:46)
[2017-12-08] MEDS: Beneprotein Powder Packet G-TUBE SCH ×3 (08:04→18:19)
[2017-12-08] MEDS: Chlorhexidine 0.12% Oral Kit 15 ML UDC OROPHARYNG SCH ×2 (08:04→19:46)
[2017-12-08] MEDS: fentaNYL 10 mcg/mL Premix Drip 2,500 MCG/250 ML BAG IV.SIG PRN ×2 (08:05→19:46)
[2017-12-08] MEDS: Pantoprazole Inj 40 MG Vial IV.PUSH SCH (08:05)
[2017-12-08] MEDS: Senna/Docusate Sodium 8.6/50 MG Tablet PO SCH ×2 (08:05→20:01)
[2017-12-08 12:04] LABS: ABG Base Excess -1.9 mmol/L (-2-2); ABG PCO2 48 mmHg (38-42); ABG PO2 54 mmHG (61-120)
--- NOTE | 2017-12-08 12:29 | XR ---
EXAM DATE: 12/08/2017 11:57 AM EDT AGE/SEX: 32 years / Male INDICATIONS: Evaluate for infiltrate. CLINICAL DATA: This is the patient's subsequent encounter. Patient reports that signs and symptoms h ave been present for 4 - 6 days and indicates a pain score of 1/10. MEDICAL/SURGICAL HISTORY: . Gastroesophageal reflux disease. Substance abuse, bronchitis, pneum onia. None. COMPARISON: [facility] [place]ST 1V SINGLE AP, 12/07/2017. . FINDINGS: A single AP semierect portable view of the chest was obtained and again demonstrates the endotracheal tube in place with the tip approximately 4 cm above the lissette. The nasogastric tube remains in plac e as well. Patchy airspace opacity is noted in both lungs with no definite effusion. The heart size i s at the upper limits of normal. CONCLUSION: Stable appearance with patchy airspace opacity is again noted in both lungs. Electronically signed by: Garrison De Paz MD 12/08/2017 12:28 PM EDT
--- NOTE | 2017-12-08 13:03 | P.PNCC ---
Subjective Subjective Remarks/Hospital Course: 32-year-old male complains of chest pain shortness of breath. Patient states that he has productive cough for the past 2 weeks. Patient was seen in emergency room 10 days ago and given prescription for Z-Jose. Patient states that he took a Z-Jose as directed. Patient states that he has persistent cough despite Z-Jose. denies any fever chills. Patient states that he shot up either heroin or Dilaudid this afternoon. Patient was found unresponsive. EMS was called. Patient was given Narcan 0.4 mg IV. Patient woke up. Patient still complaining of severe shortness of breath. Patient states that he has fever this evening. Patient denies any headache. Patient denies any neck pain. Patient complains of heaviness anterior chest wall. Patient denies abdominal pain. Patient denies nausea vomiting diarrhea. Patient denies any focal weakness or numbness of the extremity. Patient was given nonrebreathing mask on the way to the ED. 12/04: Remains intubated, heavily sedated for severe pneumonia and sepsis. Chest x-ray shows worsening infiltrates, WBC count 17 K. GPC in blood culture currently receiving antibiotics including vancomycin. 2D echo is pending at this time 12/05: Patient remains intubated heavily sedated for ventilator synchrony. WBC count is improved, however severe bilateral infiltrates persist on chest x-ray and CT of the chest. Sputum culture remains negative to date. I will proceed with bronchoscopy/BAL 12/06: Remains intubated sedated for vent synchrony, IV Lasix started yesterday with 7.7 L output in 24 hours. Chest x-ray with improving bilateral infiltrates on my review. Patient had bronchoscopy with BAL sent yesterday. 12/07: Patient remains intubated sedated with Versed and fentanyl. Tolerated CPAP trial yesterday but mental status did not permit extubation. Chest x-ray with persistent but slightly improved bilateral infiltrates. Creatinine increased to 1.6, I will discontinue IV Lasix. [facility] cultures remain negative 12/08 remains sedated currently on Precedex. Intermittently following commands now. Tolerated CPAP but ABG shows significant hypoxia. Chest x-ray with bilateral infiltrates. Patient not ready for extubation. UO 3500 in 24 hours despite Lasix being discontinued yesterday Objective Vital Signs / I&O: Vital Signs 12/07/17 14:00 12/07/17 15:20 12/07/17 16:00 Temperature 98.4 F Pulse Rate 84 84 Respiratory Rate 20 20 Blood Pressure 127/84 Pulse Oximetry 96 96 12/07/17 16:30 12/07/17 17:00 12/07/17 17:30 Temperature Pulse Rate 81 81 78 Respiratory Rate 20 20 20 Blood Pressure 132/87 137/96 H 134/91 H Pulse Oximetry 97 97 98 12/07/17 18:00 12/07/17 18:30 12/07/17 19:00 Temperature Pulse Rate 78 84 80 Respiratory Rate 20 20 20 Blood Pressure 140/96 H 142/101 H 140/97 H Pulse Oximetry 98 96 98 12/07/17 20:00 12/07/17 20:11 12/07/17 21:00 Temperature 100 F H Pulse Rate 83 77 Respiratory Rate 20 20 20 Blood Pressure 135/91 H 137/91 H Pulse Oximetry 97 97 96 12/07/17 22:00 12/07/17 23:00 12/08/17 00:00 Temperature 99.2 F Pulse Rate 74 75 71 Respiratory Rate 20 20 20 Blood Pressure 135/91 H 140/94 H 136/90 Pulse Oximetry 97 97 97 12/08/17 00:14 12/08/17 01:00 12/08/17 02:00 Temperature Pulse Rate 72 73 Respiratory Rate 20 20 20 Blood Pressure 134/85 138/89 Pulse Oximetry 97 97 96 12/08/17 03:00 12/08/17 03:59 12/08/17 04:00 Temperature 99.2 F Pulse Rate 72 76 Respiratory Rate 20 20 20 Blood Pressure 133/89 126/84 Pulse Oximetry 96 40 L 93 L 12/08/17 05:00 12/08/17 05:02 12/08/17 06:00 Temperature Pulse Rate 119 H 107 H 69 Respiratory Rate 22 23 20 Blood Pressure 158/100 H 128/86 Pulse Oximetry 88 L 91 L 96 12/08/17 07:00 12/08/17 07:45 12/08/17 08:00 Temperature 98.9 F Pulse Rate 72 76 Respiratory Rate 20 20 24 Blood Pressure 132/90 128/92 H Pulse Oximetry 95 94 L 96 12/08/17 10:00 12/08/17 11:46 Temperature Pulse Rate 112 H Respiratory Rate 18 Blood Pressure Pulse Oximetry 90 L Intake & Output 12/07/17 12/08/17 12/08/17 18:59 06:59 18:59 Intake Total 1027 / 1027 1080 / 1080 650 / 650 Output Total 2300 / 2300 1200 / 1200 Balance -1273 / -1273 -120 / -120 650 / 650 Weight 101 kg Intake: IV 820 / 820 980 / 980 650 / 650 Precedex Inj 1,000 MCG In NS 250 / 250 500 / 500 250 / 250 Inj 240 ML @ 0.2 MCG/KG/HR 5.07 mls/hr IV.CONT TITRATE PRN Rx# :[id number] Diprivan 1000 mg/100 ml Inj 1, 120 / 120 180 / 180 000 mg In 100 ml @ 5 MCG/KG/MIN 3.402 mls/hr IV.CONT TITRATE PRN Rx#:[id number] Levaquin 500 mg Premix Inj 500 100 / 100 100 / 100 mg In 100 ml @ 100 mls/hr IV. SIG Q24H [facility] Rx#:[id number] Zosyn 3.375 GM Premix 50 ML @ 100 / 100 50 / 50 50 / 50 100 mls/hr IV.SIG Q6H [facility] Rx#: [id number] fentaNYL 10 mcg/mL Premix Drip 250 / 250 250 / 250 250 / 250 2,500 mcg In 250 ml @ 50 MCG/HR 5 mls/hr IV.SIG TITRATE PRN Rx #:[id number] Tube Feeding 107 / 107 Water Bolus Amount 100 / 100 100 / 100 Output: Urine Amount (Catheter) 2300 / 2300 1200 / 1200 Indwelling Urethral Catheter 2300 / 2300 1200 / 1200 Result Diagrams: 12/07/17 04:47 12/07/17 04:47 Objective Remarks: GENERAL: Well-nourished, well-developed patient who is orotracheally intubated and sedated. SKIN: Warm and dry. HEAD: Atraumatic. Normocephalic. EYES: Pupils equal and round, 2 mm and reactive bilaterally. No scleral icterus. There is conjunctival injection. ENT: No nasal bleeding or discharge. Mucous membranes pink and moist. NECK: Trachea midline. No JVD. CARDIOVASCULAR: Regular, sinus tach on monitor. No murmurs rubs or gallops. RESPIRATORY: Orotracheally intubated, Rhonchorous breath sounds bilaterally with bilateral wheeze. Few rales. GASTROINTESTINAL: Abdomen soft, non-tender, nondistended. Bowel sounds present. MUSCULOSKELETAL: Extremities without clubbing, cyanosis, or edema. No obvious deformities. NEUROLOGICAL: Sedated for ventilator synchrony, Moves all extremities. No apparent focal deficit. Following commands today Assessment and Plan - Assessment and Plan Plan: NEURO: IV drug use (opioid) Precedex to facilitate ventilator weaning. Continue versed, fentanyl for sedation if needed Target RASS -2/maintenance of ventilator synchrony. Responsive following Narcan prior to intubation according to the notes Daily sedation vacation RESP: Acute hypoxemic respiratory failure Bilateral pneumonia ARDS CT pulmonary angiogram negative for PE. There is bilateral lower lobe consolidation. There is pulmonary edema which may be secondary to opioid overdose. Repeat CT of the chest 12/04 shows predominantly consolidative changes indicating pneumonia ACV TV 575/rate 16/PEEP 8/FiO2 40%. Wean FiO2 as tolerated. spontaneous breathing trials Ventilator bundle, DuoNeb every 4 hours, Albuterol every 2 hours as needed Sputum culture remains negative, status post bronchoscopy and BAL 12/05/2017 Mental status and agitation not permitting extubation at this time CV: Monitor hemodynamics. Initial troponin is negative. 2D echo-EF 60-65% No evidence of endocarditis Lasix was discontinued yesterday GI: OG tube with Jevity, bowel regimen FEN/RENAL: Acute kidney injury Acute hypokalemia Duong was inserted in the ED. Monitor intake and output. Monitor electrolytes. Replace electrolytes as indicated per ICU electrolyte replacement protocol. IV Lasix with IV albumin as above-both will be discontinued 12/07/2017 due to increasing creatinine ID: Acute community-acquired pneumonia, bilateral. Severe sepsis Leukocytosis Most likely aspiration pneumonia, possible post viral pneumonia. He has been screened for influenza which is negative. Bronchoscopy with BAL 12/05-cultures remain negative today Continue with Zosyn 4.5 g IV every 6 hours, Levaquin. DC Levaquin today Negative urine Legionella and pneumococcal antigens. Follow-up UA and culture. Follow-up blood culture-Coag negative staph which is probably contaminant. HEME: No acute hematologic issues. ENDO: Acute hyperglycemia Now hypoglycemic Monitor bedside glucose every 4 hours and administer low-dose insulin sliding scale as indicated. Tube feeds with Jevity today PROPH: SCDs/Lovenox 40 mg subcu daily for DVT prophylaxis. Protonix 40 mg IV daily for stress ulcer prophylaxis. ACCESS: Peripheral IV providing adequate access at this time. Central venous line if needed. Full code Patient is critically ill with opioid overdose resulting in pneumonia and severe hypoxemic respiratory failure. He is at risk for further deterioration, worsening hypoxemia, shock. Level 3 Code Status: Full
[2017-12-08 18:05] LABS: Alanine Aminotransferase 27 U/L (12-78)
[2017-12-08 18:08] LABS: Alkaline Phosphatase 50 U/L (45-117)
[2017-12-08 18:21] LABS: Albumin 2.6 g/dL (3.4-5.0); Anion Gap 14 meq/L (5-15); Aspartate Aminotransferase 70 U/L (15-37); Blood Urea Nitrogen 18 mg/dL (7-18); Calcium 8.9 mg/dL (8.5-10.1); Carbon Dioxide 20.3 meq/L (21.0-32.0); Chloride 110 meq/L (98-107); Glomerular Filtration Rate 58 mL/min (>89); Glucose,Random 97 mg/dL (74-106); Potassium 4.1 meq/L (3.5-5.1); Sodium 144 meq/L (136-145)
[2017-12-08] MEDS: Acetaminophen 325 MG Tablet PO PRN (19:48)
[2017-12-09] MEDS: Propofol 1000 mg/100 ml Inj 1,000 MG/100 ML BOTTLE IV.CONT PRN ×7 (02:04→22:40)
[2017-12-09] MEDS ORDERED: Pharmacy Ordered Lab Info OTHER ONE (02:45)
[2017-12-09] MEDS: Enoxaparin Inj 40 MG/0.4 ML Syringe SQ SCH (04:24)
[2017-12-09] MEDS: Insulin NovoLOG Aspart Correctional Sugar Inj SQ SCH ×5 (04:25→20:26)
[2017-12-09] MEDS: Oral Hygiene Kit OROPHARYNG SCH ×3 (04:25→15:51)
[2017-12-09] MEDS: fentaNYL 10 mcg/mL Premix Drip 2,500 MCG/250 ML BAG IV.SIG PRN ×2 (04:25→14:13)
[2017-12-09 04:44] LABS: Alanine Aminotransferase 24 U/L (12-78); Albumin 2.5 g/dL (3.4-5.0); Anion Gap 12 meq/L (5-15); Aspartate Aminotransferase 49 U/L (15-37); Blood Urea Nitrogen 19 mg/dL (7-18); Calcium 8.2 mg/dL (8.5-10.1); Chloride 110 meq/L (98-107); Glomerular Filtration Rate 57 mL/min (>89); Glucose,Random 103 mg/dL (74-106); Potassium 3.4 meq/L (3.5-5.1); Sodium 146 meq/L (136-145)
[2017-12-09 04:47] LABS: Alkaline Phosphatase 42 U/L (45-117); Total Protein 6.7 g/dL (6.4-8.2)
--- NOTE | 2017-12-09 05:44 | XR ---
EXAM DATE: 12/09/2017 6:00 AM EDT AGE/SEX: 32 years / Male INDICATIONS: Shortness of breath CLINICAL DATA: This is the patient's subsequent encounter. Patient reports that signs and symptoms h ave been present for 4 - 6 days and indicates a pain score of Nonresponsive. MEDICAL/SURGICAL HISTORY: . Gastroesophageal reflux disease. Bronchitis. Pneumonia. None. COMPARISON: [facility], CHEST 1V SINGLE AP, 12/08/2017. . FINDINGS: The cardiac silhouette is enlarged in transverse diameter. Support lines and tubes are in satisfactor y position. There is patchy alveolar disease bilaterally characteristic of edema or pneumonia right g reater than left. There has been no significant change when compared to the prior exam. CONCLUSION: Bilateral edema versus pneumonia. There has been no significant change when compared to the prior exa m. Electronically signed by: Amadeo Duenas MD 12/09/2017 5:43 AM EDT
[2017-12-09] MEDS: Dexmedetomidine Inj 1,000 MCG in Sodium Chlor 0.9% Inj 240 ML IV.CONT PRN ×3 (06:17→20:38)
[2017-12-09] MEDS: Piperacil/Tazo 3.375 GM Premix 50 ML IV.SIG SCH ×3 (06:17→17:53)
[2017-12-09] MEDS: Midazolam 50 MG/50 ML Inj 50 MG/50 ML BAG IV.CONT PRN (06:24)
[2017-12-09] MEDS: Chlorhexidine 0.12% Oral Kit 15 ML UDC OROPHARYNG SCH ×2 (07:57→20:26)
[2017-12-09] MEDS: Senna/Docusate Sodium 8.6/50 MG Tablet PO SCH ×2 (08:01→20:26)
[2017-12-09] MEDS: Beneprotein Powder Packet G-TUBE SCH ×3 (08:01→17:53)
[2017-12-09] MEDS: Pantoprazole Inj 40 MG Vial IV.PUSH SCH (08:01)
[2017-12-09] MEDS: Potassium Chloride 25 MEQ Effervescent Tablet PO PRN (09:02)
--- NOTE | 2017-12-09 09:42 | P.PNCC ---
Subjective Subjective Remarks/Hospital Course: 32-year-old male complains of chest pain shortness of breath. Patient states that he has productive cough for the past 2 weeks. Patient was seen in emergency room 10 days ago and given prescription for Z-Jose. Patient states that he took a Z-Jsoe as directed. Patient states that he has persistent cough despite Z-Jose. denies any fever chills. Patient states that he shot up either heroin or Dilaudid this afternoon. Patient was found unresponsive. EMS was called. Patient was given Narcan 0.4 mg IV. Patient woke up. Patient still complaining of severe shortness of breath. Patient states that he has fever this evening. Patient denies any headache. Patient denies any neck pain. Patient complains of heaviness anterior chest wall. Patient denies abdominal pain. Patient denies nausea vomiting diarrhea. Patient denies any focal weakness or numbness of the extremity. Patient was given nonrebreathing mask on the way to the ED. 12/04: Remains intubated, heavily sedated for severe pneumonia and sepsis. Chest x-ray shows worsening infiltrates, WBC count 17 K. GPC in blood culture currently receiving antibiotics including vancomycin. 2D echo is pending at this time 12/05: Patient remains intubated heavily sedated for ventilator synchrony. WBC count is improved, however severe bilateral infiltrates persist on chest x-ray and CT of the chest. Sputum culture remains negative to date. I will proceed with bronchoscopy/BAL 12/06: Remains intubated sedated for vent synchrony, IV Lasix started yesterday with 7.7 L output in 24 hours. Chest x-ray with improving bilateral infiltrates on my review. Patient had bronchoscopy with BAL sent yesterday. 12/07: Patient remains intubated sedated with Versed and fentanyl. Tolerated CPAP trial yesterday but mental status did not permit extubation. Chest x-ray with persistent but slightly improved bilateral infiltrates. Creatinine increased to 1.6, I will discontinue IV Lasix. [facility] cultures remain negative 12/08 remains sedated currently on Precedex. Intermittently following commands now. Tolerated CPAP but ABG shows significant hypoxia. Chest x-ray with bilateral infiltrates. Patient not ready for extubation. UO 3500 in 24 hours despite Lasix being discontinued yesterday 12/09 Patient remains intubated and sedated with Diprivan, Fentanyl and on Precedex drip. T:100.7 last night. Objective Vital Signs / I&O: Vital Signs 12/08/17 10:00 12/08/17 11:00 12/08/17 11:46 Temperature Pulse Rate 109 H 116 H Respiratory Rate 13 16 18 Blood Pressure 135/82 142/78 H Pulse Oximetry 93 L 91 L 90 L 12/08/17 12:00 12/08/17 13:00 12/08/17 14:00 Temperature 98.8 F Pulse Rate 91 H 110 H 123 H Respiratory Rate 9 L 15 23 Blood Pressure 118/61 126/75 129/73 Pulse Oximetry 90 L 92 L 91 L 12/08/17 15:00 12/08/17 16:00 12/08/17 16:17 Temperature 98.3 F Pulse Rate 78 74 Respiratory Rate 24 20 20 Blood Pressure 134/80 141/86 H Pulse Oximetry 94 L 96 97 12/08/17 17:00 12/08/17 18:00 12/08/17 19:00 Temperature Pulse Rate 72 72 69 Respiratory Rate 20 20 20 Blood Pressure 144/89 H 146/87 H 141/86 H Pulse Oximetry 95 95 94 L 12/08/17 20:00 12/08/17 20:12 12/08/17 21:00 Temperature 100.7 F H Pulse Rate 71 68 Respiratory Rate 20 20 20 Blood Pressure 146/89 H 136/83 Pulse Oximetry 94 L 94 L 92 L 12/08/17 21:25 12/08/17 22:00 12/08/17 23:00 Temperature Pulse Rate 67 73 69 Respiratory Rate 20 20 22 Blood Pressure 136/85 129/81 Pulse Oximetry 91 L 93 L 12/08/17 23:47 12/09/17 00:00 12/09/17 01:00 Temperature 99.5 F Pulse Rate 66 62 Respiratory Rate 22 20 20 Blood Pressure 135/86 144/90 H Pulse Oximetry 93 L 93 L 94 L 12/09/17 02:00 12/09/17 03:00 12/09/17 04:00 Temperature 99.0 F Pulse Rate 80 67 69 Respiratory Rate 20 20 20 Blood Pressure 139/89 Pulse Oximetry 92 L 93 L 92 L 12/09/17 04:19 12/09/17 04:37 12/09/17 05:00 Temperature Pulse Rate 71 69 Respiratory Rate 20 20 20 Blood Pressure 121/79 136/87 Pulse Oximetry 93 L 93 L 94 L 12/09/17 06:00 12/09/17 08:00 12/09/17 08:24 Temperature Pulse Rate 69 122 H Respiratory Rate 22 Blood Pressure Pulse Oximetry 96 Intake & Output 12/08/17 12/09/17 12/09/17 18:59 06:59 18:59 Intake Total 1490 / 1490 1739 / 1739 50 / 50 Output Total 950 / 950 Balance 1490 / 1490 789 / 789 50 / 50 Weight 101 kg Intake: IV 1100 / 1100 1560 / 1560 50 / 50 Precedex Inj 1,000 MCG In NS 500 / 500 500 / 500 Inj 240 ML @ 0.2 MCG/KG/HR 5.07 mls/hr IV.CONT TITRATE PRN Rx# :[id number] Versed Inj 50 mg In 50 ml @ 2 50 / 50 MG/HR 2 mls/hr IV.CONT TITRATE PRN Rx#:[id number] Diprivan 1000 mg/100 ml Inj 1, 100 / 100 460 / 460 000 mg In 100 ml @ 5 MCG/KG/MIN 3.402 mls/hr IV.CONT TITRATE PRN Rx#:[id number] Levaquin 500 mg Premix Inj 500 100 / 100 mg In 100 ml @ 100 mls/hr IV. SIG Q24H [facility] Rx#:[id number] Zosyn 3.375 GM Premix 50 ML @ 150 / 150 50 / 50 50 / 50 100 mls/hr IV.SIG Q6H [facility] Rx#: [id number] fentaNYL 10 mcg/mL Premix Drip 250 / 250 500 / 500 2,500 mcg In 250 ml @ 50 MCG/HR 5 mls/hr IV.SIG TITRATE PRN Rx #:[id number] Oral 0 / 0 Oral Supplement 0 / 0 Tube Feeding 30 / 30 179 / 179 Tube Irrigant 0 / 0 Water Bolus Amount 360 / 360 0 / 0 Output: Urine Amount (Catheter) 850 / 850 Indwelling Urethral Catheter 850 / 850 Gastric Drainage 100 / 100 Oral Orogastric Tube 100 / 100 Other: Bladder Irrigation Fluid - Amount Instilled Straight 1,600 0 # Bowel Movements 0 Result Diagrams: 12/07/17 04:47 12/09/17 04:00 Other Results: Laboratory Results - last 12 hr 10/06/2212/09/17 12/09/17 23:44 03:34 04:00 Sodium 146 H Potassium 3.4 L Chloride 110 H Carbon Dioxide 24.0 Anion Gap 12 BUN 19 H Creatinine 1.45 H Estimated GFR 57 L POC Glucose 96 104 Random Glucose 103 Calcium 8.2 L Total Bilirubin 0.7 AST 49 H ALT 24 Alkaline Phosphatase 42 L Total Protein 6.7 Albumin 2.5 L Vancomycin Trough 3.0 L 12/09/17 07:21 Sodium Potassium Chloride Carbon Dioxide Anion Gap BUN Creatinine Estimated GFR POC Glucose 102 Random Glucose Calcium Total Bilirubin AST ALT Alkaline Phosphatase Total Protein Albumin Vancomycin Trough Imaging: Chest CTA 12/02/17 21:44 CONCLUSION: 1. No pulmonary embolus. 2. Dense areas of consolidation or atelectasis involving the posterior lower lobes. Aspiration could be considered. 3. More diffuse patchy areas of consolidation which may relate to underlying processes edema. Chest CT 12/04/17 00:00 CONCLUSION: 1. Dense consolidation remains in both lower lobes with air bronchograms. There is mild consolidation in the posterior upper lobes which appears mildly improved. 2. Multiple new small nodular areas of consolidative opacity in both lungs which are nonspecific. 3. Mild cardiomegaly. Gallbladder Ultrasound 12/04/17 00:00 CONCLUSION: 1. The common bile duct is within normal limits. 2. The liver is prominent in size with mild hepatic steatosis. Chest X-Ray 12/09/17 06:00 CONCLUSION: Bilateral edema versus pneumonia. There has been no significant change when compared to the prior exam. Objective Remarks: GENERAL: Well-nourished, well-developed patient who is orotracheally intubated and sedated. SKIN: Warm and dry. HEAD: Atraumatic. Normocephalic. EYES: Pupils equal and round, 2 mm and reactive bilaterally. No scleral icterus. There is conjunctival injection. ENT: No nasal bleeding or discharge. Mucous membranes pink and moist. NECK: Trachea midline. No JVD. CARDIOVASCULAR: Regular, sinus tach on monitor. No murmurs rubs or gallops. RESPIRATORY: Orotracheally intubated, Rhonchorous breath sounds bilaterally with bilateral wheeze. Few rales. GASTROINTESTINAL: Abdomen soft, non-tender, nondistended. Bowel sounds present. MUSCULOSKELETAL: Extremities without clubbing, cyanosis, or edema. No obvious deformities. NEUROLOGICAL: Sedated for ventilator synchrony, Moves all extremities. No apparent focal deficit. Following commands today Assessment and Plan - Assessment and Plan Plan: NEURO: IV drug use (opioid) Precedex to facilitate ventilator weaning. On Diprivan and fentanyl infusion for sedation. Daily sedation vacation Target RASS -2/maintenance of ventilator synchrony. Responsive following Narcan prior to intubation according to the notes RESP: Acute hypoxemic respiratory failure Bilateral pneumonia ARDS CT pulmonary angiogram negative for PE. There is bilateral lower lobe consolidation. There is pulmonary edema which may be secondary to opioid overdose. Repeat CT of the chest 12/04 shows predominantly consolidative changes indicating pneumonia On PRVC/AC, Check ABG Ventilator bundle, DuoNeb every 4 hours, Albuterol every 2 hours as needed Sputum culture remains negative, status post bronchoscopy and BAL 12/05/2017 SBT daily as orestes. CV: Monitor HR and BP keep MAP>65mmHg 2D echo-EF 60-65% GI: OG tube with Jevity 1.5 advance to goal rate Continue bowel regimen FEN/RENAL: Acute kidney injury Hypokalemia Duong was inserted in the ED. Monitor intake and output. Monitor electrolytes. Monitor renal function, I/O's, electrolytes replacement per protocol. Cr: 1.45 today. Will need K replacement today for K 3.4 ID: Acute community-acquired pneumonia, bilateral. Severe sepsis Leukocytosis Most likely aspiration pneumonia, possible post viral pneumonia. He has been screened for influenza which is negative. Bronchoscopy with BAL 12/05-cultures remain negative today Continue with Zosyn 4.5 g IV every 6 hours, Negative urine Legionella and pneumococcal antigens. Follow-up blood culture-Coag negative staph which is probably contaminant. Urine cx 12/03: No growth HEME: Monitor CBC ENDO: Monitor bedside glucose every 4 hours and administer low-dose insulin sliding scale as indicated. PROPH: SCDs/Lovenox 40 mg subcu daily for DVT prophylaxis. Protonix 40 mg IV daily for stress ulcer prophylaxis. ACCESS: Peripheral IV providing adequate access at this time. Central venous line if needed. Full code Level 3
[2017-12-09 12:57] LABS: ABG Base Excess -1.5 mmol/L (-2-2); ABG PCO2 26 mmHg (38-42); ABG PO2 80 mmHG (61-120)
[2017-12-10] MEDS: Piperacil/Tazo 3.375 GM Premix 50 ML IV.SIG SCH ×4 (00:31→18:25)
[2017-12-10] MEDS: Oral Hygiene Kit OROPHARYNG SCH ×4 (00:31→17:02)
[2017-12-10] MEDS: Insulin NovoLOG Aspart Correctional Sugar Inj SQ SCH ×6 (00:31→20:39)
[2017-12-10] MEDS: fentaNYL 10 mcg/mL Premix Drip 2,500 MCG/250 ML BAG IV.SIG PRN (01:06)
[2017-12-10] MEDS: Midazolam 50 MG/50 ML Inj 50 MG/50 ML BAG IV.CONT PRN (01:42)
[2017-12-10] MEDS: Propofol 1000 mg/100 ml Inj 1,000 MG/100 ML BOTTLE IV.CONT PRN ×2 (02:01→05:35)
[2017-12-10] MEDS: Dexmedetomidine Inj 1,000 MCG in Sodium Chlor 0.9% Inj 240 ML IV.CONT PRN (03:39)
--- NOTE | 2017-12-10 03:39 | XR ---
EXAM DATE: 12/10/2017 12:00 AM EDT AGE/SEX: 32 years / Male INDICATIONS: Shortness of breath, possible pulmonary disease. CLINICAL DATA: This is the patient's subsequent encounter. Patient reports that signs and symptoms h ave been present for 1 week and indicates a pain score of Nonresponsive. MEDICAL/SURGICAL HISTORY: Gastroesophageal reflux disease. None. COMPARISON: [facility], CHEST 1V SINGLE AP, 12/09/2017. . FINDINGS: Endotracheal tube and nasogastric tube are stable and satisfactory position. There is persistent patc hy bilateral infiltrates. Cardiac contours are unchanged. CONCLUSION: Stable chest. Electronically signed by: Kana Alatorre MD 12/10/2017 3:37 AM EDT
[2017-12-10 04:10] LABS: Baso % (Auto) 0.7 % (0.0-2.0); Eos # (Auto) 0.4 th/mm3 (0.0-0.4); Eos % (Auto) 8.5 % (0.0-4.0); Hematocrit 37.4 % (39.0-51.0); Hemoglobin 13.1 gm/dL (13.0-17.0); Lymph # (Auto) 1.4 th/mm3 (1.0-4.8); Lymph % (Auto) 29.7 % (9.0-44.0); Mean Corpuscular HGB Conc 35.1 % (32.0-36.0); Mean Corpuscular Hemoglobin 29.7 pg (27.0-34.0); Mean Corpuscular Volume 84.6 fL (80.0-100.0); Mono # (Auto) 0.5 th/mm3 (0.0-0.9); Mono % (Auto) 11.2 % (0.0-8.0); Neut # (Auto) 2.4 th/mm3 (1.8-7.7); Neut % (Auto) 49.9 % (16.0-70.0); Platelet Count 279 th/mm3 (150-450); Red Blood Count 4.43 mil/mm3 (4.50-5.90); Red Cell Distribution Width 12.9 % (11.6-17.2); White Blood Count 4.9 th/mm3 (4.0-11.0)
[2017-12-10] MEDS: Enoxaparin Inj 40 MG/0.4 ML Syringe SQ SCH (04:16)
[2017-12-10 04:41] LABS: Albumin 2.5 g/dL (3.4-5.0); Anion Gap 12 meq/L (5-15); Aspartate Aminotransferase 33 U/L (15-37); Blood Urea Nitrogen 26 mg/dL (7-18); Calcium 8.5 mg/dL (8.5-10.1); Chloride 112 meq/L (98-107); Glomerular Filtration Rate 61 mL/min (>89); Glucose,Random 99 mg/dL (74-106); Magnesium 2.4 mg/dL (1.5-2.5); Potassium 3.6 meq/L (3.5-5.1); Sodium 145 meq/L (136-145)
[2017-12-10 04:42] LABS: Alanine Aminotransferase 22 U/L (12-78); Phosphorus 3.7 mg/dL (2.5-4.9)
[2017-12-10 04:44] LABS: Alkaline Phosphatase 40 U/L (45-117); Total Protein 6.7 g/dL (6.4-8.2)
[2017-12-10] MEDS: Senna/Docusate Sodium 8.6/50 MG Tablet PO SCH ×2 (08:03→20:39)
[2017-12-10] MEDS: Chlorhexidine 0.12% Oral Kit 15 ML UDC OROPHARYNG SCH ×2 (08:04→20:39)
[2017-12-10] MEDS: Beneprotein Powder Packet G-TUBE SCH ×3 (08:04→18:25)
[2017-12-10] MEDS: Pantoprazole Inj 40 MG Vial IV.PUSH SCH (08:04)
--- NOTE | 2017-12-10 11:13 | P.PNCC ---
Subjective Subjective Remarks/Hospital Course: 32-year-old male complains of chest pain shortness of breath. Patient states that he has productive cough for the past 2 weeks. Patient was seen in emergency room 10 days ago and given prescription for Z-Jose. Patient states that he took a Z-Jose as directed. Patient states that he has persistent cough despite Z-Jose. denies any fever chills. Patient states that he shot up either heroin or Dilaudid this afternoon. Patient was found unresponsive. EMS was called. Patient was given Narcan 0.4 mg IV. Patient woke up. Patient still complaining of severe shortness of breath. Patient states that he has fever this evening. Patient denies any headache. Patient denies any neck pain. Patient complains of heaviness anterior chest wall. Patient denies abdominal pain. Patient denies nausea vomiting diarrhea. Patient denies any focal weakness or numbness of the extremity. Patient was given nonrebreathing mask on the way to the ED. 12/04: Remains intubated, heavily sedated for severe pneumonia and sepsis. Chest x-ray shows worsening infiltrates, WBC count 17 K. GPC in blood culture currently receiving antibiotics including vancomycin. 2D echo is pending at this time 12/05: Patient remains intubated heavily sedated for ventilator synchrony. WBC count is improved, however severe bilateral infiltrates persist on chest x-ray and CT of the chest. Sputum culture remains negative to date. I will proceed with bronchoscopy/BAL 12/06: Remains intubated sedated for vent synchrony, IV Lasix started yesterday with 7.7 L output in 24 hours. Chest x-ray with improving bilateral infiltrates on my review. Patient had bronchoscopy with BAL sent yesterday. 12/07: Patient remains intubated sedated with Versed and fentanyl. Tolerated CPAP trial yesterday but mental status did not permit extubation. Chest x-ray with persistent but slightly improved bilateral infiltrates. Creatinine increased to 1.6, I will discontinue IV Lasix. [facility] cultures remain negative 12/08 remains sedated currently on Precedex. Intermittently following commands now. Tolerated CPAP but ABG shows significant hypoxia. Chest x-ray with bilateral infiltrates. Patient not ready for extubation. UO 3500 in 24 hours despite Lasix being discontinued yesterday 12/09 Patient remains intubated and sedated with Diprivan, Fentanyl and on Precedex drip. T:100.7 last night. 12/10: Tolerating CPAP better today. Currently remains on Precedex propofol and Versed weaned. Chest x-ray shows improved infiltrates Objective Vital Signs / I&O: Vital Signs 12/09/17 11:24 12/09/17 12:00 12/09/17 13:00 Temperature 99.7 F H Pulse Rate 70 64 Respiratory Rate 20 21 20 Blood Pressure 129/85 123/79 Pulse Oximetry 100 96 97 12/09/17 14:00 12/09/17 15:00 12/09/17 15:55 Temperature Pulse Rate 62 61 Respiratory Rate 20 20 20 Blood Pressure 120/80 124/80 Pulse Oximetry 97 97 97 12/09/17 16:00 12/09/17 17:00 12/09/17 18:00 Temperature 98.7 F Pulse Rate 60 60 62 Respiratory Rate 20 20 20 Blood Pressure 120/80 119/79 120/83 Pulse Oximetry 97 97 96 12/09/17 19:00 12/09/17 20:00 12/09/17 20:11 Temperature 98 F Pulse Rate 57 L 56 L Respiratory Rate 20 20 20 Blood Pressure 124/84 128/85 Pulse Oximetry 97 98 98 12/09/17 21:00 12/09/17 22:00 12/09/17 23:00 Temperature Pulse Rate 57 L 58 L 57 L Respiratory Rate 20 20 20 Blood Pressure 128/84 127/84 129/88 Pulse Oximetry 98 97 98 12/09/17 23:59 12/10/17 00:00 12/10/17 01:00 Temperature 97.7 F Pulse Rate 57 L 58 L Respiratory Rate 20 20 20 Blood Pressure 127/84 128/83 Pulse Oximetry 98 98 98 12/10/17 02:00 12/10/17 03:00 12/10/17 03:54 Temperature Pulse Rate 57 L 57 L Respiratory Rate 20 20 20 Blood Pressure 131/85 131/87 Pulse Oximetry 98 100 100 12/10/17 04:00 12/10/17 05:00 12/10/17 06:00 Temperature 98.1 F Pulse Rate 60 61 61 Respiratory Rate 20 20 20 Blood Pressure 129/86 113/75 121/81 Pulse Oximetry 100 95 94 L 12/10/17 07:00 12/10/17 08:00 12/10/17 08:24 Temperature 97.8 F Pulse Rate 58 L 58 L Respiratory Rate 20 20 20 Blood Pressure 125/81 127/82 Pulse Oximetry 97 98 98 12/10/17 09:00 12/10/17 09:05 Temperature Pulse Rate 70 Respiratory Rate 21 19 Blood Pressure 130/86 Pulse Oximetry 93 L 97 Intake & Output 12/09/17 12/10/17 12/10/17 18:59 06:59 18:59 Intake Total 1100 / 1100 1683 / 1683 50 / 50 Output Total 1000 / 1000 1700 / 1700 Balance 100 / 100 -17 / -17 50 / 50 Weight 98.8 kg Intake: IV 950 / 950 1250 / 1250 50 / 50 Precedex Inj 1,000 MCG In NS 250 / 250 500 / 500 Inj 240 ML @ 0.2 MCG/KG/HR 5.07 mls/hr IV.CONT TITRATE PRN Rx# :[id number] Versed Inj 50 mg In 50 ml @ 2 50 / 50 MG/HR 2 mls/hr IV.CONT TITRATE PRN Rx#:[id number] Diprivan 1000 mg/100 ml Inj 1, 300 / 300 400 / 400 000 mg In 100 ml @ 5 MCG/KG/MIN 3.402 mls/hr IV.CONT TITRATE PRN Rx#:[id number] Zosyn 3.375 GM Premix 50 ML @ 150 / 150 50 / 50 50 / 50 100 mls/hr IV.SIG Q6H ALEXANDER Rx#: [id number] fentaNYL 10 mcg/mL Premix Drip 250 / 250 250 / 250 2,500 mcg In 250 ml @ 50 MCG/HR 5 mls/hr IV.SIG TITRATE PRN Rx #:[id number] Tube Feeding 150 / 150 233 / 233 Water Bolus Amount 200 / 200 Output: Urine Amount (Catheter) 1000 / 1000 1700 / 1700 Straight 1000 / 1000 1700 / 1700 Other: Bladder Irrigation Fluid - Amount Instilled Straight 100 Result Diagrams: 12/10/17 03:15 12/10/17 03:15 Objective Remarks: GENERAL: Well-nourished, well-developed patient who is orotracheally intubated and sedated. SKIN: Warm and dry. HEAD: Atraumatic. Normocephalic. EYES: Pupils equal and round, 2 mm and reactive bilaterally. No scleral icterus. There is conjunctival injection. ENT: No nasal bleeding or discharge. Mucous membranes pink and moist. NECK: Trachea midline. No JVD. CARDIOVASCULAR: Regular, sinus tach on monitor. No murmurs rubs or gallops. RESPIRATORY: Orotracheally intubated, Rhonchorous breath sounds bilaterally with bilateral wheeze. Few rales. GASTROINTESTINAL: Abdomen soft, non-tender, nondistended. Bowel sounds present. MUSCULOSKELETAL: Extremities without clubbing, cyanosis, or edema. No obvious deformities. NEUROLOGICAL: Sedated for ventilator synchrony, Moves all extremities. On sedation hold wakes up easily follows commands Assessment and Plan - Assessment and Plan Plan: NEURO: IV drug use (opioid) Precedex to facilitate ventilator weaning. On Diprivan and fentanyl infusion for sedation. Hold all sedation except Precedex Target RASS -2/maintenance of ventilator synchrony. Responsive following Narcan prior to intubation according to the notes RESP: Acute hypoxemic respiratory failure Bilateral pneumonia ARDS CT pulmonary angiogram negative for PE. There is bilateral lower lobe consolidation. There is pulmonary edema which may be secondary to opioid overdose. Repeat CT of the chest 12/04 shows predominantly consolidative changes indicating pneumonia On PRVC/AC, Check ABG. PT with possible extubation today Ventilator bundle, DuoNeb every 4 hours, Albuterol every 2 hours as needed Sputum culture remains negative, status post bronchoscopy and BAL 12/05/2017 CV: Monitor HR and BP keep MAP>65mmHg 2D echo-EF 60-65% IV Lasix 20 mg x1 GI: OG tube with Jevity 1.5 advance to goal rate-hold for extubation Continue bowel regimen FEN/RENAL: Acute kidney injury Hypokalemia Duong was inserted in the ED. Monitor intake and output. Monitor electrolytes. Monitor renal function, I/O's, electrolytes replacement per protocol. Cr: 1.36 today. Will need K replacement today for K 3.4 ID: Acute community-acquired pneumonia, bilateral. Severe sepsis Leukocytosis Most likely aspiration pneumonia, possible post viral pneumonia. He has been screened for influenza which is negative. Bronchoscopy with BAL 12/05-cultures remain negative today Continue with Zosyn 4.5 g IV every 6 hours, Negative urine Legionella and pneumococcal antigens. Follow-up blood culture-Coag negative staph which is probably contaminant. Urine cx 12/03: No growth HEME: Monitor CBC ENDO: Monitor bedside glucose every 4 hours and administer low-dose insulin sliding scale as indicated. PROPH: SCDs/Lovenox 40 mg subcu daily for DVT prophylaxis. Protonix 40 mg IV daily for stress ulcer prophylaxis. ACCESS: Peripheral IV providing adequate access at this time. Central venous line if needed. Full code Level 3
[2017-12-11] MEDS: Piperacil/Tazo 3.375 GM Premix 50 ML IV.SIG SCH ×5 (00:10→23:33)
[2017-12-11] MEDS: Oral Hygiene Kit OROPHARYNG SCH ×5 (00:10→23:33)
[2017-12-11] MEDS: Insulin NovoLOG Aspart Correctional Sugar Inj SQ SCH ×7 (00:11→23:33)
[2017-12-11] MEDS: Enoxaparin Inj 40 MG/0.4 ML Syringe SQ SCH (03:50)
[2017-12-11] MEDS: Chlorhexidine 0.12% Oral Kit 15 ML UDC OROPHARYNG SCH ×2 (08:07→20:29)
[2017-12-11] MEDS: Beneprotein Powder Packet G-TUBE SCH ×3 (08:07→17:28)
[2017-12-11] MEDS: Pantoprazole Inj 40 MG Vial IV.PUSH SCH (08:07)
[2017-12-11] MEDS: Senna/Docusate Sodium 8.6/50 MG Tablet PO SCH ×2 (08:08→20:29)
--- NOTE | 2017-12-11 08:49 | P.PNCC ---
Subjective Subjective Remarks/Hospital Course: 32-year-old male complains of chest pain shortness of breath. Patient states that he has productive cough for the past 2 weeks. Patient was seen in emergency room 10 days ago and given prescription for Z-Jose. Patient states that he took a Z-Jose as directed. Patient states that he has persistent cough despite Z-Jose. denies any fever chills. Patient states that he shot up either heroin or Dilaudid this afternoon. Patient was found unresponsive. EMS was called. Patient was given Narcan 0.4 mg IV. Patient woke up. Patient still complaining of severe shortness of breath. Patient states that he has fever this evening. Patient denies any headache. Patient denies any neck pain. Patient complains of heaviness anterior chest wall. Patient denies abdominal pain. Patient denies nausea vomiting diarrhea. Patient denies any focal weakness or numbness of the extremity. Patient was given nonrebreathing mask on the way to the ED. 12/04: Remains intubated, heavily sedated for severe pneumonia and sepsis. Chest x-ray shows worsening infiltrates, WBC count 17 K. GPC in blood culture currently receiving antibiotics including vancomycin. 2D echo is pending at this time 12/05: Patient remains intubated heavily sedated for ventilator synchrony. WBC count is improved, however severe bilateral infiltrates persist on chest x-ray and CT of the chest. Sputum culture remains negative to date. I will proceed with bronchoscopy/BAL 12/06: Remains intubated sedated for vent synchrony, IV Lasix started yesterday with 7.7 L output in 24 hours. Chest x-ray with improving bilateral infiltrates on my review. Patient had bronchoscopy with BAL sent yesterday. 12/07: Patient remains intubated sedated with Versed and fentanyl. Tolerated CPAP trial yesterday but mental status did not permit extubation. Chest x-ray with persistent but slightly improved bilateral infiltrates. Creatinine increased to 1.6, I will discontinue IV Lasix. [facility] cultures remain negative 12/08 remains sedated currently on Precedex. Intermittently following commands now. Tolerated CPAP but ABG shows significant hypoxia. Chest x-ray with bilateral infiltrates. Patient not ready for extubation. UO 3500 in 24 hours despite Lasix being discontinued yesterday 12/09 Patient remains intubated and sedated with Diprivan, Fentanyl and on Precedex drip. T:100.7 last night. 12/10: Tolerating CPAP better today. Currently remains on Precedex propofol and Versed weaned. Chest x-ray shows improved infiltrates 12/11: Extubated yesterday tolerating well. Slightly tachypneic with few coarse rhonchi. But patient is able to breathe comfortably and talks in full sentences. Additional 20 mg IV Lasix ordered Objective Vital Signs / I&O: Vital Signs 12/10/17 09:00 12/10/17 09:05 12/10/17 10:00 Temperature Pulse Rate 70 94 H Respiratory Rate 21 19 31 H Blood Pressure 130/86 132/76 Pulse Oximetry 93 L 97 91 L 12/10/17 11:00 12/10/17 12:00 12/10/17 13:00 Temperature Pulse Rate 104 H 72 95 H Respiratory Rate 34 H 37 H 34 H Blood Pressure 142/90 H 148/75 H 140/70 Pulse Oximetry 89 L 94 L 94 L 12/10/17 14:00 12/10/17 15:00 12/10/17 15:01 Temperature Pulse Rate 86 99 H 101 H Respiratory Rate 35 H 39 H 43 H Blood Pressure 139/84 153/85 H Pulse Oximetry 97 97 96 12/10/17 16:00 12/10/17 16:23 12/10/17 17:00 Temperature 98.0 F Pulse Rate 100 H 97 H 96 H Respiratory Rate 34 H 34 H 45 H Blood Pressure 135/89 133/79 Pulse Oximetry 95 97 95 12/10/17 17:04 12/10/17 18:00 12/10/17 19:00 Temperature Pulse Rate 101 H 99 H Respiratory Rate 37 H 36 H Blood Pressure 149/84 H Pulse Oximetry 95 91 L 97 12/10/17 19:01 12/10/17 20:00 12/10/17 21:00 Temperature 98.9 F Pulse Rate 97 H 92 H 100 H Respiratory Rate 38 H 38 H 22 Blood Pressure 146/84 H 148/81 H 161/77 H Pulse Oximetry 97 97 96 12/10/17 22:00 12/10/17 23:00 12/11/17 00:00 Temperature 98.4 F Pulse Rate 94 H 97 H 100 H Respiratory Rate 34 H 23 Blood Pressure 159/81 H 152/82 H Pulse Oximetry 93 L 95 97 12/11/17 00:01 12/11/17 01:00 12/11/17 01:01 Temperature Pulse Rate 98 H 95 H 93 H Respiratory Rate 29 H 33 H 36 H Blood Pressure 146/82 H 156/76 H Pulse Oximetry 95 96 96 12/11/17 02:00 12/11/17 03:00 12/11/17 03:59 Temperature 98.7 F Pulse Rate 91 H 92 H 88 Respiratory Rate 38 H 42 H 38 H Blood Pressure 155/63 H 153/68 H Pulse Oximetry 97 97 94 L 12/11/17 04:00 12/11/17 06:00 12/11/17 08:06 Temperature Pulse Rate 86 85 Respiratory Rate Blood Pressure 150/65 H Pulse Oximetry 96 Intake & Output 12/10/17 12/11/17 12/11/17 18:59 06:59 18:59 Intake Total 1155 / 1155 390 / 390 Output Total 3000 / 3000 1525 / 1525 Balance -1845 / -1845 -1135 / -1135 Weight 98 kg Intake: IV 675 / 675 150 / 150 Precedex Inj 1,000 MCG In NS 250 / 250 Inj 240 ML @ 0.2 MCG/KG/HR 5.07 mls/hr IV.CONT TITRATE PRN Rx# :[id number] Versed Inj 50 mg In 50 ml @ 2 25 / 25 MG/HR 2 mls/hr IV.CONT TITRATE PRN Rx#:[id number] Diprivan 1000 mg/100 ml Inj 1, 60 / 60 000 mg In 100 ml @ 5 MCG/KG/MIN 3.402 mls/hr IV.CONT TITRATE PRN Rx#:[id number] Zosyn 3.375 GM Premix 50 ML @ 100 / 100 150 / 150 100 mls/hr IV.SIG Q6H ALEXANDER Rx#: [id number] fentaNYL 10 mcg/mL Premix Drip 240 / 240 2,500 mcg In 250 ml @ 50 MCG/HR 5 mls/hr IV.SIG TITRATE PRN Rx #:[id number] Oral 480 / 480 240 / 240 Output: Urine 3000 / 3000 1525 / 1525 Other: # Voids 2 Date of Last Bowel Movement 12/10/17 12/10/17 # Bowel Movements 4 1 Result Diagrams: 12/10/17 03:15 12/10/17 03:15 Objective Remarks: GENERAL: Well-nourished, well-developed patient who is on NC, breathing comfortably SKIN: Warm and dry. HEAD: Atraumatic. Normocephalic. EYES: Pupils equal and round, 2 mm and reactive bilaterally. No scleral icterus. There is conjunctival injection. ENT: No nasal bleeding or discharge. Mucous membranes pink and moist. NECK: Trachea midline. No JVD. CARDIOVASCULAR: Regular, sinus tach on monitor. No murmurs rubs or gallops. RESPIRATORY: Currently breathing comfortably on nasal cannula, Rhonchorous breath sounds bilaterally. Few Rales and wheezes GASTROINTESTINAL: Abdomen soft, non-tender, nondistended. Bowel sounds present. MUSCULOSKELETAL: Extremities without clubbing, cyanosis, or edema. No obvious deformities. NEUROLOGICAL: Alert awake oriented. Moves all extremities follows commands not in any distress Assessment and Plan - Assessment and Plan Plan: NEURO: IV drug use (opioid) Discontinue all IV sedation If needed start on Ativan as needed for agitation RESP: Acute hypoxemic respiratory failure-resolving Bilateral pneumonia/ARDS improving CT pulmonary angiogram negative for PE, showed bilateral lower lobe consolidation, pulmonary edema which may be secondary to opioid overdose. Repeat CT of the chest 12/04 shows predominantly consolidative changes indicating pneumonia Extubated 12/10/2017, tolerating well DuoNeb every 4 hours, Albuterol every 2 hours as needed Sputum culture remains negative, status post bronchoscopy and BAL 12/05/2017- also remains negative CV: Monitor HR and BP keep MAP>65mmHg 2D echo-EF 60-65% IV Lasix 20 mg x1 repeat dose today Place on p.o. Lasix 20 mg daily GI: Diet per speech recommendation Continue bowel regimen FEN/RENAL: Acute kidney injury Hypokalemia Duong was inserted in the ED, now DCd. Monitor intake and output. Monitor electrolytes. Monitor renal function, I/O's, electrolytes replacement per protocol. Cr: 1.36 12/10, labs pending today. ID: Acute community-acquired pneumonia, bilateral. Severe sepsis Leukocytosis Most likely aspiration pneumonia, possible post viral pneumonia. He has been screened for influenza which is negative. Bronchoscopy with BAL 12/05-cultures remain negative today Continue with Zosyn 4.5 g IV every 6 hours, Negative urine Legionella and pneumococcal antigens. Follow-up blood culture-Coag negative staph which is probably contaminant. Urine cx 12/03: No growth HEME: Monitor CBC ENDO: Monitor bedside glucose every 4 hours and administer low-dose insulin sliding scale as indicated. Electrolyte replacement per protocol PROPH: SCDs/Lovenox 40 mg subcu daily for DVT prophylaxis. Protonix 40 mg IV daily for stress ulcer prophylaxis. ACCESS: Peripheral IV providing adequate access at this time. Full code Level 2 Consult hospitalist to assume care in a.m. 12/12/2017
[2017-12-11] MEDS ORDERED: SODIUM CHLOR 0.9% IV.SIG ONE (09:30)
[2017-12-11] MEDS ORDERED: CHLORPROMAZINE IV.SIG ONE (09:30)
--- NOTE | 2017-12-11 15:16 | MB ---
cc: Patricia Ayoub MD DATE: 12/11/2017 HISTORY OF PRESENT ILLNESS: Mr. Herring is a 32-year-old white male who presented on 12/03/2017 with an overdose of opiates. He received Narcan by the EMS squad and regained consciousness, but presented confused, combative and very short of breath. He required intubation and mechanical ventilatory support. He developed diffuse pulmonary infiltrates, possibly aspiration, probably opiate-induced edema, possible community-acquired pneumonia, was finally extubated on 12/10/2017 and is awake and alert at the time of this consultation. I am asked to see him for continued followup of pulmonary infiltrates. He tells me that he smokes marijuana and tobacco on a regular basis. Obviously also uses IV heroin and Dilaudid, based on his presentation. He could not really give me many more details other than the fact, he said he never had any lung trouble before. At present, he denies feeling short of breath. There has been no hemoptysis. Chest x-rays are clearing slowly with diffuse infiltrates. He was also bronchoscoped; BAL reports to date have been negative, no acid fast no fungal or routine bacterial growth. Legionella and streptococcal antigens were negative on admission, and his initial sputum revealed normal renee. Influenza A and B were also negative. He had 1 of 2 positive blood cultures for Staph epidermidis. PAST MEDICAL HISTORY: Basically as noted above. No major surgeries. No other serious medical issues, although he does not have routine medical care. Smoking and drug use noted above. Apparently no excessive alcohol use. SOCIAL HISTORY: He says he is originally from [place], but has lived here for 20 years. Says he has no job has not worked recently has no local family, they are apparently all in [place]. CURRENT MEDICATIONS: Reviewed in the EMR. ALLERGIES: REGLAN, BENADRYL. PHYSICAL EXAMINATION: GENERAL: This is a young white male, in no distress at rest. Provides reasonably good history, but seems confused about some details. Pulse rate is 100, respirations are 24, blood pressure 130/60, and his saturation is 95% on 3-4 liters nasal oxygen. HEENT: Sclerae are anicteric. NECK: Veins are not distended. No palpable adenopathy in the neck, supraclavicular region. CHEST: Fairly clear. Some minimal basilar congestion. No rales. Regular rhythm. No harsh murmur. ABDOMEN: Soft. EXTREMITIES: No peripheral edema. No cyanosis or clubbing. IMAGING: Last chest x-ray was on 12/10/2017; patchy infiltrates in both lungs, improved. LABORATORY DATA: White count is 4900, hemoglobin is 13, platelets 279. Last BUN was 26 with a creatinine of 1.36. DISCUSSION: Mr. Herring presented with either aspiration pneumonia, drug induced pulmonary toxicity/pulmonary edema or community-acquired pneumonia in the setting of tobacco use, marijuana use, and opiate use intravenously. Currently has improved. Oxygenation is adequate on 3 liters. At present, he seems to have very little insight into the problem because when I asked him why he got so sick, he said he did not know. I will continue him on aerosol therapy routinely, in light of the smoking history and the pneumonia. He is currently on piperacillin. We will continue that for at least 7 days. Monitor his oxygen and temperature. Further diagnostic and/or therapeutic intervention will depend on his ongoing clinical course. R. MD CHATA Contreras/jazz , 01:46 PM , 01:56 PM
[2017-12-11] MEDS ORDERED: Adenosine Inj 6 MG/2 ML Syringe IV.PUSH ONE (16:51)
[2017-12-12] MEDS: Enoxaparin Inj 40 MG/0.4 ML Syringe SQ SCH (03:48)
[2017-12-12] MEDS: Insulin NovoLOG Aspart Correctional Sugar Inj SQ SCH ×5 (03:48→21:41)
[2017-12-12] MEDS: Oral Hygiene Kit OROPHARYNG SCH ×3 (03:48→17:30)
[2017-12-12] MEDS: Piperacil/Tazo 3.375 GM Premix 50 ML IV.SIG SCH ×3 (05:19→17:30)
[2017-12-12 06:03] LABS: Hematocrit 48.4 % (39.0-51.0); Hemoglobin 16.7 gm/dL (13.0-17.0); Mean Corpuscular HGB Conc 34.5 % (32.0-36.0); Mean Corpuscular Hemoglobin 28.9 pg (27.0-34.0); Mean Corpuscular Volume 83.7 fL (80.0-100.0); Mean Platelet Volume 6.6 fL (7.0-11.0); Platelet Count 508 th/mm3 (150-450); Red Blood Count 5.78 mil/mm3 (4.50-5.90); Red Cell Distribution Width 13.6 % (11.6-17.2); White Blood Count 6.4 th/mm3 (4.0-11.0)
[2017-12-12 06:36] LABS: Alanine Aminotransferase 24 U/L (12-78); Albumin 3.5 g/dL (3.4-5.0); Alkaline Phosphatase 54 U/L (45-117); Anion Gap 16 meq/L (5-15); Aspartate Aminotransferase 25 U/L (15-37); Blood Urea Nitrogen 31 mg/dL (7-18); Calcium 9.2 mg/dL (8.5-10.1); Carbon Dioxide 20.1 meq/L (21.0-32.0); Chloride 111 meq/L (98-107); Glomerular Filtration Rate 58 mL/min (>89); Glucose,Random 102 mg/dL (74-106); Magnesium 2.7 mg/dL (1.5-2.5); Potassium 3.7 meq/L (3.5-5.1); Sodium 147 meq/L (136-145); Total Protein 8.7 g/dL (6.4-8.2)
--- NOTE | 2017-12-12 07:01 | XR ---
EXAM DATE: 12/12/2017 6:00 AM EDT AGE/SEX: 32 years / Male INDICATIONS: Shortness of breath, possible pulmonary disease. CLINICAL DATA: This is the patient's subsequent encounter. Patient reports that signs and symptoms h ave been present for 2 weeks and indicates a pain score of 0/10. MEDICAL/SURGICAL HISTORY: Gastroesophageal reflux disease. None. [place] [facility] [place]. . FINDINGS: Portable AP view of the chest demonstrates a normal-sized cardiac silhouette. Lungs are underinflated . There is stable patchy consolidation bilaterally particularly in the right lower lung zone and left upper lobe. No pleural effusion or pneumothorax is identified. CONCLUSION: Stable chest x-ray with mild patchy bilateral airspace consolidation. Electronically signed by: Kana Miranda MD 12/12/2017 7:00 AM EDT
[2017-12-12] MEDS: Chlorhexidine 0.12% Oral Kit 15 ML UDC OROPHARYNG SCH ×2 (07:24→21:41)
[2017-12-12] MEDS: Beneprotein Powder Packet G-TUBE SCH ×3 (08:45→17:30)
[2017-12-12] MEDS ORDERED: Furosemide 20 MG Tablet PO SCH (09:00)
[2017-12-12] MEDS: Pantoprazole Inj 40 MG Vial IV.PUSH SCH (09:20)
[2017-12-12] MEDS: Senna/Docusate Sodium 8.6/50 MG Tablet PO SCH ×3 (09:20→21:42)
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
[2017-12-12] MEDS: Sodium Chloride 0.45 % Inj 1,000 ML IV.CONT SCH (14:01)
[2017-12-13] MEDS: Piperacil/Tazo 3.375 GM Premix 50 ML IV.SIG SCH ×5 (00:24→23:50)
[2017-12-13] MEDS: Insulin NovoLOG Aspart Correctional Sugar Inj SQ SCH ×4 (00:29→13:46)
[2017-12-13] MEDS: Oral Hygiene Kit OROPHARYNG SCH ×4 (00:29→17:19)
[2017-12-13] MEDS: Sodium Chloride 0.45 % Inj 1,000 ML IV.CONT SCH ×2 (01:41→13:47)
[2017-12-13] MEDS: Enoxaparin Inj 40 MG/0.4 ML Syringe SQ SCH (04:44)
[2017-12-13] MEDS: Chlorhexidine 0.12% Oral Kit 15 ML UDC OROPHARYNG SCH ×2 (07:46→20:59)
[2017-12-13 08:40] LABS: Calcium 8.9 mg/dL (8.5-10.1); Carbon Dioxide 24.2 meq/L (21.0-32.0); Potassium 3.7 meq/L (3.5-5.1)
[2017-12-13] MEDS: Beneprotein Powder Packet G-TUBE SCH ×3 (08:41→17:48)
[2017-12-13] MEDS: Senna/Docusate Sodium 8.6/50 MG Tablet PO SCH ×2 (08:41→20:59)
[2017-12-13] MEDS: Pantoprazole Inj 40 MG Vial IV.PUSH SCH (08:41)
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
[2017-12-14] MEDS: Oral Hygiene Kit OROPHARYNG SCH ×5 (02:01→23:37)
[2017-12-14] MEDS: Sodium Chloride 0.45 % Inj 1,000 ML IV.CONT SCH (02:01)
[2017-12-14] MEDS: Enoxaparin Inj 40 MG/0.4 ML Syringe SQ SCH (05:56)
[2017-12-14] MEDS: Piperacil/Tazo 3.375 GM Premix 50 ML IV.SIG SCH ×4 (06:23→23:36)
[2017-12-14] MEDS: Chlorhexidine 0.12% Oral Kit 15 ML UDC OROPHARYNG SCH ×2 (07:39→20:13)
[2017-12-14] MEDS: Senna/Docusate Sodium 8.6/50 MG Tablet PO SCH (08:00)
[2017-12-14] MEDS: Beneprotein Powder Packet G-TUBE SCH (08:00)
[2017-12-14] MEDS: Pantoprazole Inj 40 MG Vial IV.PUSH SCH (08:08)
[2017-12-14 08:47] LABS: Calcium 8.9 mg/dL (8.5-10.1); Carbon Dioxide 21.8 meq/L (21.0-32.0); Potassium 3.4 meq/L (3.5-5.1)
--- NOTE | 2017-12-14 11:08 | P.PNIM ---
Subjective Interval history: Respiratory status is improving. Patient is status post ARDS. He does admit to opioid abuse and has used heroin as an outpatient. Currently he feels he is detoxing. He says he had hallucinations last night. Physical Exam Vital signs: Vital Signs 12/13/17 12:00 12/13/17 13:00 12/13/17 13:41 Temperature 99.3 F Pulse Rate 122 H 67 68 Respiratory Rate 30 H 24 28 H Blood Pressure 137/88 146/83 H Pulse Oximetry 98 96 97 12/13/17 14:00 12/13/17 15:00 12/13/17 16:00 Temperature 99.4 F Pulse Rate 68 68 64 Respiratory Rate 42 H 23 22 Blood Pressure 149/89 H 132/77 135/76 Pulse Oximetry 97 97 98 12/13/17 17:00 12/13/17 18:00 12/13/17 19:00 Temperature Pulse Rate 69 68 69 Respiratory Rate 0 L 0 L Blood Pressure 141/81 H 148/82 H 137/87 Pulse Oximetry 98 95 97 12/13/17 20:00 12/13/17 20:17 12/13/17 21:00 Temperature Pulse Rate 63 61 Respiratory Rate 27 H 24 Blood Pressure 158/88 H 142/89 H Pulse Oximetry 96 96 99 12/13/17 21:05 12/13/17 22:00 12/13/17 22:01 Temperature 98.5 F Pulse Rate 62 63 Respiratory Rate 29 H 22 Blood Pressure 141/81 H Pulse Oximetry 99 99 12/13/17 23:00 12/14/17 00:00 12/14/17 01:00 Temperature Pulse Rate 57 L 63 63 Respiratory Rate 18 22 36 H Blood Pressure 147/89 H 140/83 Pulse Oximetry 99 93 L 92 L 12/14/17 01:01 12/14/17 02:00 12/14/17 03:00 Temperature Pulse Rate 63 64 63 Respiratory Rate 27 H 22 21 Blood Pressure 143/71 H 151/99 H 147/92 H Pulse Oximetry 93 L 93 L 94 L 12/14/17 04:00 12/14/17 06:00 Temperature 98.3 F Pulse Rate 74 63 Respiratory Rate 19 Blood Pressure 149/84 H Pulse Oximetry 91 L Intake & Output 12/13/17 12/14/17 12/14/17 18:59 06:59 18:59 Intake Total 1820 / 1820 1300 / 1300 Output Total 480 / 480 1475 / 1475 Balance 1340 / 1340 -175 / -175 Weight 88 kg Intake: IV 1100 / 1100 1100 / 1100 1/2 Normal Saline Inj 1,000 ML 1000 / 1000 1000 / 1000 @ 84 mls/hr IV.CONT .[id number] ALEXANDER Rx#:[id number] Zosyn 3.375 GM Premix 50 ML @ 100 / 100 100 / 100 100 mls/hr IV.SIG Q6H [facility]ER Rx#: [id number] Oral 720 / 720 200 / 200 Output: Urine 480 / 480 1200 / 1200 Emesis 175 / 175 Gastric Drainage 100 / 100 Oral Orogastric Tube 100 / 100 Other: Date of Last Bowel Movement 12/14/17 # Bowel Movements 1 1 Narrative: GENERAL: NAD, A&Ox3 HEAD: Normocephalic. NECK: Supple, trachea midline. No lymphadenopathy. EYES: No scleral icterus. No injection or drainage. CARDIOVASCULAR: Regular rate and rhythm without murmurs, gallops, or rubs. RESPIRATORY: Breath sounds equal bilaterally. No accessory muscle use. GASTROINTESTINAL: Abdomen soft, non-tender, nondistended. MUSCULOSKELETAL: No cyanosis, or edema. SKIN: Warm and dry. NEURO: No focal neurological deficits. - Urinary Catheter Management Indwelling Urethral Catheter Cath placed during this visit: yes Reason for continuing: Acute urinary retention Insertion date: 12/05/17 Insertion time: 17:35 Straight Cath placed during this visit: yes, but has since been removed by the nurse Reason for continuing: Continue criteria not met Insertion date: 12/05/17 Insertion time: 17:31 Removal date: 12/09/17 Removal time: 14:00 Results - Labs CBC & Chem 7: 12/12/17 04:43 12/14/17 04:32 Laboratory Results - last 24 hr 12/14/17 04:32 Sodium 144 Potassium 3.4 L Chloride 107 Carbon Dioxide 21.8 Anion Gap 15 BUN 27 H Creatinine 1.11 Estimated GFR 77 L Random Glucose 76 Calcium 8.9 Assessment and Plan - Plan 32-year-old male admitted secondary to respiratory failure and pneumonia related to opioid abuse IV drug use (opioid) Opioid withdrawals (hallucinations/paranoia) Counseled to quit As needed clonidine Follow clinically for improvement Acute hypoxemic respiratory failure ARDS Sepsis Resolved Bilateral pneumonia (community-acquired) Improving Continue albuterol as needed Continue Zosyn Acute kidney injury- improved Hypokalemia- improved HYpernatremia- improved Discontinue catheter Discontinue IV fluids DVT prophylaxis SCDs Discharge planning Monitor for improvement in withdrawal symptoms and consider discharge once patient is stable
--- NOTE | 2017-12-14 11:10 | P.CONPSY ---
Provisional Diagnosis Admission Date: December 03, 2017 01:50 [place] I.: Unspecified psychosis, history of schizophrenia, polysubstance dependence [place].: Deferred History of Present Illness Service: Critical Care Primary Care Provider: No Primary Care Physician Family Provider: No Primary Care Physician Chief Complaint: SOB History of Present Illness: The patient is a 32-year-old man, domiciled in [facility], unemployed, single, father of 4 kids, with a psychiatric history of schizophrenia, substance -induced psychosis, polysubstance dependence including alcohol, crystal meth, heroin, cocaine, 2 previous psychiatric hospitalizations, no previous suicide attempts, he is noted psychotropics medications, medical history hepatitis C, who came initially complaining of chest pain shortness of breath. Patient stated that he shot up either heroin or Dilaudid this afternoon. Patient was found unresponsive. EMS was called. Patient was given Narcan 0.4 mg IV. He was complaining of shortness of breath, was intubated and admitted in critical care with acute pneumonia. He was extubated 3 days ago. He has been presenting increased paranoia and visual hallucinations and for this reason he was admitted in psychiatry. On my psychiatric evaluation today the patient is calm, cooperative, stating that he has been seeing people coming in and out of his room and he has being having conversations with just to become aware minutes later that they are not real. He reports that last night he was seen persistently 3 people inside his room. At some point he thought they were real , he was clear, but later he gained insight. As I am talking with the patient he continues to be internally preoccupied, looking outside of the room and when I asked him he says that something is wrong, but he does not a lot of worry about this idea. The patient is future oriented, he says that from here he is going to go to live in a sober house. He was already accepted in [facility] in [facility]. He is motivated to continue his sobriety. At this moment he denies visual hallucinations, denies suicidal and homicidal ideation. He is fully oriented x3, no attention deficit, no fluctuation of consciousness. I offered to the patient a voluntary psychiatric admission to be treated for paranoia and visual hallucinations he has accepted. PPHx: Schizophrenia, substance-induced psychosis, polysubstance dependence, 2 previous psychiatric hospitalizations, suicide attempts by overdosing, [facility] C Family Hx: No family psychiatric history Substance Hx: Patient reports daily use of crystal meth heroine IV, occasional use of marijuana, cocaine and alcohol Social Hx: He was born in [facility], he lives in [facility], his single, unemployed at the moment, highest level of education is 11th grade Review of Systems All other systems reviewed negative except as stated in HPI Psychiatric: Reports paranoia, Reports sensing things others do not sense PMFSH - History History Provided By: Medical Record - Medical History Medical History: Medical History (Last Reviewed 12/03/17 @ 08:10 by Garrison Ng) GERD (gastroesophageal reflux disease) (Acute) - Surgical History Surgical History: Surgical History (Last Reviewed 12/03/17 @ 08:10 by Garrison Ng) No history of previous surgery (Acute) - Tobacco History Second Hand Smoke Exposure: Yes Tobacco Use In Past 30 Days: Yes Smoking Status: Current every day smoker Tobacco Type: Cigarettes - Alcohol History How Often Do You Have a Drink Containing Alcohol: Unable to Obtain - Substance Use History Substance History: Past History - Travel History Recent Travel in the [facility] Within the Last 8 Weeks: No - Immunization History Tetanus Immunization: Unsure Medications and Allergies Active Medications: Active Medications Acetaminophen (Tylenol) 650 mg PO Q6H PRN PRN Reason: PAIN 1-10 AND/OR FEVER >101F Last Admin: 12/08/17 19:48 Dose: 650 mg Albuterol (Albuterol Neb (Prn)) 2.5 mg NEB Q2HR NEB PRN PRN Reason: SHORTNESS OF BREATH/WHEEZING Last Admin: 12/08/17 21:25 Dose: 2.5 mg Chlorhexidine Gluconate (Peridex 0.12% Oral Kit) 15 ml OROPHARYNG BID@0800, 2000 [facility] Last Admin: 12/14/17 07:39 Dose: Not Given Clonidine HCl (Catapres) 0.1 mg PO Q6H PRN PRN Reason: Opioid withdraw/hallucinations Enoxaparin Sodium (Lovenox Inj) 40 mg SQ Q24H [facility] Last Admin: 12/14/17 05:56 Dose: 40 mg Piperacillin/Tazobactam/Dextrose (Zosyn 3.375 Gm Premix) 50 mls @ 100 mls/hr IV.SIG Q6H [facility] Last Infusion: 12/14/17 06:51 Dose: Infused Lactobacillus Acidophilus (Lactinex) 1 tab PO TID [facility] Miscellaneous Medication () 1 each OROPHARYNG 0000,0400,1200,1600 [facility] Last Admin: 12/14/17 03:10 Dose: Not Given Ondansetron HCl (Zofran Inj) 4 mg IV.PUSH Q6H PRN PRN Reason: NAUSEA OR VOMITING Last Admin: 12/10/17 18:28 Dose: 4 mg Risperidone (Risperdal) 1 mg PO BID [facility] Sodium Chloride (Ns Flush) 2 ml IV.FLUSH BID [facility] Last Admin: 12/14/17 08:08 Dose: 2 ml Sodium Chloride (Ns Flush) 2 ml IV.FLUSH PRN PRN PRN Reason: FLUSH AFTER USING IV ACCESS Last Admin: 12/04/17 08:40 Dose: 2 ml Allergies Allergy/AdvReac Type Severity Reaction Status Date / Time diphenhydramine Allergy Severe Anxiety Verified 11/22/17 21:48 metoclopramide Allergy Severe Anxiety Verified 11/22/17 21:48 Exam Vital signs: Vital Signs 12/13/17 12:00 12/13/17 13:00 12/13/17 13:41 Temperature 99.3 F Pulse Rate 122 H 67 68 Respiratory Rate 30 H 24 28 H Blood Pressure 137/88 146/83 H Pulse Oximetry 98 96 97 12/13/17 14:00 12/13/17 15:00 12/13/17 16:00 Temperature 99.4 F Pulse Rate 68 68 64 Respiratory Rate 42 H 23 22 Blood Pressure 149/89 H 132/77 135/76 Pulse Oximetry 97 97 98 12/13/17 17:00 12/13/17 18:00 12/13/17 19:00 Temperature Pulse Rate 69 68 69 Respiratory Rate 0 L 0 L Blood Pressure 141/81 H 148/82 H 137/87 Pulse Oximetry 98 95 97 12/13/17 20:00 12/13/17 20:17 12/13/17 21:00 Temperature Pulse Rate 63 61 Respiratory Rate 27 H 24 Blood Pressure 158/88 H 142/89 H Pulse Oximetry 96 96 99 12/13/17 21:05 12/13/17 22:00 12/13/17 22:01 Temperature 98.5 F Pulse Rate 62 63 Respiratory Rate 29 H 22 Blood Pressure 141/81 H Pulse Oximetry 99 99 12/13/17 23:00 12/14/17 00:00 12/14/17 01:00 Temperature Pulse Rate 57 L 63 63 Respiratory Rate 18 22 36 H Blood Pressure 147/89 H 140/83 Pulse Oximetry 99 93 L 92 L 12/14/17 01:01 12/14/17 02:00 12/14/17 03:00 Temperature Pulse Rate 63 64 63 Respiratory Rate 27 H 22 21 Blood Pressure 143/71 H 151/99 H 147/92 H Pulse Oximetry 93 L 93 L 94 L 12/14/17 04:00 12/14/17 06:00 Temperature 98.3 F Pulse Rate 74 63 Respiratory Rate 19 Blood Pressure 149/84 H Pulse Oximetry 91 L Intake & Output 12/13/17 12/14/17 12/14/17 18:59 06:59 18:59 Intake Total 1820 / 1820 1300 / 1300 Output Total 480 / 480 1475 / 1475 Balance 1340 / 1340 -175 / -175 Weight 88 kg Intake: IV 1100 / 1100 1100 / 1100 1/2 Normal Saline Inj 1,000 ML 1000 / 1000 1000 / 1000 @ 84 mls/hr IV.CONT .[id number] [facility] Rx#:[id number] Zosyn 3.375 GM Premix 50 ML @ 100 / 100 100 / 100 100 mls/hr IV.SIG Q6H [facility] Rx#: [id number] Oral 720 / 720 200 / 200 Output: Urine 480 / 480 1200 / 1200 Emesis 175 / 175 Gastric Drainage 100 / 100 Oral Orogastric Tube 100 / 100 Other: Date of Last Bowel Movement 12/14/17 # Bowel Movements 1 1 Narrative: No withdrawal symptoms, no EPS, no psychomotor agitation or retardation - Constitutional mild distress - Routine HEENT Exam Head: Present: normocephalic, atraumatic Eye: Present: EOMI, PERRL ENT: Present: mucous membranes moist Mental Status Examination Appearance: Appropriate Consciousness: Alert Orientation: x4 Motor Activity: Normal gait Speech: Unremarkable Language: Adequate Fund of Knowledge: Adequate Attention and Concentration: Adequate Memory: Unremarkable Mood: Appropriate Affect: Appropriate Thought Process & Associations: Intact Thought Content: Appropriate Hallucination Type: Visual Delusion Type: Paranoid Suicidal Ideation: No Suicidal Plan: No Suicidal Intention: No Homicidal Ideation: No Homicidal Plan: No Homicidal Intention: No Insight: Fair Judgment: Impulsive Assessment and Plan - Assessment (1) Unspecified psychosis Code(s): F29 - Unspecified psychosis not due to a substance or known physiological condition Status: Acute - Plan Plan: The patient presents with active visual hallucinations and paranoia. He reports that in the last 3-4 days he has been experiencing frequent perceptual disturbances consisting on seeing people inside his room, having conversations with them, and at times feeling that these people are not friendly and want to hurt him. He denies symptomatology of depression, denies anxiety, denies suicidal and homicidal ideation, he denies auditory hallucinations. He has a psychiatric history of polysubstance dependence including methamphetamines, heroin, cocaine and cannabis, schizophrenia, previous psychiatric hospitalizations, suicide attempts. He says to me that the perceptual disturbances could be related with subsequent withdrawal and delirium due to underlying medical conditions, but given the level of distress caused by auditory hallucinations that the patient he may benefit of a voluntary psychiatric admission in psychiatry. He does not qualify for [place] act. But I have offered to the patient voluntary admission in psychiatry. I am start Risperdal 1 mg twice daily for the psychotic symptoms. Brief supportive psychotherapy and psychoeducation provided. Justification for Continued Inpatient Stay: Patient can be admitted voluntarily in psychiatry once medically stable
[2017-12-14] MEDS: Lactobacillus Acidophilus/L. Spores Tablet PO SCH ×2 (12:29→17:00)
[2017-12-15 00:49] VITALS: RESP 16
[2017-12-15] MEDS: Oral Hygiene Kit OROPHARYNG SCH (04:50)
[2017-12-15] MEDS: Enoxaparin Inj 40 MG/0.4 ML Syringe SQ SCH (05:01)
[2017-12-15] MEDS: Piperacil/Tazo 3.375 GM Premix 50 ML IV.SIG SCH (05:01)
[2017-12-15 06:02] VITALS: PULSE 62
[2017-12-15] MEDS: Lactobacillus Acidophilus/L. Spores Tablet PO SCH (08:56)
[2017-12-15] MEDS: Chlorhexidine 0.12% Oral Kit 15 ML UDC OROPHARYNG SCH (08:57)
[2017-12-15 09:16] VITALS: O2SAT 96
[2017-12-15 09:39] VITALS: BP 127/83; TEMP 98.6
--- NOTE | 2017-12-15 13:26 | P.DS ---
Date of admission: 12/03/17 01:50 Primary care physician: No Primary Care Physician Brief History from admission: 32-year-old male with past medical history of heroin and Dilaudid abuse. . At some point this evening he injected Dilaudid or heroin. He was found unresponsive. [facility] was called and he was administered Narcan. He then became responsive and was brought into the emergency department. He indicated that he has had a 2-week history of cough and congestion and has been on azithromycin for the last 10 days. He had ongoing productive cough and shortness of breath. He was placed on nonrebreather. His sats were than 89-90 % on nonrebreather and he ultimately required intubation for hypoxemia. CT chest was obtained which demonstrated dense bilateral posterior consolidations. There is also component of pulmonary edema. Scan is negative for pulmonary embolism. He has received vancomycin, cefepime, azithromycin in the emergency department. Unable to obtain further history from patient because he is intubated. DS: Medications - Discharge Medications Prescriptions: risperidone [Risperdal] 1 mg PO BID #60 tab DS: Summary Hospital Course: Mr. Herring is a 32-year-old male. He was admitted to the ICU initially due to respiratory failure from aspiration pneumonia. He was intubated for 3 days and subsequently extubated. He has been improving since extubation. Because of his respiratory failure was indirectly related to opioid abuse including heroin. Patient also had aspiration pneumonia and subsequently developed ARDS. He has been improving since time of extubation. Right now he is back to baseline. He did suffer some opioid withdrawal. Last night his hallucinations have resolved and he is no longer exhibiting signs of opioid withdrawal. At this point is medically stable and cleared for discharge home. He is discharged on Risperdal. - Time Spent with Patient Total time spent providing and/or coordinating discharge services: Less than 30 minutes - Quality: VTE Deep Vein Thrombosis/Pulmonary Embolism Present on Admission: No Exam Vital signs: Vital Signs 12/14/17 14:00 12/14/17 16:00 12/14/17 18:00 Temperature 98.4 F Pulse Rate 65 63 69 Respiratory Rate 16 Blood Pressure 149/90 H Pulse Oximetry 97 12/14/17 20:00 12/14/17 20:05 12/14/17 22:00 Temperature 99 F Pulse Rate 67 66 Respiratory Rate 14 Blood Pressure 147/85 H Pulse Oximetry 96 96 12/15/17 00:00 12/15/17 02:00 12/15/17 04:00 Temperature 99.6 F 98.8 F Pulse Rate 64 61 69 Respiratory Rate 16 Blood Pressure 131/80 142/88 H Pulse Oximetry 95 98 12/15/17 06:00 12/15/17 07:50 12/15/17 08:00 Temperature 98.6 F Pulse Rate 62 62 Respiratory Rate Blood Pressure 127/83 Pulse Oximetry 95 96 Intake & Output 12/14/17 12/15/17 12/15/17 18:59 06:59 18:59 Intake Total 1690 / 1690 600 / 600 Output Total 400 / 400 1300 / 1300 Balance 1290 / 1290 -700 / -700 Weight 89.5 kg Intake: IV 850 / 850 100 / 100 1/2 Normal Saline Inj 1,000 ML 750 / 750 @ 84 mls/hr IV.CONT .[id number] [facility] Rx#:[id number] Zosyn 3.375 GM Premix 50 ML @ 100 / 100 100 / 100 100 mls/hr IV.SIG Q6H [facility] Rx#: [id number] Oral 500 / 500 Tube Feeding 840 / 840 Output: Urine 400 / 400 1300 / 1300 Other: # Voids 1 Date of Last Bowel Movement 12/14/17 12/14/17 12/14/17 # Bowel Movements 0 Results Procedures completed during hospitalization: Intubation/Extubation Labs on day of discharge: Preliminary micro results at discharge 12/05/17 14:20 Fungal Culture - Preliminary Bronchial Washings - Right Upper Lobe No growth in 1 week 12/05/17 14:20 Mycobacterial Culture - Preliminary Bronchial Washings - Right Upper Lobe No growth in 1 week 12/05/17 14:20 Fungal Culture - Preliminary Bronchial Washings - Left Lower Lobe No growth in 1 week 12/05/17 14:20 Mycobacterial Culture - Preliminary Bronchial Washings - Left Lower Lobe No growth in 1 week - Impressions ITS Impressions Chest CTA 12/02/17 21:44 CONCLUSION: 1. No pulmonary embolus. 2. Dense areas of consolidation or atelectasis involving the posterior lower lobes. Aspiration could be considered. 3. More diffuse patchy areas of consolidation which may relate to underlying processes edema. Chest CT 12/04/17 00:00 CONCLUSION: 1. Dense consolidation remains in both lower lobes with air bronchograms. There is mild consolidation in the posterior upper lobes which appears mildly improved. 2. Multiple new small nodular areas of consolidative opacity in both lungs which are nonspecific. 3. Mild cardiomegaly. Gallbladder Ultrasound 12/04/17 00:00 CONCLUSION: 1. The common bile duct is within normal limits. 2. The liver is prominent in size with mild hepatic steatosis. Chest X-Ray 12/12/17 06:00 CONCLUSION: Stable chest x-ray with mild patchy bilateral airspace consolidation. Discharge Plan - Discharge Disposition Patient Disposition: Discharge Home - Discharge Condition Condition: Good - Discharge Order Discharge Orders: Discharge Order (Routine); Ordered 12/15/17 Ordered By: Scottie Ashton - Discharge Details Anticipated Discharge Date: 12/15/17 - Physicians Team Primary Care Provider: Primary Care Monica,Ekaterina Attending Provider: Scottie Ashton Other Providers: Greg Ayoub MD ; Thee Gillespie MD
[2017-12-15] MEDS ORDERED: Sodium Bicarbonate 8.4% Inj 50 MEQ/50 ML Syringe ONE (18:11)
[2017-12-18] MEDS ORDERED: Succinylcholine Inj 200 MG/10 ML Vial ONE (11:17)
[2017-12-18] MEDS ORDERED: Etomidate Inj 40 MG/20 ML Vial IV.PUSH ONE (11:17)
[2017-12-18] MEDS ORDERED: Midazolam Inj 5 MG/ML 1 ML Vial ONE (11:35)
[2017-12-18] MEDS ORDERED: fentaNYL Citrate Inj 100 MCG/2 ML Ampul ONE (11:35)
== END 2017-12-15 10:50 | disposition home or self-care (01) ==
LOC: NEPE 21:29 → NEDA 12-03 01:50 → HIMC 12-03 04:50
PROVIDERS: ADMIT Hospitalist; ATTEND Hospitalist

== ENCOUNTER 2017-12-16 13:43 | Inpatient (IN) ==
[2017-12-16 14:00] VITALS: BP 130/81; TEMP 98.1; O2SAT 96
--- NOTE | 2017-12-16 14:27 | ED ---
HPI General Chief Complaint: Psychiatric Symptoms Stated Complaint: Psych Screen Time Seen by Provider: 12/16/17 13:59 Source: patient Mode of arrival: ambulatory Limitations: no limitations History of Present Illness HPI Narrative: 32-year-old male presents to the emergency department under Benito act. According to the Benito act report the patient was outside drinking alcohol and when approached he claimed he did not care about his life. The patient was just discharged from ICU yesterday after an unintentional drug overdose from heroin and Dilaudid. Patient reports injecting crack cocaine, Dilaudid, heroin today. Claims he is a "addict." He also reports drinking alcohol. He denies suicidal or homicidal ideations. Denies history of suicidal attempts. Denies auditory visual hallucinations. Denies tobacco use. Denies psychiatric history. Denies any other medical complaints. Symptoms are moderate to severe in severity. Aggravated by drug abuse and alcohol use. No known relieving factors. No treatments tried. Onset unknown. Duration chronic. No primary care provider. Allergies to Benadryl and Reglan. Denies significant past medical history. Has no other medical complaints. No other modifying factors or associated signs and symptoms. Related Data Home Medications Medication Instructions Recorded Confirmed No Known Home Medications 12/16/17 12/16/17 Allergies Allergy/AdvReac Type Severity Reaction Status Date / Time diphenhydramine Allergy Severe Anxiety Verified 12/16/17 13:55 metoclopramide Allergy Severe Anxiety Verified 12/16/17 13:55 Review of Systems ROS: all other systems reviewed are negative [facility] Medical History Medical History GERD (gastroesophageal reflux disease) (Acute) Social History Social History Substance History: Active Abuse Second Hand Smoke Exposure: No Smoking Status: Never smoker Tobacco Type: Cigarettes How Often Do You Have a Drink Containing Alcohol: Monthly or less Recent Travel in [facility] within the Last 8 Weeks: Yes Recent Out of Country Travel within the Last 8 Weeks: No Substance Abuse Detail Crack/Cocaine: Substance Use Status: Active Route Used Substance Abuse: Intravenously Last Used: 12/16/17 Heroin: Substance Use Status: Active Route Used Substance Abuse: Intravenously Last Used: 12/16/17 Opiates: Substance Use Status: Active Route Used Substance Abuse: Intravenously Last Used: 12/16/17 Immunization History Tetanus Immunization: Unsure Exam Narrative Exam Narrative: GENERAL: Well-nourished, well-developed male patient, in no acute distress SKIN: Warm and dry. Posterior aspect of left hand with minimal edema and tenderness on palpation with scabbed wound; there is no cellulitic process or palpable abscess or fluctuance; patient says is from his IV when he was in ICU. No lymphangitis. No signs of infection. HEAD: Atraumatic. Normocephalic. EYES: Pupils equal and round. ENT: Mucosa pink and moist. NECK: Supple. Trachea midline. CARDIOVASCULAR: Regular rate and rhythm. No murmur appreciated. RESPIRATORY: No accessory muscle use. Clear to auscultation. Breath sounds equal bilaterally. GASTROINTESTINAL: Abdomen soft, non-tender, nondistended. Hepatic and splenic margins not palpable. Bowel sounds are active 4 quadrants. MUSCULOSKELETAL: No obvious deformities. No clubbing. No cyanosis. No edema. BACK: No CVA tenderness. NEUROLOGICAL: Awake and alert. Oriented 3. No obvious cranial nerve deficits. Motor grossly within normal limits. Normal speech. Moves all extremities. 5/5 strength to all extremities. PSYCHIATRIC: No delusional thought processes. No hallucinations. Course Initial Documented Vital Signs Temperature 98.1 F 12/16/17 13:56 Pulse Rate 121 H 12/16/17 13:56 Respiratory Rate 16 12/16/17 13:56 Blood Pressure 130/81 12/16/17 13:56 Pulse Oximetry 96 12/16/17 13:56 Last Documented Vital Signs Temperature 98.1 F 12/16/17 13:56 Pulse Rate 103 H 12/16/17 14:58 Respiratory Rate 19 12/16/17 14:58 Blood Pressure 130/81 12/16/17 13:56 Pulse Oximetry 96 12/16/17 14:58 Medical Decision Making [facility] Narrative Medical decision making narrative: Patient presents under a Benito act. Physical examination and vital signs are essentially unremarkable. Patient has no medical complaints to report. Psych screen has been ordered. If the laboratory results are unremarkable, the patient will be medically cleared for psychiatric evaluation and disposition. 1432: Patient was brought from the psychiatric unit with complaint of chest pain. 6 out of 10. Patient placed on cardiopulmonary monitor. EKG, troponin, CK-MB, chest x-ray, aspirin ordered. 1517: CBC unremarkable. Troponin less than 0.02. CK-MB 2.9. Carbon dioxide 14.5 with anion gap 21. Discussed finding with Dr. Villa and ABG, lactic acid, normal saline bolus, ordered. 1709: Dr. Villa gave report to Dr. Hagan for admission. Medical Screen Exam Complete: Yes Emergency Medical Condition: Yes Differential Diagnosis Differential Diagnosis: Polysubstance abuse, alcohol abuse, substance-induced mood disorder, IV drug abuse, medical clearance for psychiatric evaluation Lab Data Result diagrams: 12/16/17 14:14 12/16/17 14:14 Lab Results 12/16/17 12/16/17 12/16/17 Range/Units 14:14 14:14 14:14 WBC 7.4 (4.0-11.0) th/mm3 RBC 5.64 (4.50-5.90) mil/mm3 Hgb 16.6 (13.0-17.0) gm/dL Hct 47.7 (39.0-51.0) % MCV 84.6 (80.0-100.0) fL MCH 29.4 (27.0-34.0) pg MCHC 34.7 (32.0-36.0) % RDW 13.4 (11.6-17.2) % Plt Count 365 (150-450) th/mm3 MPV 7.3 (7.0-11.0) fL Prelim Diff (Auto) Slide review pending Neut % (Auto) 53.3 (16.0-70.0) % Lymph % (Auto) 34.7 (9.0-44.0) % [place] % (Auto) 9.8 H (0.0-8.0) % Eos % (Auto) 1.4 (0.0-4.0) % Baso % (Auto) 0.8 (0.0-2.0) % Neut # (Auto) 3.9 (1.8-7.7) th/mm3 Lymph # (Auto) 2.6 (1.0-4.8) th/mm3 [place] # (Auto) 0.7 (0.0-0.9) th/mm3 Eos # (Auto) 0.1 (0.0-0.4) th/mm3 Baso # (Auto) 0.1 (0.0-0.2) th/mm3 WBC Differential . Diff Scan Auto diff confirmed Differential Comment . Platelet Estimate High H (Normal) Platelet Morphology Normal (Normal) Puncture Site Patient Temperature O2 Saturation (90-100) % ABG pH (7.380-7.420) ABG pCO2 (38-42) mmHg ABG pO2 (61-120) mmHg ABG HCO3 (22-26) mmol/L ABG O2 Content (12.0-20.0) Vol % ABG Base Excess (-2-2) mmol/L ABG Methemoglobin (0-2) % Nish Test Hemoglobin (12.0-16.0) G/DL Carboxyhemoglobin (0-4) % O2 Delivery Device Inspired O2 % Critical Value Sodium (136-145) meq/L Potassium (3.5-5.1) meq/L Chloride (98-107) meq/L Carbon Dioxide (21.0-32.0) meq/L Anion Gap (5-15) meq/L BUN (7-18) mg/dL Creatinine (0.60-1.30) mg/dL Estimated GFR (>89) mL/min Random Glucose (74-106) mg/dL Osmolality (275-295) mosm/kg Lactic Acid (0.4-2.0) mmol/L Calcium (8.5-10.1) mg/dL Total Bilirubin (0.2-1.0) mg/dL AST (15-37) U/L ALT (12-78) U/L Alkaline Phosphatase (45-117) U/L Total Creatine Kinase (39-308) U/L CK-MB (CK-2) (0.5-3.6) ng/mL Troponin I (0.02-0.05) ng/mL Total Protein (6.4-8.2) g/dL Albumin (3.4-5.0) g/dL TSH (0.358-3.740) uIU/mL Salicylates Less than 1.7 L (2.8-20.0) mg/dL Acetaminophen Cancelled Serum Alcohol (0-5) mg/dL 12/16/17 12/16/17 12/16/17 Range/Units 14:14 15:55 16:15 WBC (4.0-11.0) th/mm3 RBC (4.50-5.90) mil/mm3 Hgb (13.0-17.0) gm/dL Hct (39.0-51.0) % MCV (80.0-100.0) fL MCH (27.0-34.0) pg MCHC (32.0-36.0) % RDW (11.6-17.2) % Plt Count (150-450) th/mm3 MPV (7.0-11.0) fL Prelim Diff (Auto) Neut % (Auto) (16.0-70.0) % Lymph % (Auto) (9.0-44.0) % [place] % (Auto) (0.0-8.0) % Eos % (Auto) (0.0-4.0) % Baso % (Auto) (0.0-2.0) % Neut # (Auto) (1.8-7.7) th/mm3 Lymph # (Auto) (1.0-4.8) th/mm3 [place] # (Auto) (0.0-0.9) th/mm3 Eos # (Auto) (0.0-0.4) th/mm3 Baso # (Auto) (0.0-0.2) th/mm3 WBC Differential Diff Scan Differential Comment Platelet Estimate (Normal) Platelet Morphology (Normal) Puncture Site Right radial Patient Temperature 98.6 O2 Saturation 95 (90-100) % ABG pH 7.42 (7.380-7.420) ABG pCO2 30 L (38-42) mmHg ABG pO2 84 (61-120) mmHg ABG HCO3 19 L (22-26) mmol/L ABG O2 Content 20.2 H (12.0-20.0) Vol % ABG Base Excess -4.9 L (-2-2) mmol/L ABG Methemoglobin 0.5 (0-2) % Nish Test Present Hemoglobin 15.2 (12.0-16.0) G/DL Carboxyhemoglobin 1.1 (0-4) % O2 Delivery Device Ra Inspired O2 21 % Critical Value No Sodium 141 (136-145) meq/L Potassium 3.4 L (3.5-5.1) meq/L Chloride 106 (98-107) meq/L Carbon Dioxide 14.5 L (21.0-32.0) meq/L Anion Gap 21 H (5-15) meq/L BUN 21 H (7-18) mg/dL Creatinine 1.19 (0.60-1.30) mg/dL Estimated GFR 71 L (>89) mL/min Random Glucose 104 (74-106) mg/dL Osmolality 306 H (275-295) mosm/kg Lactic Acid (0.4-2.0) mmol/L Calcium 8.9 (8.5-10.1) mg/dL Total Bilirubin 0.4 (0.2-1.0) mg/dL AST 21 (15-37) U/L ALT 22 (12-78) U/L Alkaline Phosphatase 49 (45-117) U/L Total Creatine Kinase 165 (39-308) U/L CK-MB (CK-2) 2.9 (0.5-3.6) ng/mL Troponin I Less than 0.02 L (0.02-0.05) ng/mL Total Protein 8.0 D (6.4-8.2) g/dL Albumin 3.8 (3.4-5.0) g/dL TSH 1.220 (0.358-3.740) uIU/mL Salicylates (2.8-20.0) mg/dL Acetaminophen Less than 2.0 L Serum Alcohol 68 H (0-5) mg/dL 12/16/17 Range/Units 16:15 WBC (4.0-11.0) th/mm3 RBC (4.50-5.90) mil/mm3 Hgb (13.0-17.0) gm/dL Hct (39.0-51.0) % MCV (80.0-100.0) fL MCH (27.0-34.0) pg MCHC (32.0-36.0) % RDW (11.6-17.2) % Plt Count (150-450) th/mm3 MPV (7.0-11.0) fL Prelim Diff (Auto) Neut % (Auto) (16.0-70.0) % Lymph % (Auto) (9.0-44.0) % [place] % (Auto) (0.0-8.0) % Eos % (Auto) (0.0-4.0) % Baso % (Auto) (0.0-2.0) % Neut # (Auto) (1.8-7.7) th/mm3 Lymph # (Auto) (1.0-4.8) th/mm3 [place] # (Auto) (0.0-0.9) th/mm3 Eos # (Auto) (0.0-0.4) th/mm3 Baso # (Auto) (0.0-0.2) th/mm3 WBC Differential Diff Scan Differential Comment Platelet Estimate (Normal) Platelet Morphology (Normal) Puncture Site Patient Temperature O2 Saturation (90-100) % ABG pH (7.380-7.420) ABG pCO2 (38-42) mmHg ABG pO2 (61-120) mmHg ABG HCO3 (22-26) mmol/L ABG O2 Content (12.0-20.0) Vol % ABG Base Excess (-2-2) mmol/L ABG Methemoglobin (0-2) % Nish Test Hemoglobin (12.0-16.0) G/DL Carboxyhemoglobin (0-4) % O2 Delivery Device Inspired O2 % Critical Value Sodium (136-145) meq/L Potassium (3.5-5.1) meq/L Chloride (98-107) meq/L Carbon Dioxide (21.0-32.0) meq/L Anion Gap (5-15) meq/L BUN (7-18) mg/dL Creatinine (0.60-1.30) mg/dL Estimated GFR (>89) mL/min Random Glucose (74-106) mg/dL Osmolality (275-295) mosm/kg Lactic Acid 2.1 H (0.4-2.0) mmol/L Calcium (8.5-10.1) mg/dL Total Bilirubin (0.2-1.0) mg/dL AST (15-37) U/L ALT (12-78) U/L Alkaline Phosphatase (45-117) U/L Total Creatine Kinase (39-308) U/L CK-MB (CK-2) (0.5-3.6) ng/mL Troponin I (0.02-0.05) ng/mL Total Protein (6.4-8.2) g/dL Albumin (3.4-5.0) g/dL TSH (0.358-3.740) uIU/mL Salicylates (2.8-20.0) mg/dL Acetaminophen Serum Alcohol (0-5) mg/dL Imaging Data Radiologist's impression: Chest X-Ray 12/16/17 14:29 CONCLUSION: Negative for an acute process Discharge Plan Discharge Disposition Patient Disposition: 30 Still Patient Discharge Condition Condition: Stable Discharge Details Diagnosis: Encounter for psychiatric assessment, Polysubstance abuse, Metabolic acidosis, increased anion gap Physicians Team ED Provider: Angel Villa ED Midlevel Provider: Jeana Tidwell Primary Care Provider: Primary Care Physici,Ekaterina Rxs /Orders / Referrals /Forms Prescriptions: No Action No Known Home Medications RF: 0 Status ED Status: With Doctor
[2017-12-16 14:47] LABS: Baso # (Auto) 0.1 th/mm3 (0.0-0.2); Baso % (Auto) 0.8 % (0.0-2.0); Eos # (Auto) 0.1 th/mm3 (0.0-0.4); Eos % (Auto) 1.4 % (0.0-4.0); Hematocrit 47.7 % (39.0-51.0); Hemoglobin 16.6 gm/dL (13.0-17.0); Lymph # (Auto) 2.6 th/mm3 (1.0-4.8); Lymph % (Auto) 34.7 % (9.0-44.0); Mean Corpuscular HGB Conc 34.7 % (32.0-36.0); Mean Corpuscular Hemoglobin 29.4 pg (27.0-34.0); Mean Corpuscular Volume 84.6 fL (80.0-100.0); Mean Platelet Volume 7.3 fL (7.0-11.0); Mono # (Auto) 0.7 th/mm3 (0.0-0.9); Mono % (Auto) 9.8 % (0.0-8.0); Neut # (Auto) 3.9 th/mm3 (1.8-7.7); Neut % (Auto) 53.3 % (16.0-70.0); Platelet Count 365 th/mm3 (150-450); Red Blood Count 5.64 mil/mm3 (4.50-5.90); Red Cell Distribution Width 13.4 % (11.6-17.2); White Blood Count 7.4 th/mm3 (4.0-11.0)
[2017-12-16 14:59] VITALS: PULSE 103; RESP 19
[2017-12-16 15:04] LABS: Alanine Aminotransferase 22 U/L (12-78); Albumin 3.8 g/dL (3.4-5.0); Alcohol 68 mg/dL (0-5); Anion Gap 21 meq/L (5-15); Aspartate Aminotransferase 21 U/L (15-37); Blood Urea Nitrogen 21 mg/dL (7-18); Calcium 8.9 mg/dL (8.5-10.1); Carbon Dioxide 14.5 meq/L (21.0-32.0); Chloride 106 meq/L (98-107); Glomerular Filtration Rate 71 mL/min (>89); Glucose,Random 104 mg/dL (74-106); Potassium 3.4 meq/L (3.5-5.1); Sodium 141 meq/L (136-145)
[2017-12-16 15:11] LABS: Alkaline Phosphatase 49 U/L (45-117); Creatine Kinase 165 U/L (39-308)
--- NOTE | 2017-12-16 15:19 | XR ---
EXAM DATE: 12/16/2017 2:29 PM EDT AGE/SEX: 32 years / Male INDICATIONS: Chest pain. CLINICAL DATA: This is the patient's initial encounter. Patient reports that signs and symptoms have been present for 1 day and indicates a pain score of 6/10. MEDICAL/SURGICAL HISTORY: None. None. COMPARISON: [facility] [place] 1V SINGLE AP, 12/12/2017. . FINDINGS: A single AP view of the chest demonstrates the lungs to be symmetrically aerated without evidence of mass, infiltrate or effusion. The cardiomediastinal contours are unremarkable. Osseous structures a re intact. CONCLUSION: Negative for an acute process Electronically signed by: Greg Phillip MD 12/16/2017 3:18 PM EDT
[2017-12-16 15:23] LABS: Creatine Kinase MB 2.9 ng/mL (0.5-3.6)
[2017-12-16] MEDS ORDERED: Sod Chloride 0.9% Inj 1,000 ML IV.SIG SCH ×3 (15:30→17:00)
[2017-12-16 16:04] LABS: ABG Base Excess -4.9 mmol/L (-2-2); ABG PCO2 30 mmHg (38-42); ABG PO2 84 mmHg (61-120)
[2017-12-16 16:17] LABS: Platelet Morphology Normal (Normal)
[2017-12-16] MEDS ORDERED: Bisacodyl 10 MG Supp RECTAL PRN (17:09)
[2017-12-16] MEDS ORDERED: Acetaminophen 325 MG Tablet PO PRN (17:09)
--- NOTE | 2017-12-16 17:14 | P.HP ---
History of Present Illness Service: Hospitalist Primary Care Physician: No Primary Care Physician Chief Complaint: Benito act. History of Present Illness: Mr. Herring is a 32-year-old male with a history of substance abuse who was brought to the emergency department under Benito act after he was found outside drinking alcohol. Per ED documentation, when patient was approached he claimed that he did not care about his life and subsequently police brought him to the hospital. However patient denies ever saying such things. He denies any suicidal or homicidal ideations. He denies using any drug use since he was discharged from the hospital. He only admits to drinking alcohol. He lives at a sober house ([facility]) and concerned about losing his space if he does not go back to his sober house today. Per ED documentation, patient admitted to using cocaine Dilaudid and heroin. However he categorically denies using any drugs since he was discharged from the hospital yesterday 12/15/2017. During the previous admission, patient was admitted for drug overdose as well as respiratory failure likely due to aspiration pneumonia. He was intubated in the previous admission as well. At the time of this interview, patient denies any chest pain, shortness of breath, fever or chills. He denies any changes in bowel or bladder habits. He would like to be discharged. However, he is under Benito act and understands that he needs to be cleared by psychiatrist. He request a psychiatrist to see him tonight. Past medical history: Multiple substance abuse, alcoholism, recent respiratory failure due to substance abuse, aspiration pneumonia Past surgical history: No previous major surgery. Social history: Patient has a history of. Family history: No family history of heart disease, diabetes. Review of Systems All other systems reviewed negative except as stated in [facility] - History History Provided By: Patient - Medical History Medical History: Medical History (Last Reviewed 12/16/17 @ 14:24 by [place] Nolan) GERD (gastroesophageal reflux disease) (Acute) - Surgical History Surgical History: Surgical History (Last Reviewed 12/16/17 @ 13:57 by Yamini Ray) No history of previous surgery (Acute) - Tobacco History Second Hand Smoke Exposure: No Smoking Status: Never smoker Tobacco Type: Cigarettes - Alcohol History How Often Do You Have a Drink Containing Alcohol: Monthly or less - Substance Use History Substance History: Active Abuse - Substance Use Type Crack/Cocaine Status: Active Route Used: Intravenously Last Used: 12/16/17 Heroin Status: Active Route Used: Intravenously Last Used: 12/16/17 Opiates Status: Active Route Used: Intravenously Last Used: 12/16/17 - Travel History Recent Travel in the [place] Within the Last 8 Weeks: Yes Recent Travel Out of the Country Within the Last 8 Weeks: No - Immunization History Tetanus Immunization: Unsure Medications and Allergies Active Medications: Active Medications Acetaminophen (Tylenol) 650 mg PO Q4H PRN PRN Reason: Headache, fever, pain 1-4 Al Hydroxide/Mg Hydroxide (Milk Of Magnesia Liq) 30 ml PO Q12H PRN PRN Reason: Mild Constipation Bisacodyl (Dulcolax Supp) 10 mg RECTAL DAILY PRN PRN Reason: SEVERE CONSITIPATION Sodium Chloride (Ns Inj) 1,000 mls @ 0 mls/hr IV.SIG BOLUS ALEXANDER Sodium Chloride (Ns Inj) 1,000 mls @ 0 mls/hr IV.SIG BOLUS ALEXANDER Sodium Chloride (Ns Inj) 1,000 mls @ 0 mls/hr IV.SIG BOLUS ALEXANDER Lactated Ringer's (Lr 1000 Ml Inj) 1,000 mls @ 125 mls/hr IV.CONT .Q8H ALEXANDER Lactulose (Lactulose Liq) 30 ml PO DAILY PRN PRN Reason: SEVERE CONSITIPATION Ondansetron HCl (Zofran Inj) 4 mg IV.PUSH Q6H PRN PRN Reason: NAUSEA OR VOMITING Sennosides (Senokot) 17.2 mg PO Q12H PRN PRN Reason: Moderate Constipation Allergies Allergy/AdvReac Type Severity Reaction Status Date / Time diphenhydramine Allergy Severe Anxiety Verified 12/16/17 13:55 metoclopramide Allergy Severe Anxiety Verified 12/16/17 13:55 Home Medications Medication Instructions Recorded Confirmed Type No Known Home Medications 12/16/17 12/16/17 History Exam Vital signs: Vital Signs 12/16/17 13:56 12/16/17 14:58 Temperature 98.1 F Pulse Rate 121 H 103 H Respiratory Rate 16 19 Blood Pressure 130/81 Pulse Oximetry 96 96 Intake & Output 12/15/17 12/16/17 12/16/17 18:59 06:59 18:59 Weight 90.718 kg Narrative: GENERAL: This is a well-nourished, well-developed patient, in no apparent distress. SKIN: No rashes, ecchymoses or lesions. Warm and dry. HEAD: Atraumatic. Normocephalic. No temporal or scalp tenderness. EYES: Pupils equal round and reactive. No injection or drainage. ENT: Nose without bleeding, purulent drainage or septal hematoma. Airway patent. NECK: Trachea midline. No lymphadenopathy. Supple, nontender, no meningeal signs. CARDIOVASCULAR: Regular rate and rhythm without murmurs, gallops, or rubs. No JVD. RESPIRATORY: Clear to auscultation. Breath sounds equal bilaterally. No wheezes , rales, or rhonchi. GASTROINTESTINAL: Abdomen soft, non-tender, nondistended. No guarding. MUSCULOSKELETAL: Extremities without clubbing, cyanosis, or edema. NEUROLOGICAL: Awake and alert. Cranial nerves II through XII intact. No focal neurological deficits. Normal speech. Results - Labs CBC & Chem 7: 12/16/17 14:14 12/16/17 14:14 Labs: Laboratory Results - last 24 hr 12/16/17 12/16/17 12/16/17 14:14 14:14 14:14 WBC 7.4 RBC 5.64 Hgb 16.6 Hct 47.7 MCV 84.6 MCH 29.4 MCHC 34.7 RDW 13.4 Plt Count 365 MPV 7.3 Prelim Diff (Auto) Slide review pending Neut % (Auto) 53.3 Lymph % (Auto) 34.7 [place] % (Auto) 9.8 H Eos % (Auto) 1.4 Baso % (Auto) 0.8 Neut # (Auto) 3.9 Lymph # (Auto) 2.6 [place] # (Auto) 0.7 Eos # (Auto) 0.1 Baso # (Auto) 0.1 WBC Differential . Diff Scan Auto diff confirmed Differential Comment . Platelet Estimate High H Platelet Morphology Normal Puncture Site Patient Temperature O2 Saturation ABG pH ABG pCO2 ABG pO2 ABG HCO3 ABG O2 Content ABG Base Excess ABG Methemoglobin Nish Test Hemoglobin Carboxyhemoglobin O2 Delivery Device Inspired O2 Critical Value Sodium Potassium Chloride Carbon Dioxide Anion Gap BUN Creatinine Estimated GFR Random Glucose Osmolality Lactic Acid Calcium Total Bilirubin AST ALT Alkaline Phosphatase Total Creatine Kinase CK-MB (CK-2) Troponin I Total Protein Albumin TSH Salicylates Less than 1.7 L Acetaminophen Cancelled Serum Alcohol 12/16/17 12/16/17 12/16/17 14:14 15:55 16:15 WBC RBC Hgb Hct MCV MCH MCHC RDW Plt Count MPV Prelim Diff (Auto) Neut % (Auto) Lymph % (Auto) [place] % (Auto) Eos % (Auto) Baso % (Auto) Neut # (Auto) Lymph # (Auto) [place] # (Auto) Eos # (Auto) Baso # (Auto) WBC Differential Diff Scan Differential Comment Platelet Estimate Platelet Morphology Puncture Site Right radial Patient Temperature 98.6 O2 Saturation 95 ABG pH 7.42 ABG pCO2 30 L ABG pO2 84 ABG HCO3 19 L ABG O2 Content 20.2 H ABG Base Excess -4.9 L ABG Methemoglobin 0.5 Nish Test Present Hemoglobin 15.2 Carboxyhemoglobin 1.1 O2 Delivery Device Ra Inspired O2 21 Critical Value No Sodium 141 Potassium 3.4 L Chloride 106 Carbon Dioxide 14.5 L Anion Gap 21 H BUN 21 H Creatinine 1.19 Estimated GFR 71 L Random Glucose 104 Osmolality 306 H Lactic Acid Calcium 8.9 Total Bilirubin 0.4 AST 21 ALT 22 Alkaline Phosphatase 49 Total Creatine Kinase 165 CK-MB (CK-2) 2.9 Troponin I Less than 0.02 L Total Protein 8.0 D Albumin 3.8 TSH 1.220 Salicylates Acetaminophen Less than 2.0 L Serum Alcohol 68 H 12/16/17 16:15 WBC RBC Hgb Hct MCV MCH MCHC RDW Plt Count MPV Prelim Diff (Auto) Neut % (Auto) Lymph % (Auto) [place] % (Auto) Eos % (Auto) Baso % (Auto) Neut # (Auto) Lymph # (Auto) [place] # (Auto) Eos # (Auto) Baso # (Auto) WBC Differential Diff Scan Differential Comment Platelet Estimate Platelet Morphology Puncture Site Patient Temperature O2 Saturation ABG pH ABG pCO2 ABG pO2 ABG HCO3 ABG O2 Content ABG Base Excess ABG Methemoglobin Nish Test Hemoglobin Carboxyhemoglobin O2 Delivery Device Inspired O2 Critical Value Sodium Potassium Chloride Carbon Dioxide Anion Gap BUN Creatinine Estimated GFR Random Glucose Osmolality Lactic Acid 2.1 H Calcium Total Bilirubin AST ALT Alkaline Phosphatase Total Creatine Kinase CK-MB (CK-2) Troponin I Total Protein Albumin TSH Salicylates Acetaminophen Serum Alcohol - Imaging Impressions Chest X-Ray 12/16/17 14:29 CONCLUSION: Negative for an acute process Caprini VTE Risk Assessment Caprini VTE Risk Assessment: No/Low Risk (score <= 1) Caprini Risk Assessment Model: Point Value = 1 Point Value = 2 Point Value = 3 Point Value = 5 Age 41-60 Minor surgery BMI > 25 kg/m2 Swollen legs Varicose veins or History of unexplained or recurrent spontaneous Oral contraceptives or hormone replacement Sepsis (< 1 month) Serious lung disease, including pneumonia (< 1 month) Abnormal pulmonary function Acute myocardial infarction Congestive heart failure (< 1 month) History of inflammatory bowel disease Medical patient at bed rest Age 61-74 Arthroscopic surgery Major open surgery (> 45 min) Laparoscopic surgery (> 45 min) Malignancy Confined to bed (> 72 hours) Immobilizing plaster cast Central venous access Age >= 75 History of VTE Family history of VTE Factor V Leiden Prothrombin [id number] Lupus anticoagulant Anticardiolipin antibodies Elevated serum homocysteine Heparin-induced thrombocytopenia Other congenital or acquired thrombophilia Stroke (< 1 month) Elective arthroplasty Hip, pelvis, or leg fracture Acute spinal cord injury (< 1 month) Prophylaxis Regimen: Total Risk Factor Score Risk Level Prophylaxis Regimen 0-1 Low Early ambulation 2 Moderate Order ONE of the following: *Sequential Compression Device (SCD) *Heparin 5000 units SQ BID 3-4 Higher Order ONE of the following medications: *Heparin 5000 units SQ TID *Enoxaparin/Lovenox 40 mg SQ daily (WT < 150 kg, CrCl > 30 mL/min) *Enoxaparin/Lovenox 30 mg SQ daily (WT < 150 kg, CrCl > 10-29 mL/min) *Enoxaparin/Lovenox 30 mg SQ BID (WT < 150 kg, CrCl > 30 mL/min) AND/OR *Sequential Compression Device (SCD) 5 or more Highest Order ONE of the following medications: *Heparin 5000 units SQ TID (Preferred with Epidurals) *Enoxaparin/Lovenox 40 mg SQ daily (WT < 150 kg, CrCl > 30 mL/min) *Enoxaparin/Lovenox 30 mg SQ daily (WT < 150 kg, CrCl > 10-29 mL/min) *Enoxaparin/Lovenox 30 mg SQ BID (WT < 150 kg, CrCl > 30 mL/min) AND *Sequential Compression Device (SCD) Assessment and Plan - Plan Mr. Herring is a 35-year-old male with a history of polysubstance abuse and recent hospitalization requiring intubation due to aspiration pneumonia, polysubstance abuse who was brought to the hospital under Benito act due to alcohol drinking by the side of the road as well as comments regarding not caring about his life. Patient denies ever saying such things. He also denies any suicidal or homicidal ideations. He denies any drug abuse since he was discharged from the hospital on 12/15/2017. He admits to drinking alcohol. Polysubstance abuse Metabolic acidosis -Patient denies any drug use since he was discharged on 12/15/2017. -Metabolic acidosis likely due to alcohol use. -Patient is asymptomatic. I discussed with psychiatrist instructor [employer] who informed me that he will lift benito act. Once benito act is lifted (an order on EMR or in the psychiatry consult note ), patient can be discharged. Discharge patient to home Condition on discharge: Improved Regular Diet as tolerated [place] activity Rx written: None. Follow-up with primary care physician within one week.
--- NOTE | 2017-12-16 18:10 | P.CONPSY ---
Provisional Diagnosis Admission Date: December 16, 2017 17:16 [place] I.: 1. Polysubstance abuse [place] II.: Deferred History of Present Illness Service: Psychiatry Consult date: 12/16/17 Requesting Physician: Seble Hagan Reason for Consult: Benito Act Primary Care Provider: No Primary Care Physician History of Present Illness: Mr. Herring is a 32-year-old male with a reported history of substance use issues who presents under a [place]ito act by law enforcement alleging that the patient was found drinking alcohol and told officers that he did not care about his life. Patient's alcohol level on presentation here was 68. Dr. Hagan has requested that I evaluate the patient's Benito act this evening as the patient is requesting discharge, noting that his sober living bed will be given away if he is not there to check in this evening. Reviewing the electronic medical record , I note that the patient was seen in psychiatric consultation by Dr. Gillespie 2 days ago with a diagnosis of unspecified psychosis at that time, although I do see there is some suspicion that his reported hallucinatory material may have been substance related. Patient seen and examined. Chart reviewed. Case discussed with Dr. Hagan. On my examination today, the patient tells me "I got picked up for drinking 4 Denny. Instead of taking me to long term, they brought me here." He admits to having substance use issues but denies the psychiatric ROS otherwise. He insists that the hallucinatory material that he had when he was seen by Dr. Gillespie was related to medications that he had received while he was hospitalized. He denies ever experiencing audiovisual hallucinations otherwise. He denies any audiovisual hallucinations now. Denies any command auditory hallucinations to hurt self or others. I can elicit no paranoia, no ideas of reference, no feelings of thought manipulation or other delusional material. I can elicit no depressive or hypomanic/manic symptoms. He denies any suicidal or homicidal ideation, intent or plan. As noted above, the patient is quite insistent that he must leave this evening so that he can keep his sober living bed. Remainder of the psychiatric ROS is negative. No acute physical complaints. Past psychiatric history: The patient denies a history of psychiatric diagnosis other than substance use issues. He denies a history of inpatient or outpatient psychiatric treatment. He denies a history of suicide attempts. He denies a history of violence. Family history: The patient denies a family history of serious mental illness, substance use disorder or suicide. Chemical dependency history: The patient reports that he abuses Dilaudid. He says that his most recent overdose was secondary to heroin being unknowingly mixed into his Dilaudid. He says that his alcohol use today was the first time in 14 months as he had been previously sober. He reports that he is active in 12-step programming and resides in a sober living environment. Social history: The patient is presently living in [facility] by the [employer]. He is single. He has 4 children, 3 of whom reside with their mother and another of whom is with [facility]CF. 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 He does have a history of robbery with a firearm and grand theft charges but denies any active legal issues. He denies any access to guns or firearms presently. He is a [employer]. He denies any history of abuse or mistreatment. With the patient's permission I endeavored first to obtain collateral from his sponsor, Mac at [phone]. However this number appears to be nonfunctional. With the patient's permission I then endeavored to obtain collateral information from his friend Jo Ann Araujo at [phone]. Ms. Araujo tells me she has known the patient for about 10 years. She reports that he has struggled for some time with substance use issues, and in fact she has filed a [place] act today to try to address this. However, Ms. Araujo knows of no history of mental illness and the patient other than substance use issues. She knows of no previous suicide attempts or history of violent behavior. She has no safety concerns about the patient being discharged from the hospital today. Review of Systems All other systems reviewed negative except as [facility] - History History Provided By: Patient - Medical History Medical History: Medical History (Last Reviewed 12/16/17 @ 14:24 by [place] Nolan) GERD (gastroesophageal reflux disease) (Acute) - Surgical History Surgical History: Surgical History (Last Reviewed 12/16/17 @ 13:57 by Yamini Ray) No history of previous surgery (Acute) - Tobacco History Second Hand Smoke Exposure: No Smoking Status: Never smoker Tobacco Type: Cigarettes - Alcohol History How Often Do You Have a Drink Containing Alcohol: Monthly or less - Substance Use History Substance History: Active Abuse - Substance Use Type Crack/Cocaine Status: Active Route Used: Intravenously Last Used: 12/16/17 Heroin Status: Active Route Used: Intravenously Last Used: 12/16/17 Opiates Status: Active Route Used: Intravenously Last Used: 12/16/17 - Travel History Recent Travel in the [place] Within the Last 8 Weeks: Yes Recent Travel Out of the Country Within the Last 8 Weeks: No - Immunization History Tetanus Immunization: Unsure Medications and Allergies Active Medications: Active Medications Acetaminophen (Tylenol) 650 mg PO Q4H PRN PRN Reason: Headache, fever, pain 1-4 Al Hydroxide/Mg Hydroxide (Milk Of Magnesia Liq) 30 ml PO Q12H PRN PRN Reason: Mild Constipation Bisacodyl (Dulcolax Supp) 10 mg RECTAL DAILY PRN PRN Reason: SEVERE CONSITIPATION Sodium Chloride (Ns Inj) 1,000 mls @ 0 mls/hr IV.SIG BOLUS ALEXANDER Sodium Chloride (Ns Inj) 1,000 mls @ 0 mls/hr IV.SIG BOLUS ALEXANDER Sodium Chloride (Ns Inj) 1,000 mls @ 0 mls/hr IV.SIG BOLUS ALEXANDER Lactated Ringer's (Lr 1000 Ml Inj) 1,000 mls @ 125 mls/hr IV.CONT .Q8H ALEXANDER Lactulose (Lactulose Liq) 30 ml PO DAILY PRN PRN Reason: SEVERE CONSITIPATION Ondansetron HCl (Zofran Inj) 4 mg IV.PUSH Q6H PRN PRN Reason: NAUSEA OR VOMITING Sennosides (Senokot) 17.2 mg PO Q12H PRN PRN Reason: Moderate Constipation Allergies Allergy/AdvReac Type Severity Reaction Status Date / Time diphenhydramine Allergy Severe Anxiety Verified 12/16/17 13:55 metoclopramide Allergy Severe Anxiety Verified 12/16/17 13:55 Home Medications Medication Instructions Recorded Confirmed Type No Known Home Medications 12/16/17 12/16/17 History Exam Vital signs: Vital Signs 12/16/17 13:56 12/16/17 14:58 Temperature 98.1 F Pulse Rate 121 H 103 H Respiratory Rate 16 19 Blood Pressure 130/81 Pulse Oximetry 96 96 Intake & Output 12/15/17 12/16/17 12/16/17 18:59 06:59 18:59 Weight 90.718 kg Narrative: Physical examination was completed by the primary team. On my examination today , the patient appears to be in no acute physical distress. No motor abnormalities noted. No signs of intoxication or withdrawal noted. Labs and vital signs reviewed. Laboratory Results - last 24 hr 12/16/17 12/16/17 12/16/17 14:14 14:14 14:14 WBC 7.4 RBC 5.64 Hgb 16.6 Hct 47.7 MCV 84.6 MCH 29.4 MCHC 34.7 RDW 13.4 Plt Count 365 MPV 7.3 Prelim Diff (Auto) Slide review pending Neut % (Auto) 53.3 Lymph % (Auto) 34.7 [place] % (Auto) 9.8 H Eos % (Auto) 1.4 Baso % (Auto) 0.8 Neut # (Auto) 3.9 Lymph # (Auto) 2.6 [place]ks # (Auto) 0.7 Eos # (Auto) 0.1 Baso # (Auto) 0.1 WBC Differential . Diff Scan Auto diff confirmed Differential Comment . Platelet Estimate High H Platelet Morphology Normal Puncture Site Patient Temperature O2 Saturation ABG pH ABG pCO2 ABG pO2 ABG HCO3 ABG O2 Content ABG Base Excess ABG Methemoglobin Nish Test Hemoglobin Carboxyhemoglobin O2 Delivery Device Inspired O2 Critical Value Sodium Potassium Chloride Carbon Dioxide Anion Gap BUN Creatinine Estimated GFR Random Glucose Osmolality Lactic Acid Calcium Total Bilirubin AST ALT Alkaline Phosphatase Total Creatine Kinase CK-MB (CK-2) Troponin I Total Protein Albumin TSH Salicylates Less than 1.7 L Acetaminophen Cancelled Serum Alcohol 12/16/17 12/16/17 12/16/17 14:14 15:55 16:15 WBC RBC Hgb Hct MCV MCH MCHC RDW Plt Count MPV Prelim Diff (Auto) Neut % (Auto) Lymph % (Auto) [place] % (Auto) Eos % (Auto) Baso % (Auto) Neut # (Auto) Lymph # (Auto) [place] # (Auto) Eos # (Auto) Baso # (Auto) WBC Differential Diff Scan Differential Comment Platelet Estimate Platelet Morphology Puncture Site Right radial Patient Temperature 98.6 O2 Saturation 95 ABG pH 7.42 ABG pCO2 30 L ABG pO2 84 ABG HCO3 19 L ABG O2 Content 20.2 H ABG Base Excess -4.9 L ABG Methemoglobin 0.5 Nish Test Present Hemoglobin 15.2 Carboxyhemoglobin 1.1 O2 Delivery Device Ra Inspired O2 21 Critical Value No Sodium 141 Potassium 3.4 L Chloride 106 Carbon Dioxide 14.5 L Anion Gap 21 H BUN 21 H Creatinine 1.19 Estimated GFR 71 L Random Glucose 104 Osmolality 306 H Lactic Acid Calcium 8.9 Total Bilirubin 0.4 AST 21 ALT 22 Alkaline Phosphatase 49 Total Creatine Kinase 165 CK-MB (CK-2) 2.9 Troponin I Less than 0.02 L Total Protein 8.0 D Albumin 3.8 TSH 1.220 Salicylates Acetaminophen Less than 2.0 L Serum Alcohol 68 H 12/16/17 16:15 WBC RBC Hgb Hct MCV MCH MCHC RDW Plt Count MPV Prelim Diff (Auto) Neut % (Auto) Lymph % (Auto) [place] % (Auto) Eos % (Auto) Baso % (Auto) Neut # (Auto) Lymph # (Auto) [place] # (Auto) Eos # (Auto) Baso # (Auto) WBC Differential Diff Scan Differential Comment Platelet Estimate Platelet Morphology Puncture Site Patient Temperature O2 Saturation ABG pH ABG pCO2 ABG pO2 ABG HCO3 ABG O2 Content ABG Base Excess ABG Methemoglobin Nish Test Hemoglobin Carboxyhemoglobin O2 Delivery Device Inspired O2 Critical Value Sodium Potassium Chloride Carbon Dioxide Anion Gap BUN Creatinine Estimated GFR Random Glucose Osmolality Lactic Acid 2.1 H Calcium Total Bilirubin AST ALT Alkaline Phosphatase Total Creatine Kinase CK-MB (CK-2) Troponin I Total Protein Albumin TSH Salicylates Acetaminophen Serum Alcohol Mental Status Examination Appearance: Appropriate Consciousness: Alert Orientation: x4 Motor Activity: Other (No motor abnormalities noted) Speech: Unremarkable Language: Adequate Fund of Knowledge: Adequate Attention and Concentration: Adequate (No evidence of delirium) Memory: Unremarkable (Grossly intact on clinical exam) Mood: Appropriate Affect: Appropriate Thought Process & Associations: Intact, Logical, Linear Thought Content: Appropriate Hallucination Type: None Delusion Type: None Suicidal Ideation: No Suicidal Plan: No Suicidal Intention: No Homicidal Ideation: No Homicidal Plan: No Homicidal Intention: No Mental Status Exam Remarks: Insight and judgment are perhaps fair to poor, likely chronically so Assessment and Plan - Assessment (1) Polysubstance abuse Code(s): F19.10 - Other psychoactive substance abuse, uncomplicated Status: Acute - Plan Plan: This is a 32-year-old male with psychiatric history as detailed above who presents under a Benito act. On my examination today, the patient denies any suicidal or homicidal ideation, intent or plan. I can appreciate no unstable mental illness as defined under the Benito act in this patient at this time, although he does have obvious substance use issues. There is no evidence of self-care deficit from a mental illness as defined under the Benito act. I have obtained reassuring collateral information from a friend of the patient. Weighing the relevant factors and based on the available evidence, I judge clerk that the patient does not presently meet the Benito act criteria. There is no evidence of imminent risk of harm to self or others from mental illness as defined under the Benito act nor is there evidence of self-care deficit from mental illness as defined under the Benito act. I have lifted the Benito act. I have supported the patient and his desire for ongoing sobriety through sober living. I have counseled the patient regarding warning signs for need to return to the psychiatric emergency room as part of a general safety plan. Patient is psychiatrically clear for discharge. Case again discussed with Dr. Hagan at the conclusion of my consultation. Thank you very much for this consultation. Please call or page with questions. Justification for Continued Inpatient Stay: Per Dr. Hagan.
--- NOTE | 2017-12-17 12:50 | ECG ---
Date Performed: 12/16/2017 Time Performed: 14:41:05 PTAGE: 32 years EKG: Sinus rhythm WITH SHORT MN INTERVAL NONSPECIFIC T-WAVE ABNORMALITY BORDERLINE ECG Since PREVIOUS TRACING , no significant change noted PREVIOUS TRACIN12/04/2017 11.46 DOCTOR: Elvis Bowser Interpretating Date/Time 12/17/2017 12:49:48
== END 2017-12-16 21:00 | disposition home or self-care (01) ==
LOC: NEPD 13:43 → NEDA 17:16
PROVIDERS: ADMIT Hospitalist; ATTEND Hospitalist